=== PATIENT | female | born 1940 | race Caucasian/White ===

== ENCOUNTER 2016-08-03 11:08 | Outpatient (CLI) | payer MEDICARE, OTHER | END 2016-08-03 11:09 | disposition home or self-care (01) | DX: I48.91 Unspecified atrial fibrillation (principal); Z79.01 Long term (current) use of anticoagulants ==

== ENCOUNTER 2016-08-29 13:43 | Outpatient (CLI) | payer MEDICARE, OTHER | END 2016-08-29 13:44 | disposition home or self-care (01) | DX: I42.9 Cardiomyopathy, unspecified (principal); I50.32 Chronic diastolic (congestive) heart failure; I10 Essential (primary) hypertension ==

== ENCOUNTER 2016-08-31 13:42 | Outpatient (CLI) | payer MEDICARE, OTHER | END 2016-08-31 13:43 | disposition home or self-care (01) | DX: I48.91 Unspecified atrial fibrillation (principal); Z79.01 Long term (current) use of anticoagulants ==

== ENCOUNTER 2016-09-14 14:00 | Outpatient (CLI) | payer MEDICARE, OTHER | END 2016-09-14 14:01 | disposition home or self-care (01) | DX: Z79.01 Long term (current) use of anticoagulants (principal); I48.91 Unspecified atrial fibrillation ==

== ENCOUNTER 2016-10-13 10:09 | Outpatient (CLI) | payer MEDICARE, OTHER | END 2016-10-13 10:10 | disposition home or self-care (01) | DX: I48.91 Unspecified atrial fibrillation (principal); Z79.01 Long term (current) use of anticoagulants ==

== ENCOUNTER 2016-11-13 10:10 | Outpatient (CLI) | payer MEDICARE, OTHER | END 2016-11-13 10:11 | disposition home or self-care (01) | DX: I48.91 Unspecified atrial fibrillation (principal); Z79.01 Long term (current) use of anticoagulants ==

== ENCOUNTER 2016-11-27 09:23 | Outpatient (CLI) | payer MEDICARE, OTHER | END 2016-11-27 09:24 | disposition home or self-care (01) | LOC: LAB.F 09:23 | PROVIDERS: ATTEND Internal Medicine | DX: I48.91 Unspecified atrial fibrillation (principal); Z79.01 Long term (current) use of anticoagulants | CPT/HCPCS: 85610 ==

== ENCOUNTER 2016-12-06 09:24 | Outpatient (CLI) | payer MEDICARE, OTHER | END 2016-12-06 09:25 | disposition home or self-care (01) | LOC: LAB.F 09:24 | PROVIDERS: ATTEND Internal Medicine | DX: I48.91 Unspecified atrial fibrillation (principal); Z79.01 Long term (current) use of anticoagulants | CPT/HCPCS: 85610 ==

== ENCOUNTER 2017-01-03 12:48 | Outpatient (CLI) | payer MEDICARE, OTHER | END 2017-01-03 12:49 | disposition home or self-care (01) | LOC: LAB.F 12:48 | PROVIDERS: ATTEND Internal Medicine | DX: I48.91 Unspecified atrial fibrillation (principal); Z79.01 Long term (current) use of anticoagulants | CPT/HCPCS: 85610 ==

== ENCOUNTER 2017-01-31 10:38 | Outpatient (CLI) | payer MEDICARE, OTHER ==
[2017-01-31 18:57] LABS: CALCIUM 9.3 mg/dL (8.5-10.3); POTASSIUM 4.1 mmol/L (3.5-5.0)
== END 2017-01-31 10:39 | disposition home or self-care (01) ==
LOC: LAB.F 10:38
PROVIDERS: ATTEND Internal Medicine
DX: I48.91 Unspecified atrial fibrillation (principal); I34.0 Nonrheumatic mitral (valve) insufficiency; Z79.01 Long term (current) use of anticoagulants; I49.5 Sick sinus syndrome; I47.2 Ventricular tachycardia; I10 Essential (primary) hypertension; I42.9 Cardiomyopathy, unspecified
CPT/HCPCS: 36415; 80048; 83880; 85610

== ENCOUNTER 2017-02-28 09:48 | Outpatient (CLI) | payer MEDICARE, OTHER | END 2017-02-28 09:49 | disposition home or self-care (01) | LOC: LAB.F 09:48 | PROVIDERS: ATTEND Internal Medicine | DX: I48.91 Unspecified atrial fibrillation (principal); Z79.01 Long term (current) use of anticoagulants | CPT/HCPCS: 85610 ==

== ENCOUNTER 2017-03-14 08:43 | Outpatient (CLI) | payer MEDICARE, OTHER | END 2017-03-14 08:44 | disposition home or self-care (01) | LOC: LAB.F 08:43 | PROVIDERS: ATTEND Internal Medicine | DX: I48.91 Unspecified atrial fibrillation (principal); Z79.01 Long term (current) use of anticoagulants | CPT/HCPCS: 85610 ==

== ENCOUNTER 2017-03-28 11:23 | Outpatient (CLI) | payer MEDICARE, OTHER | END 2017-03-28 11:24 | disposition home or self-care (01) | LOC: LAB.F 11:23 | PROVIDERS: ATTEND Internal Medicine | DX: I48.91 Unspecified atrial fibrillation (principal); Z79.01 Long term (current) use of anticoagulants | CPT/HCPCS: 85610 ==

== ENCOUNTER 2017-04-04 09:02 | Outpatient (CLI) | payer MEDICARE, OTHER ==
[2017-04-04 18:41] LABS: CALCIUM 9.1 mg/dL (8.5-10.3); POTASSIUM 4.2 mmol/L (3.5-5.0)
== END 2017-04-04 09:03 | disposition home or self-care (01) ==
LOC: LAB.F 09:02
PROVIDERS: ATTEND Internal Medicine Cardiovascular Disease
DX: I10 Essential (primary) hypertension (principal); I50.32 Chronic diastolic (congestive) heart failure
CPT/HCPCS: 36415; 80048; 83880

== ENCOUNTER 2017-04-11 12:49 | Outpatient (CLI) | payer MEDICARE, OTHER | END 2017-04-11 12:50 | disposition home or self-care (01) | LOC: LAB.F 12:49 | PROVIDERS: ATTEND Internal Medicine | DX: Z79.01 Long term (current) use of anticoagulants (principal); I48.91 Unspecified atrial fibrillation | CPT/HCPCS: 85610 ==

== ENCOUNTER 2017-04-18 13:03 | Outpatient (CLI) | payer MEDICARE, OTHER | END 2017-04-18 13:04 | disposition home or self-care (01) | LOC: LAB.F 13:03 | PROVIDERS: ATTEND Internal Medicine | DX: I48.91 Unspecified atrial fibrillation (principal); Z79.01 Long term (current) use of anticoagulants | CPT/HCPCS: 85610 ==

== ENCOUNTER 2017-06-13 09:35 | Outpatient (CLI) | payer MEDICARE, OTHER | END 2017-06-13 09:36 | disposition home or self-care (01) | LOC: LAB.F 09:35 | PROVIDERS: ATTEND Internal Medicine | DX: I48.91 Unspecified atrial fibrillation (principal); Z79.01 Long term (current) use of anticoagulants | CPT/HCPCS: 85610 ==

== ENCOUNTER 2017-07-11 10:46 | Outpatient (CLI) | payer MEDICARE, OTHER ==
[2017-07-11 17:47] LABS: BASOPHILS % (AUTO) 0.7 %; EOSINOPHILS # (AUTO) 0.2 10^3/uL (0.0-0.7); EOSINOPHILS % (AUTO) 3.2 %; HGB - HEMOGLOBIN 14.8 g/dL (12.0-16.0); LYMPHOCYTES % (AUTO) 19.9 %; MEAN CORPUSCULAR HEMOGLOBIN 31.4 pg (27.0-31.0); MEAN CORPUSCULAR HGB CONC 33.1 g/dL (32.0-36.0); MEAN PLATELET VOLUME 9.2 fL (7.9-10.8); MONOCYTES # (AUTO) 0.4 10^3/uL (0.0-1.0); MONOCYTES % (AUTO) 7.5 %; NEUTROPHILS # (AUTO) 3.4 10^3/uL (1.5-6.6); NEUTROPHILS % (AUTO) 68.7 %; PLT - PLATELET COUNT 170 10^3/uL (130-450); RED BLOOD COUNT 4.71 10^6/uL (4.20-5.40); WHITE BLOOD COUNT 4.9 x10^3/uL (4.8-10.8)
[2017-07-11 18:04] LABS: ALBUMIN 4.2 g/dL (3.2-5.5); ALBUMIN/GLOBULIN RATIO 1.4 (1.0-2.2); ALKALINE PHOSPHATASE 62 IU/L (42-121); ALT ALANINE AMINOTRANSFERASE 14 IU/L (10-60); AST ASPARTATE AMINOTRANSFERASE 26 IU/L (10-42); BILIRUBIN,TOTAL 0.9 mg/dL (0.2-1.0); BUN - BLOOD UREA NITROGEN 25 mg/dL (6-20); CALCIUM 8.9 mg/dL (8.5-10.3); CARBON DIOXIDE - CO2 25 mmol/L (21-32); CHLORIDE 103 mmol/L (101-111); CHOL/HDL RATIO 2.1 (<4.4); CHOLESTEROL 177 mg/dL; CREATININE 0.9 mg/dL (0.4-1.0); GFR - MDRD 61 (>89); GLUCOSE 95 mg/dL (70-100); HDL CHOLESTEROL 83 mg/dL; LDL CHOLESTEROL,CALCULATED 83 mg/dL; SODIUM 136 mmol/L (135-145); TOTAL PROTEIN 7.1 g/dL (6.7-8.2); VLDL CHOLESTEROL 11 mg/dL
[2017-07-11 18:29] LABS: HB2 TOTAL 16.2 g/dL; HEMOGLOBIN A1C 0.62 g/dL; HEMOGLOBIN A1C % 5.7 % (4.6-6.2)
== END 2017-07-11 10:47 | disposition home or self-care (01) ==
LOC: LAB.F 10:46
PROVIDERS: ATTEND Internal Medicine
DX: I48.91 Unspecified atrial fibrillation (principal); R73.9 Hyperglycemia, unspecified; I10 Essential (primary) hypertension; Z79.01 Long term (current) use of anticoagulants; I45.9 Conduction disorder, unspecified; J45.909 Unspecified asthma, uncomplicated
CPT/HCPCS: 36415; 80053; 80061; 83036; 85025; 85610

== ENCOUNTER 2017-07-31 12:01 | Outpatient (CLI) | payer MEDICARE, OTHER ==
--- NOTE | 2017-08-01 16:06 | Mammography Report ---
DATE OF SERVICE: 07/31/2017 DIGITAL SCREENING MAMMOGRAM: 07/31/2017 CLINICAL INDICATION: A 77-year-old, for screening. COMPARISON: 07/2015, 07/2014, 03/2013, 02/2012, 01/2011, 01/2010. TECHNIQUE: Routine CC and MLO projections were obtained of the breasts. FINDINGS: The breasts again demonstrate scattered fibroglandular densities bilaterally. Coarse and punctate, typically benign calcifications are present. No suspicious masses, clustered microcalcifications, or regions of architectural distortion are identified. IMPRESSION: BENIGN FINDINGS. RECOMMENDATION: ROUTINE ANNUAL SCREENING UNLESS OTHERWISE CLINICALLY INDICATED. BIRADS CATEGORY 2-BENIGN FINDINGS. STANDARD QUALIFYING STATEMENTS: 1. This examination was reviewed with the aid of Computer-Aided Detection (CAD). 2. A negative or benign imaging report should not delay biopsy if clinically suspicious findings are present. Consider surgical consultation if warranted. More than 5% of cancers are not identified by imaging. 3. Dense breasts may obscure an underlying neoplasm. TD: 08/01/2017 17:04
== END 2017-07-31 12:02 | disposition home or self-care (01) ==
LOC: DI 12:01
PROVIDERS: ATTEND Internal Medicine
DX: Z12.31 Encounter for screening mammogram for malignant neoplasm of breast (principal)
CPT/HCPCS: 77067

== ENCOUNTER 2017-08-07 10:45 | Outpatient (CLI) | payer MEDICARE, OTHER | END 2017-08-07 10:46 | disposition home or self-care (01) | LOC: LAB.F 10:45 | PROVIDERS: ATTEND Internal Medicine | DX: I48.91 Unspecified atrial fibrillation (principal); Z79.01 Long term (current) use of anticoagulants | CPT/HCPCS: 85610 ==

== ENCOUNTER 2017-08-21 11:01 | Outpatient (CLI) | payer MEDICARE, OTHER | END 2017-08-21 11:02 | disposition home or self-care (01) | LOC: LAB.F 11:01 | PROVIDERS: ATTEND Internal Medicine | DX: I48.91 Unspecified atrial fibrillation (principal); Z79.01 Long term (current) use of anticoagulants | CPT/HCPCS: 85610 ==

== ENCOUNTER 2017-09-05 12:41 | Outpatient (CLI) | payer MEDICARE, OTHER | END 2017-09-05 12:42 | disposition home or self-care (01) | LOC: LAB.F 12:41 | PROVIDERS: ATTEND Internal Medicine | DX: I48.91 Unspecified atrial fibrillation (principal); Z79.01 Long term (current) use of anticoagulants | CPT/HCPCS: 85610 ==

== ENCOUNTER 2017-10-04 12:53 | Outpatient (CLI) | payer MEDICARE, OTHER | END 2017-10-04 12:54 | disposition home or self-care (01) | LOC: LAB.F 12:53 | PROVIDERS: ATTEND Internal Medicine | DX: I48.91 Unspecified atrial fibrillation (principal); Z79.01 Long term (current) use of anticoagulants | CPT/HCPCS: 85610 ==

== ENCOUNTER 2017-11-01 11:16 | Outpatient (CLI) | payer MEDICARE, OTHER | END 2017-11-01 11:17 | disposition home or self-care (01) | LOC: LAB.F 11:16 | PROVIDERS: ATTEND Internal Medicine | DX: I48.91 Unspecified atrial fibrillation (principal); Z79.01 Long term (current) use of anticoagulants | CPT/HCPCS: 85610 ==

== ENCOUNTER 2017-11-20 10:20 | Outpatient (CLI) | payer MEDICARE, OTHER | END 2017-11-20 10:21 | disposition home or self-care (01) | LOC: LAB.F 10:20 | PROVIDERS: ATTEND Internal Medicine | DX: I48.91 Unspecified atrial fibrillation (principal); Z79.01 Long term (current) use of anticoagulants | CPT/HCPCS: 85610 ==

== ENCOUNTER 2017-12-05 09:28 | Outpatient (CLI) | payer MEDICARE, OTHER | END 2017-12-05 09:29 | disposition home or self-care (01) | LOC: LAB.F 09:28 | PROVIDERS: ATTEND Internal Medicine | DX: I48.91 Unspecified atrial fibrillation (principal); Z79.01 Long term (current) use of anticoagulants | CPT/HCPCS: 85610 ==

== ENCOUNTER 2017-12-20 13:06 | Outpatient (CLI) | payer MEDICARE, OTHER ==
[2017-12-20 17:43] LABS: PT - PROTHROMBIN TIME 47.9 secs (9.9-12.6)
[2017-12-20 17:52] LABS: INR 4.5 (0.8-1.2)
== END 2017-12-20 13:07 | disposition home or self-care (01) ==
LOC: LAB.F 13:06
PROVIDERS: ATTEND Internal Medicine
DX: I48.91 Unspecified atrial fibrillation (principal); Z79.01 Long term (current) use of anticoagulants
CPT/HCPCS: 36415; 85610

== ENCOUNTER 2017-12-27 13:04 | Outpatient (CLI) | payer MEDICARE, OTHER | END 2017-12-27 13:05 | disposition home or self-care (01) | LOC: LAB.F 13:04 | PROVIDERS: ATTEND Internal Medicine | DX: I48.91 Unspecified atrial fibrillation (principal); Z79.01 Long term (current) use of anticoagulants | CPT/HCPCS: 85610 ==

== ENCOUNTER 2018-01-10 10:09 | Outpatient (CLI) | payer MEDICARE, OTHER | END 2018-01-10 10:10 | disposition home or self-care (01) | LOC: LAB.F 10:09 | PROVIDERS: ATTEND Internal Medicine | DX: I48.91 Unspecified atrial fibrillation (principal); Z79.01 Long term (current) use of anticoagulants | CPT/HCPCS: 85610 ==

== ENCOUNTER 2018-01-24 13:09 | Outpatient (CLI) | payer MEDICARE, OTHER | END 2018-01-24 13:10 | disposition home or self-care (01) | LOC: LAB.F 13:09 | PROVIDERS: ATTEND Internal Medicine | DX: I48.91 Unspecified atrial fibrillation (principal); Z79.01 Long term (current) use of anticoagulants | CPT/HCPCS: 85610 ==

== ENCOUNTER 2018-01-31 14:19 | Outpatient (CLI) | payer MEDICARE, OTHER | END 2018-01-31 14:20 | disposition home or self-care (01) | LOC: LAB.F 14:19 | PROVIDERS: ATTEND Internal Medicine | DX: I48.91 Unspecified atrial fibrillation (principal); Z79.01 Long term (current) use of anticoagulants | CPT/HCPCS: 85610 ==

== ENCOUNTER 2018-02-14 13:20 | Outpatient (CLI) | payer MEDICARE, OTHER | END 2018-02-14 13:21 | disposition home or self-care (01) | LOC: LAB.F 13:20 | PROVIDERS: ATTEND Internal Medicine | DX: I48.91 Unspecified atrial fibrillation (principal); Z79.01 Long term (current) use of anticoagulants | CPT/HCPCS: 85610 ==

== ENCOUNTER 2018-02-28 11:11 | Outpatient (CLI) | payer MEDICARE, OTHER | END 2018-02-28 11:12 | disposition home or self-care (01) | LOC: LAB.F 11:11 | PROVIDERS: ATTEND Internal Medicine | DX: I48.91 Unspecified atrial fibrillation (principal); Z79.01 Long term (current) use of anticoagulants | CPT/HCPCS: 85610 ==

== ENCOUNTER 2018-03-28 14:43 | Outpatient (CLI) | payer MEDICARE, OTHER | END 2018-03-28 14:44 | disposition home or self-care (01) | LOC: LAB.F 14:43 | PROVIDERS: ATTEND Internal Medicine | DX: I48.91 Unspecified atrial fibrillation (principal); Z79.01 Long term (current) use of anticoagulants | CPT/HCPCS: 85610 ==

== ENCOUNTER 2018-04-25 13:42 | Outpatient (CLI) | payer MEDICARE, OTHER | END 2018-04-25 13:43 | disposition home or self-care (01) | LOC: LAB.F 13:42 | PROVIDERS: ATTEND Internal Medicine | DX: I48.91 Unspecified atrial fibrillation (principal); Z79.01 Long term (current) use of anticoagulants | CPT/HCPCS: 85610 ==

== ENCOUNTER 2018-05-09 10:15 | Outpatient (CLI) | payer MEDICARE, OTHER | END 2018-05-09 10:16 | disposition home or self-care (01) | LOC: LAB.F 10:15 | PROVIDERS: ATTEND Internal Medicine | DX: I48.91 Unspecified atrial fibrillation (principal) | CPT/HCPCS: 85610 ==

== ENCOUNTER 2018-06-06 08:46 | Outpatient (CLI) | payer MEDICARE, OTHER | END 2018-06-06 08:47 | disposition home or self-care (01) | LOC: LAB.F 08:46 | PROVIDERS: ATTEND Internal Medicine | DX: I48.91 Unspecified atrial fibrillation (principal); Z79.01 Long term (current) use of anticoagulants | CPT/HCPCS: 85610 ==

== ENCOUNTER 2018-06-20 10:16 | Outpatient (CLI) | payer MEDICARE, OTHER | END 2018-06-20 10:17 | disposition home or self-care (01) | LOC: LAB.F 10:16 | PROVIDERS: ATTEND Internal Medicine | DX: I48.91 Unspecified atrial fibrillation (principal); Z79.01 Long term (current) use of anticoagulants | CPT/HCPCS: 85610 ==

== ENCOUNTER 2018-07-17 11:07 | Outpatient (CLI) | payer MEDICARE, OTHER ==
[2018-07-17 17:47] LABS: BASOPHILS % (AUTO) 0.6 %; EOSINOPHILS # (AUTO) 0.2 10^3/uL (0.0-0.7); EOSINOPHILS % (AUTO) 2.6 %; HGB - HEMOGLOBIN 15.4 g/dL (12.0-16.0); LYMPHOCYTES # (AUTO) 1.1 10^3/uL (1.5-3.5); LYMPHOCYTES % (AUTO) 17.6 %; MEAN CORPUSCULAR HGB CONC 32.7 g/dL (32.0-36.0); MEAN CORPUSCULAR VOLUME 97.7 fL (81.0-99.0); MEAN PLATELET VOLUME 9.3 fL (7.9-10.8); MONOCYTES # (AUTO) 0.5 10^3/uL (0.0-1.0); MONOCYTES % (AUTO) 8.3 %; NEUTROPHILS # (AUTO) 4.4 10^3/uL (1.5-6.6); NEUTROPHILS % (AUTO) 70.9 %; PLT - PLATELET COUNT 203 10^3/uL (130-450); RED BLOOD COUNT 4.83 10^6/uL (4.20-5.40); RED CELL DISTRIBUTION WIDTH 14.8 % (12.0-15.0); WHITE BLOOD COUNT 6.2 x10^3/uL (4.8-10.8)
[2018-07-17 17:55] LABS: ALBUMIN 4.1 g/dL (3.2-5.5); ALBUMIN/GLOBULIN RATIO 1.3 (1.0-2.2); CALCIUM 9.4 mg/dL (8.5-10.3); TOTAL PROTEIN 7.3 g/dL (6.7-8.2)
[2018-07-17 18:30] LABS: HB2 TOTAL 16.5 g/dL; HEMOGLOBIN A1C 0.62 g/dL; HEMOGLOBIN A1C % 5.6 % (4.6-6.2)
== END 2018-07-17 11:08 | disposition home or self-care (01) ==
LOC: LAB.F 11:07
PROVIDERS: ATTEND Internal Medicine
DX: R73.9 Hyperglycemia, unspecified (principal); N18.9 Chronic kidney disease, unspecified; I48.91 Unspecified atrial fibrillation; I12.9 Hypertensive chronic kidney disease with stage 1 through stage 4 chronic kidney disease, or unspecified chronic kidney disease; Z79.899 Other long term (current) drug therapy
CPT/HCPCS: 36415; 80053; 83036; 84443; 85025

== ENCOUNTER 2018-10-22 10:04 | Outpatient (CLI) | payer MEDICARE, OTHER ==
[2018-10-22 18:25] LABS: CALCIUM 9.6 mg/dL (8.5-10.3); CREATININE 1.1 mg/dL (0.4-1.0)
== END 2018-10-22 10:05 | disposition home or self-care (01) ==
LOC: LAB.F 10:04
PROVIDERS: ATTEND Internal Medicine Cardiovascular Disease
DX: I50.32 Chronic diastolic (congestive) heart failure (principal)
CPT/HCPCS: 36415; 80048; 83880

== ENCOUNTER 2019-02-14 09:09 | Outpatient (CLI) | payer MEDICARE, OTHER ==
[2019-02-14 17:37] LABS: BUN - BLOOD UREA NITROGEN 26 mg/dL (6-20); CALCIUM 9.7 mg/dL (8.5-10.3); CARBON DIOXIDE - CO2 23 mmol/L (21-32); CHLORIDE 104 mmol/L (101-111); CHOL/HDL RATIO 2.7 (<4.4); CHOLESTEROL 167 mg/dL; GFR - MDRD 54 (>89); GLUCOSE 115 mg/dL (70-100); HDL CHOLESTEROL 61 mg/dL; LDL CHOLESTEROL,CALCULATED 87 mg/dL; LDL/HDL RATIO 1.4 (<4.4); SODIUM 140 mmol/L (135-145); VLDL CHOLESTEROL 19 mg/dL
== END 2019-02-14 09:10 | disposition home or self-care (01) ==
LOC: LAB.S 09:09
PROVIDERS: ATTEND Internal Medicine Cardiovascular Disease
DX: I34.0 Nonrheumatic mitral (valve) insufficiency (principal); I42.9 Cardiomyopathy, unspecified; I50.32 Chronic diastolic (congestive) heart failure; I48.2 Chronic atrial fibrillation; I11.0 Hypertensive heart disease with heart failure
CPT/HCPCS: 36415; 80048; 80061; 81599; 82172; 83721; 83880

== ENCOUNTER 2019-03-10 09:02 | Outpatient (CLI) | payer MEDICARE | END 2019-03-10 09:03 | disposition EMS.NT | LOC: EMS 09:02 | PROVIDERS: ATTEND Surgery | DX: R10.30 Lower abdominal pain, unspecified (principal) ==

== ENCOUNTER 2019-03-10 13:22 | Emergency (ER) | payer MEDICARE ==
--- NOTE | 2019-03-10 13:52 | ED Physician Documentation ---
History of Present Illness - Stated complaint Stated Complaint: SOA - Chief complaint Chief Complaint: Abd Pain - History obtained from History obtained from: Patient, Family - History of Present Illness Pain level max: 5 Pain level now: 3 - Additonal information Additional information: 79 year old female with a history of CHF, states shortness of breath increased for the past month. Saw her assembly hand and states that he said everything was "okay". No chest pain. No palpitations. No history of coronary artery disease per the patient. She does have a pacemaker in place. Does not know when her last echocardiogram was. Does not use oxygen at home. She also states that she has had intermittent lower abdominal pain for the past several days. Stools have been normal. No vomiting. Occasional nausea. Nothing makes it better or worse. Review of Systems Ten Systems: 10 systems reviewed and negative Constitutional: denies: Fever, Chills Ears: denies: Ear pain Nose: denies: Rhinorrhea / runny nose, Congestion Respiratory: denies: Dyspnea, Cough GI: denies: Vomiting, Diarrhea Skin: denies: Rash Musculoskeletal: reports: Back pain (chronic and unchanged.). 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: None : Incontinence, Frequency HEENT: None Psych: Depression, Anxiety Musculoskeletal: Osteoarthritis, Chronic back pain Derm: Eczema - Past Surgical History Past Surgical History: Yes Ortho: Knee replacement, Arthroscopic surgery, Spine surgery, Other /ENGINEERING DESIGN SUPERVISOR: Dilation and currettage Cardiovascular: Pacemaker - Present Medications Home Medications: Ambulatory Orders Medication Instructions Recorded Confirmed Acetaminophen [Pain Relief] 2 each PO BID 08/26/13 03/10/19 Carvedilol [Coreg] 25 mg PO BID 08/26/13 03/10/19 Cholecalciferol (Vitamin D3) 1 unit PO DAILY 08/26/13 03/10/19 [Vitamin D] Morphine Sulfate [Morphine Sulfate 30 mg PO BID 08/26/13 03/10/19 ER] Albuterol Sulf [Ventolin Hfa 1 - 2 puffs INH Q4HR PRN #1 inhaler 03/10/19 Inhaler] Celecoxib 200 mg PO DAILY 03/10/19 03/10/19 DULoxetine [Cymbalta] 30 mg PO DAILY 03/10/19 03/10/19 Dabigatran Etexilate Mesylate 150 mg PO 03/10/19 [Pradaxa] Pregabalin [Lyrica] 75 mg PO 03/10/19 Spironolactone 50 mg PO 03/10/19 - Allergies Allergies/Adverse Reactions: Allergies Allergy/AdvReac Type Severity Reaction Status Date / Time ibuprofen [From Advil] Allergy Intermediate Rash Verified 08/26/13 10:17 gabapentin Allergy Hives Verified 03/10/19 13:45 - Social History Does the pt smoke?: No Smoking Status: Never smoker Does the pt drink ETOH?: No Does the pt have substance abuse?: No - Immunizations Immunizations are current?: Yes - POLST Patient has POLST: No PD ED PE NORMAL - Vitals Vital signs reviewed: Yes - General General: Alert and oriented X 3, No acute distress, Well developed/nourished, Other (morbidly obese) - HEENT HEENT: PERRL, Moist mucous membranes - Neck Neck: Supple, no meningeal sign - Cardiac Cardiac: RRR, Strong equal pulses - Respiratory Respiratory: No respiratory distress, Clear bilaterally - Abdomen Abdomen: Soft, Non tender, Non distended, Other (easily reducible umbilical hernia) - Derm Derm: Warm and dry - Extremities Extremities: Other (trace edema B) - Neuro Neuro: Alert and oriented X 3 - Psych Psych: Normal mood, Normal affect Results - Vitals Vitals: Vital Signs - 24 hr 03/10/19 03/10/19 03/10/19 13:28 14:56 15:39 Temperature 36.2 C L 36.6 C Heart Rate 89 62 70 Respiratory 18 15 18 Rate Blood Pressure 133/90 H 150/63 H O2 Saturation 97 96 Oxygen O2 Source Room air - EKG (time done) 1402 Rate: Rate (enter#) (60) Rhythm: Paced - Labs Labs: Laboratory Tests 03/10/19 03/10/19 03/10/19 13:55 13:55 13:55 WBC 7.7 RBC 4.74 Hgb 15.5 Hct 45.3 MCV 95.6 MCH 32.7 H MCHC 34.2 RDW 13.4 Plt Count 207 MPV 10.4 Neut # (Auto) 6.2 Lymph # (Auto) 1.1 L [place] # (Auto) 0.4 Eos # (Auto) 0.0 Baso # (Auto) 0.0 Absolute Nucleated RBC 0.00 Nucleated RBC % 0.0 Sodium 137 Potassium 4.3 Chloride 104 Carbon Dioxide 22 Anion Gap 11.0 BUN 23 H Creatinine 1.1 H Estimated GFR (MDRD) 48 L Glucose 121 H Calcium 9.9 Total Bilirubin 1.3 H AST 27 ALT 19 Alkaline Phosphatase 69 Troponin I High Sens 15.9 H* B-Natriuretic Peptide Total Protein 7.6 Albumin 4.1 Globulin 3.5 Albumin/Globulin Ratio 1.2 Lipase 15 L 03/10/19 13:55 WBC RBC Hgb Hct MCV MCH MCHC RDW Plt Count MPV Neut # (Auto) Lymph # (Auto) [place] # (Auto) Eos # (Auto) Baso # (Auto) Absolute Nucleated RBC Nucleated RBC % Sodium Potassium Chloride Carbon Dioxide Anion Gap BUN Creatinine Estimated GFR (MDRD) Glucose Calcium Total Bilirubin AST ALT Alkaline Phosphatase Troponin I High Sens B-Natriuretic Peptide 75 Total Protein Albumin Globulin Albumin/Globulin Ratio Lipase - Rads (name of study) cxr Radiology: Prelim report reviewed, EMP read contemporaneously, See rad report (No radiographic evidence for acute cardiopulmonary process. ) PD MEDICAL DECISION MAKING - ED course Complexity details: reviewed old records, reviewed results, re-evaluated patient, considered differential, d/w patient, d/w family ED course: 79-year-old female presents to the emergency department with shortness of breath for the past month. Also intermittent abdominal pain for several days. No significant laboratory abnormalities. EKG does not show any acute abnormalities. Chest x-ray does not show any acute abnormalities. She actually feels much better with an albuterol treatment. Abdominal pain resolved as well. Abdomen is soft, nontender nondistended. She is ambulating without difficulty. Will place on an albuterol inhaler and follow-up with her doctor. Patient counseled regarding signs and symptoms for which I believe and urgent re- evaluation would be necessary. Patient with good understanding of and agreement to plan and is comfortable going home at this time This document was made in part using voice recognition software. While efforts are made to proofread this document, sound alike and grammatical errors may occur. Departure - Departure Disposition: 01 Home, Self Care Clinical Impression: Dyspnea Qualifiers: Dyspnea type: unspecified Qualified Code(s): R06.00 - Dyspnea, unspecified Abdominal pain Qualifiers: Abdominal location: generalized Qualified Code(s): R10.84 - Generalized abdominal pain Condition: Good Instructions: ED Abdominal Pain Unkn Cause, ED Dyspnea Shortness of Breath Follow-Up: Ladarius Johns MD [Primary Care Provider] - Within 1 week Prescriptions: Albuterol Sulf [Ventolin Hfa Inhaler] 1 - 2 puffs INH Q4HR PRN #1 inhaler PRN Reason: Shortness Of Air/Wheezing Comments: The cause of your symptoms is unclear today. Follow-up with your doctor for further care. You can use the albuterol as needed as well. The prescription was sent to [facility] in [place]. Discharge Date/Time: 03/10/19 15:40
[2019-03-10 13:59] LABS: BASOPHILS % (AUTO) 0.4 %; EOSINOPHILS % (AUTO) 0.3 %; HGB - HEMOGLOBIN 15.5 g/dL (12.0-16.0); LYMPHOCYTES # (AUTO) 1.1 10^3/uL (1.5-3.5); LYMPHOCYTES % (AUTO) 13.8 %; MEAN CORPUSCULAR HEMOGLOBIN 32.7 pg (27.0-31.0); MEAN CORPUSCULAR HGB CONC 34.2 g/dL (32.0-36.0); MEAN CORPUSCULAR VOLUME 95.6 fL (81.0-99.0); MEAN PLATELET VOLUME 10.4 fL (7.9-10.8); MONOCYTES # (AUTO) 0.4 10^3/uL (0.0-1.0); MONOCYTES % (AUTO) 5.2 %; NEUTROPHILS # (AUTO) 6.2 10^3/uL (1.5-6.6); NEUTROPHILS % (AUTO) 79.8 %; PLT - PLATELET COUNT 207 10^3/uL (130-450); RED BLOOD COUNT 4.74 10^6/uL (4.20-5.40); RED CELL DISTRIBUTION WIDTH 13.4 % (12.0-15.0); WHITE BLOOD COUNT 7.7 x10^3/uL (4.8-10.8)
[2019-03-10 14:13] LABS: ALBUMIN 4.1 g/dL (3.2-5.5); ALBUMIN/GLOBULIN RATIO 1.2 (1.0-2.2); BILIRUBIN,TOTAL 1.3 mg/dL (0.2-1.0); CALCIUM 9.9 mg/dL (8.5-10.3); CREATININE 1.1 mg/dL (0.4-1.0); TOTAL PROTEIN 7.6 g/dL (6.7-8.2)
--- NOTE | 2019-03-10 14:16 | XRAY Report ---
Reason: chest pain Procedure Date: 03/10/2019 Accession Number: [id number] / [id number] Procedure: XR - Chest 1 View X-Ray CPT Code: 82063 FULL RESULT: EXAM: CHEST RADIOGRAPHY EXAM DATE: 03/10/2019 02:01 PM. CLINICAL HISTORY: Chest pain. COMPARISON: 11/28/2013 12:03 PM. TECHNIQUE: 1 view. FINDINGS: Lungs/Pleura: No focal opacities evident. No pleural effusion. No pneumothorax. Mediastinum: Stable heart size and mediastinum. Stable position of lead for cardiac pacemaker. Other: None. IMPRESSION: No radiographic evidence for acute cardiopulmonary process. RADIA
[2019-03-10] MEDS ORDERED: LORazepam 2 MG/ML VIAL IVP STA (14:39)
[2019-03-10] MEDS ORDERED: ALBUTEROL NEB 2.5 MG/3 ML INH STA (14:39)
[2019-03-10 15:40] VITALS: BP 150/63
== END 2019-03-10 15:40 | disposition home or self-care (01) ==
LOC: ED 13:22
DX: R06.00 Dyspnea, unspecified (principal); R10.84 Generalized abdominal pain; I10 Essential (primary) hypertension
CPT/HCPCS: 36415; 71045; 80053; 83690; 83880; 84484; 85025; 93005; 94640; 99284

== ENCOUNTER 2019-07-28 10:40 | Outpatient (CLI) | payer MEDICARE ==
[2019-07-28] MEDS ORDERED: IOVERSOL 320 100 ML VIAL IVP ONE ×2 (10:48→14:11)
[2019-07-28] MEDS ORDERED: IOVERSOL 320 50 ML VIAL ONE (10:48)
[2019-07-28 11:24] LABS: CREATININE 1.2 mg/dL (0.4-1.0)
[2019-07-28] MEDS ORDERED: IOVERSOL 320 50 ML VIAL PO ONE (14:11)
--- NOTE | 2019-07-29 03:09 | CT Report ---
Reason: STOMACH ULCER Procedure Date: 07/28/2019 Accession Number: [id number] / [id number] Procedure: CT - Abdomen/Pelvis W CPT Code: Final Report FULL RESULT: EXAM: CT ABDOMEN AND PELVIS EXAM DATE: 07/28/2019 12:12 PM. CLINICAL HISTORY: STOMACH ULCER. COMPARISONS: None. TECHNIQUE: Routine helical CT imaging was performed through the abdomen and pelvis. IV contrast: OPTI 320 90ML. Enteric contrast: Yes. Reconstructions: Coronal and sagittal. In accordance with CT protocol optimization, one or more of the following dose reduction techniques were utilized for this exam: automated exposure control, adjustment of mA and/or KV based on patient size, or use of iterative reconstructive technique. FINDINGS: Lung Bases: Bibasilar interstitial opacities are seen, which may reflect scarring versus atelectasis. Cardiomegaly. No pericardial effusion. Cardiac device leads are partially imaged extending into the right ventricle. Liver: 6 mm hypoattenuating lesion in the hepatic dome, which is too small to characterize but may represent a small cyst. No intrahepatic mass. Gallbladder/Bile Ducts: Distended gallbladder without gallbladder wall thickening or pericholecystic fluid. The common bile duct measures 6 mm near the ampulla. No intrahepatic or extrahepatic biliary dilatation. Spleen: Normal. Pancreas: Knee replacement. Adrenal Glands: Normal. Kidneys: Small focal areas of parenchymal scarring are seen in both kidneys. There is no renal mass or hydronephrosis. Peritoneal Cavity/Bowel: The stomach is distended and filled with contrast. No focal areas of gastric wall thickening are seen. The bowel gas pattern is nonobstructive. Diverticulosis is seen throughout the colon without evidence of diverticulitis. The appendix is normal. No free intraperitoneal air or pneumatosis is seen. There is no lymphadenopathy. No ascites is present. Pelvic Organs: The bladder is empty. The pelvic viscera are within normal limits. There is no free pelvic fluid. Vasculature: No aortic aneurysm. Mild atherosclerotic plaque calcifications are seen in the aorta and iliac arteries. Bones: Posterior spinal fusion instrumentation is seen at L2 L4 with a disk spacer at L3-L4. Grade 1 anterolisthesis is present at L3-L4. Degenerative disk disease is greatest at L2-L3. Other: None. IMPRESSION: 1. No gastric wall thickening to suggest gastritis. 2. Diverticulosis without evidence of diverticulitis. 3. Small right hepatic dome hypoattenuating lesion, may represent a small cyst. 4. Minimal parenchymal scarring in both kidneys. RADIA
== END 2019-07-28 10:41 | disposition home or self-care (01) ==
LOC: DI 10:40
PROVIDERS: ATTEND Internal Medicine Gastroenterology
DX: K57.30 Diverticulosis of large intestine without perforation or abscess without bleeding (principal); K76.9 Liver disease, unspecified
CPT/HCPCS: 36415; 74177; 82565; Q9967

== ENCOUNTER 2020-09-03 10:27 | Outpatient (CLI) | payer MEDICARE ==
[2020-09-03 15:35] LABS: CALCIUM 9.5 mg/dL (8.5-10.3); CREATININE 1.2 mg/dL (0.4-1.0); POTASSIUM 4.3 mmol/L (3.5-5.0)
== END 2020-09-03 10:28 | disposition home or self-care (01) ==
LOC: LAB.S 10:27
PROVIDERS: ATTEND Internal Medicine Cardiovascular Disease
DX: I50.32 Chronic diastolic (congestive) heart failure (principal)
CPT/HCPCS: 36415; 80048; 83880

== ENCOUNTER 2020-10-23 21:40 | Outpatient (CLI) | payer MEDICARE | END 2020-10-23 21:41 | disposition short-term general hospital (02) | LOC: EMS 21:40 | DX: R53.1 Weakness (principal); R41.0 Disorientation, unspecified; R47.81 Slurred speech; R60.0 Localized edema; L53.9 Erythematous condition, unspecified | CPT/HCPCS: A0425; A0429 ==

== ENCOUNTER 2021-02-19 17:58 | Outpatient (CLI) | payer MEDICARE | END 2021-02-19 17:59 | disposition EMS.NT | LOC: EMS 17:58 | DX: L53.9 Erythematous condition, unspecified (principal); R60.0 Localized edema ==

== ENCOUNTER 2021-02-19 19:12 | Inpatient (IN) | payer MEDICARE ==
[2021-02-19] MEDS ORDERED: AMPICILLIN/SULBACTAM 3 GM in SODIUM CHLORIDE 0.9% MINIBAG 100 ML IV STA (19:36)
[2021-02-19] MEDS ORDERED: MORPHINE 10 MG/ML VIAL IVP STA (19:36)
--- NOTE | 2021-02-19 19:37 | ED Physician Documentation ---
PD HPI LOWER EXT INJURY - Stated complaint Stated Complaint: RT LEG SCRATCH - Chief complaint Chief Complaint: Ext Problem - History obtained from History obtained from: Patient, Family - History of Present Illness Where injury occurred: Home Timing - details: Gradual onset Worsened by: Moving Associated symptoms: Swelling Contributing factors: No: Anticoagulated - Additional information Additional information: She is scratched by her dog 3 days ago, today it became red and swollen. No fevers. The thing that bothers her most actually is her chronic back pain. She generally does not feel well. Review of Systems Ten Systems: 10 systems reviewed and negative Constitutional: reports: Reviewed and negative Eyes: reports: Reviewed and negative Ears: reports: Reviewed and negative Nose: reports: Reviewed and negative Throat: reports: Reviewed and negative Cardiac: reports: Reviewed and negative PD PAST MEDICAL HISTORY - Past Medical History Cardiovascular: Congestive heart failure, Hypertension, Atrial fibrillation, Other Respiratory: Asthma Neuro: None Endocrine/Autoimmune: None GI: Other ELECTION SUPERVISOR: None : Incontinence, Frequency HEENT: None Psych: Depression, Anxiety Musculoskeletal: Osteoarthritis, Chronic back pain Derm: Eczema - Past Surgical History Past Surgical History: Yes Ortho: Knee replacement, Arthroscopic surgery, Spine surgery, Other /ELECTION SUPERVISOR: Dilation and currettage Cardiovascular: Pacemaker - Present Medications Home Medications: Ambulatory Orders Medication Instructions Recorded Confirmed Acetaminophen [Pain Relief] 2 each PO BID 08/26/13 02/19/21 Cholecalciferol (Vitamin D3) 1 unit PO DAILY 08/26/13 02/19/21 [Vitamin D] Morphine Sulfate [Morphine Sulfate 30 mg PO BID 08/26/13 02/19/21 ER] carvediloL [Coreg] 6.25 mg PO BID 08/26/13 02/19/21 DULoxetine [Cymbalta] 30 mg PO DAILY 03/10/19 02/19/21 Pregabalin [Lyrica] 75 mg PO BID 03/10/19 02/19/21 Spironolactone 50 mg PO QDBREAKFAST 03/10/19 02/19/21 Apixaban [Eliquis] 5 mg BID 02/19/21 02/19/21 Chlorthalidone 1 tab DAILY 02/19/21 02/19/21 Omeprazole [PriLOSEC] 1 cap DAILY 02/19/21 02/19/21 - Allergies Allergies/Adverse Reactions: Allergies Allergy/AdvReac Type Severity Reaction Status Date / Time ibuprofen [From Advil] Allergy Intermediate Rash Verified 02/19/21 19:15 gabapentin Allergy Hives Verified 02/19/21 19:15 - Social History Does the pt smoke?: No Smoking Status: Never smoker Does the pt drink ETOH?: No Does the pt have substance abuse?: No - Immunizations Immunizations are current?: Yes - POLST Patient has POLST: No PD ED PE NORMAL - Vitals Vital signs reviewed: Yes - General General: Alert and oriented X 3, No acute distress - HEENT HEENT: PERRL, EOMI - Neck Neck: Supple, no meningeal sign, No bony TTP - Cardiac Cardiac: RRR, No murmur - Respiratory Respiratory: No respiratory distress - Abdomen Abdomen: Normal bowel sounds, Non tender - Back Back: No CVA TTP, No spinal TTP - Derm Derm: Normal color, Warm and dry - Extremities Extremities: Other (There is a small jagged wound on the lateral right calf with just a touch of purulent drainage that was cultured during examination. There is beet red cellulitis up to the knee and down to the ankle.) - Neuro Neuro: Alert and oriented X 3, Normal speech - Psych Psych: Normal mood, Normal affect Results - Vitals Vitals: Vital Signs - 24 hr 02/19/21 02/19/21 02/19/21 19:15 19:20 20:14 Temperature 36.8 C Heart Rate 60 60 60 Respiratory 16 14 16 Rate Blood Pressure 118/55 L 125/70 125/70 O2 Saturation 98 95 93 Oxygen O2 Source Room air - Labs Labs: Microbiology 02/19/21 19:40 Wound Culture - Preliminary Leg - Right Laboratory Tests 02/19/21 02/19/21 02/19/21 19:46 19:46 19:46 WBC 17.7 H RBC 4.73 Hgb 15.4 Hct 47.1 H MCV 99.6 H MCH 32.6 H MCHC 32.7 RDW 14.3 Plt Count 195 MPV 10.3 Neut # (Auto) 16.6 H Lymph # (Auto) 0.3 L [place] # (Auto) 0.5 Eos # (Auto) 0.1 Baso # (Auto) 0.1 Absolute Nucleated RBC 0.00 Nucleated RBC % 0.0 Sodium 135 Potassium 4.2 Chloride 96 L Carbon Dioxide 28 Anion Gap 11.0 BUN 28 H Creatinine 1.4 H Estimated GFR (MDRD) 36 L Glucose 144 H Lactic Acid 2.5 H Calcium 9.3 Nasal Adenovirus (PCR) Nasal B. parapertussis DNA (PCR) Nasal Coronavir 229E PCR Nasal Coronavir HKU1 PCR Nasal Coronavir NL63 PCR Nasal Coronavir OC43 PCR Nasal Enterovir/Rhinovir PCR Nasal Influenza B PCR Nasal Influenza A PCR Nasal Parainfluen 1 PCR Nasal Parainfluen 2 PCR Nasal Parainfluen 3 PCR Nasal Parainfluen 4 PCR Nasal RSV (PCR) Nasal B.pertussis DNA PCR Nasal C.pneumoniae (PCR) Gurwinder Human Metapneumo PCR Nasal M.pneumoniae (PCR) Nasal SARS-CoV-2 (PCR) 02/19/21 20:21 WBC RBC Hgb Hct MCV MCH MCHC RDW Plt Count MPV Neut # (Auto) Lymph # (Auto) [place] # (Auto) Eos # (Auto) Baso # (Auto) Absolute Nucleated RBC Nucleated RBC % Sodium Potassium Chloride Carbon Dioxide Anion Gap BUN Creatinine Estimated GFR (MDRD) Glucose Lactic Acid Calcium Nasal Adenovirus (PCR) NOT DETECTED Nasal B. parapertussis DNA (PCR) NOT DETECTED Nasal Coronavir 229E PCR NOT DETECTED Nasal Coronavir HKU1 PCR NOT DETECTED Nasal Coronavir NL63 PCR NOT DETECTED Nasal Coronavir OC43 PCR NOT DETECTED Nasal Enterovir/Rhinovir PCR NOT DETECTED Nasal Influenza B PCR NOT DETECTED Nasal Influenza A PCR NOT DETECTED Nasal Parainfluen 1 PCR NOT DETECTED Nasal Parainfluen 2 PCR NOT DETECTED Nasal Parainfluen 3 PCR NOT DETECTED Nasal Parainfluen 4 PCR NOT DETECTED Nasal RSV (PCR) NOT DETECTED Nasal B.pertussis DNA PCR NOT DETECTED Nasal C.pneumoniae (PCR) NOT DETECTED Gurwinder Human Metapneumo PCR NOT DETECTED Nasal M.pneumoniae (PCR) NOT DETECTED Nasal SARS-CoV-2 (PCR) NOT DETECTED PD MEDICAL DECISION MAKING - ED course ED course: This is an 81-year-old with pretty significant right lower extremity cellulitis from a dog scratch. Could be staphylococcal versus Pasteurella. She was administered Unasyn IV and labs were checked. Labs are notable for a white count of 17,000 and mild acute kidney injury with her creatinine being 1.4, her usual is closer to 1.1-1.2. Lactate is elevated although not alarmingly at 2.5. Given the above findings will add vancomycin and admit for further evaluation and treatment. Departure - Departure Disposition: 66 [facility] DC/Xfer Clinical Impression: Cellulitis of right lower extremity, Lactic acidosis, Acute kidney injury Condition: Serious Discharge Date/Time: 02/19/21 21:49
[2021-02-19 19:56] LABS: BASOPHILS # (AUTO) 0.1 10^3/uL (0.0-0.1); BASOPHILS % (AUTO) 0.5 %; EOSINOPHILS # (AUTO) 0.1 10^3/uL (0.0-0.7); EOSINOPHILS % (AUTO) 0.5 %; HCT - HEMATOCRIT 47.1 % (37.0-47.0); HGB - HEMOGLOBIN 15.4 g/dL (12.0-16.0); LYMPHOCYTES # (AUTO) 0.3 10^3/uL (1.5-3.5); LYMPHOCYTES % (AUTO) 1.9 %; MEAN CORPUSCULAR HEMOGLOBIN 32.6 pg (27.0-31.0); MEAN CORPUSCULAR HGB CONC 32.7 g/dL (32.0-36.0); MEAN CORPUSCULAR VOLUME 99.6 fL (81.0-99.0); MEAN PLATELET VOLUME 10.3 fL (7.9-10.8); MONOCYTES # (AUTO) 0.5 10^3/uL (0.0-1.0); NEUTROPHILS # (AUTO) 16.6 10^3/uL (1.5-6.6); NEUTROPHILS % (AUTO) 93.6 %; PLT - PLATELET COUNT 195 10^3/uL (130-450); RED BLOOD COUNT 4.73 10^6/uL (4.20-5.40); RED CELL DISTRIBUTION WIDTH 14.3 % (12.0-15.0); WHITE BLOOD COUNT 17.7 x10^3/uL (4.8-10.8)
[2021-02-19 20:03] LABS: CALCIUM 9.3 mg/dL (8.5-10.3); CREATININE 1.4 mg/dL (0.4-1.0); POTASSIUM 4.2 mmol/L (3.5-5.0)
[2021-02-19] MEDS ORDERED: MORPHINE 2 MG/ML CARPUJECT IVP STA (20:14)
[2021-02-19] MEDS ORDERED: SODIUM CHLORIDE 0.9% 1,000 ML IV STA (20:14)
[2021-02-19] MEDS ORDERED: VANCOMYCIN INJ 2 GM in SODIUM CHLORIDE 0.9% 500 ML IV STA (20:14)
[2021-02-19] MEDS ORDERED: VANCOMYCIN 1 GM VIAL ONE (20:22)
[2021-02-19] MEDS ORDERED: ONDANSETRON 4 MG/2 ML VIAL IVP PRN (20:25)
--- NOTE | 2021-02-19 20:36 | HISTORY & PHYSICAL EXAMINATION ---
Chief Complaint - Chief Complaint Chief Complaint: right lower extremity redness and pain History of Present Illness - Admitted From Admitted From:: [facility] ED - History Obtained From Records Reviewed: yes History obtained from: patient - History of Present Illness HPI Comment/Other: Patient is an 81-year-old female who presented to the ED with right lower extremity redness. She was scratched by her dog 2 days ago. She reports a similar incident in the same limb in October 2020 as a result she was concerned about it and decided to be evaluated the ED. Her right lower extremity is erythematous from the knee down to the ankle. There is a scratch which was draining purulent material. This was cultured in the ED. She is afebrile. wever work-up included a CBC which showed a white count of 17. She also had a lactic acid of 2.5. As a result of her presentation she was presented for admission. At bedside she is very somnolent because of 9 mg of morphine she was given in the ED. As a result the history taking is limited. However she denied chest pain, abdominal pain, nausea, vomiting, fever or chills. History - Past Medical History Cardiovascular: reports: Congestive heart failure, Hypertension, Atrial fibrillation, Other Respiratory: reports: Asthma Neuro: reports: None Endocrine/Autoimmune: reports: None GI: reports: Other LINING STRAP CLOSER: reports: None : reports: Incontinence, Frequency HEENT: reports: None Psych: reports: Depression, Anxiety Musculoskeletal: reports: Osteoarthritis, Chronic back pain Derm: reports: Eczema MRSA Hx?: No - Past Surgical History Ortho: reports: Knee replacement, Arthroscopic surgery, Spine surgery, Other /LINING STRAP CLOSER: reports: Dilation and currettage Cardiovascular: reports: Pacemaker - Family & Social History Family History Comment/Other: Cannot obtain Family history because the patient is currently very somnolent after receiving pain med Social History Notes: Cannot obtain Social history because the patient is currently very somnolent after receiving pain med - POLST Patient has POLST: No POLST Status: Full Code Meds/Allgy - Home Medications Home Medications: Ambulatory Orders Medication Instructions Recorded Confirmed Acetaminophen [Pain Relief] 1,000 mg PO BID 08/26/13 02/20/21 Cholecalciferol (Vitamin D3) 2,000 unit PO DAILY 08/26/13 02/20/21 [Vitamin D] Morphine Sulfate [Morphine Sulfate 30 mg PO BID 08/26/13 02/19/21 ER] carvediloL [Coreg] 6.25 mg PO BID 08/26/13 02/19/21 DULoxetine [Cymbalta] 30 mg PO DAILY 03/10/19 02/19/21 Pregabalin [Lyrica] 75 mg PO BID 03/10/19 02/19/21 Spironolactone 50 mg PO QDBREAKFAST 03/10/19 02/19/21 Apixaban [Eliquis] 5 mg BID 02/19/21 02/19/21 Chlorthalidone 25 mg PO DAILY 02/19/21 02/20/21 Omeprazole [PriLOSEC] 20 mg PO DAILY 02/19/21 02/20/21 - Allergies Allergies/Adverse Reactions: Allergies Allergy/AdvReac Type Severity Reaction Status Date / Time metolazone Allergy Severe Unknown Verified 02/20/21 14:14 ibuprofen [From Advil] Allergy Intermediate Rash Verified 02/19/21 19:15 gabapentin Allergy Hives Verified 02/19/21 19:15 Review of Systems - Constitutional Constitutional: denies: Fatigue, Fever, Chills - Eyes Eyes: denies: Pain - Ears, Nose & Throat Ears, Nose & Throat: denies: Ear pain - Cardiovascular Cariovascular: reports: Irregular heart rate. denies: Chest pain, Edema, Lightheadedness, Syncope - Respiratory Respiratory: denies: Cough, Sputum production, Wheezing, SOB at rest, SOB with exertion - Gastrointestinal Gastrointestinal: denies: Abdominal pain, Abdominal distention, Constipation, Nausea, Vomiting, Coffee grounds emesis, Reflux/heartburn - Musculoskeletal Musculoskeletal: reports: Back pain. denies: Muscle pain - Integumentary Integumentary: reports: Other (Erythematous right lower extremity from knee to ankle) - Neurological Neurological: denies: General weakness, Focal weakness, Headache, Dizziness - Psychiatric Psychiatric: denies: Depression, Anxiety - Endocrine Endocrine: denies: Polyuria, Polydypsia - Hematologic/Lymphatic Hematologic/Lymphatic: denies: Anemia, Bruising Prior Level of Functionality: Patient is independent of activities of daily living. Exam - Vital Signs Vital Signs: Vital Signs x48h Temp Pulse Resp BP Pulse Ox 02/19/21 20:14 60 16 125/70 93 02/19/21 19:20 60 14 125/70 95 02/19/21 19:15 36.8 C 60 16 118/55 L 98 - Physical Exam General Appearance: positive: Moderate distress, Severe distress, Other (Somnolent) Eyes Bilateral: positive: PERRL, EOMI ENT: positive: No signs of dehydration Neck: positive: No JVD, Trachea midline Respiratory: positive: Chest non-tender, No respiratory distress, Breath sounds nml. negative: Wheezes, Rales, Rhonchi Cardiovascular: positive: No murmur, No gallop, Irregularly irregular Abdomen: positive: Non-tender, No organomegaly, Nml bowel sounds Back: positive: Nml inspection Skin: positive: Warm, Other (right lower extremity erythema) Extremities: positive: Non-tender Neurologic/Psychiatric: positive: Mood/affect nml Sepsis Event Note (H) - Evaluation Current Stage of Sepsis: Sepsis Possible source of Sepsis: positive: Skin/soft tissue - Sepsis Criteria Sepsis Criteria: WBC count greater than 12,000 or less than 4000, Metabolic: lac thompson > 2 mmol/L Conclusion/Plan - Problem List (1) Sepsis Conclusion/Plan: 2/2 Right lower extremity cellulitis from a dog scratch On vancomycin and Unasyn Blood and wound cultures pending Lactic acid 2.5 Will trend lactic acid X2 more Patient was given 2L of fluids in the ED Could not administer fluids at 30ml/kg due to CHF (2) Cellulitis of right lower extremity Conclusion/Plan: 2/2 a dog scratch On vancomycin and Unasyn Blood and wound cultures pending Lactic acid 2.5 Will trend lactic acid X2 more Patient was given 2L of fluids in the ED Could not administer fluids at 30ml/kg due to CHF (3) Atrial fibrillation Conclusion/Plan: On carvedilol 6.25mg po bid On Eliquis 5mg po bid (4) CHF (congestive heart failure) Conclusion/Plan: On carvedilol and spironolactone. Will resume when appropriate. For now they were held while patient was hydrated per sepsis protocol (5) GERD (gastroesophageal reflux disease) Conclusion/Plan: On omeprazole 20mg po daily (6) Chronic back pain Conclusion/Plan: Morphine and oxycodone ordered prn On pregabalin 75mg po bid (7) Depression Conclusion/Plan: On duloxetine 30mg po daily (8) Hypertension Conclusion/Plan: Will resume spironolactone, carvedilol and chlorthalidone when appropriate to do so - Lab Results Fish Bones: 02/21/21 05:20 02/21/21 05:20 Core Measures - Anticipated LOS I expect patient to be DC'd or transferred within 96 hours.: Yes - DVT/VTE - Prophylaxis VTE/DVT Device ordered at admit?: Yes VTE/DVT Prophylaxis med ordered at admit?: Yes
[2021-02-19 21:25] LABS: B. PARAPERTUSSIS- RESP PCR PAN NOT DETECTED; B. PERTUSSIS- RESP PCR PANEL NOT DETECTED; C. PNEUMONIAE- RESP PCR PANEL NOT DETECTED; CORONAVIRUS 229E-RESP PCR NOT DETECTED; CORONAVIRUS HKU1-RESP PCR NOT DETECTED; CORONAVIRUS NL63-RESP PCR NOT DETECTED; CORONAVIRUS OC43-RESP PCR NOT DETECTED; HUMAN METAPNEUMOVIRUS NOT DETECTED; INFLUENZA A- RESP PCR PANEL NOT DETECTED; INFLUENZA B - RESP PCR PANEL NOT DETECTED; M. PNEUMONIAE- RESP PCR PANEL NOT DETECTED; PARAINFLUENZA VIRUS 1 NOT DETECTED; PARAINFLUENZA VIRUS 2 NOT DETECTED; PARAINFLUENZA VIRUS 3 NOT DETECTED; PARAINFLUENZA VIRUS 4 NOT DETECTED; RHINOVIRUS/ENTEROVIRUS NOT DETECTED; RSV- RESP PCR PANEL NOT DETECTED; SARS-CoV-2 -RESP PCR PANEL NOT DETECTED
[2021-02-20] MEDS: MORPHINE 2 MG/ML CARPUJECT IVP PRN ×3 (01:11→17:54)
[2021-02-20] MEDS: AMPICILLIN/SULBACTAM 3 GM in SODIUM CHLORIDE 0.9% MINIBAG 100 ML IV SCH ×4 (01:11→20:32)
[2021-02-20] MEDS: SODIUM CHLORIDE FLUSH 0.9% 10 ML SYRINGE IVP SCH ×3 (01:12→16:45)
[2021-02-20] MEDS: NYSTATIN POWDER 15 GM TOP SCH ×3 (02:08→21:49)
--- NOTE | 2021-02-20 07:33 | PHARMACY PROGRESS NOTE ---
- Best Possible Medication History Admit Date and Time: 02/19/212024 Processed by: Nursing Medication History completed: Yes As the person ultimately responsible for medication therapy, providers are able to order a medication from an existing home medication list in [facility] via the "Reconcile Routine" prior to Confirmation of that medication by practice support specialist. Such practice is discouraged except when the physician, in their clinical judgment, deems that a medical need exists for a medication without regard to previous use.
[2021-02-20 07:35] LABS: BASOPHILS # (AUTO) 0.1 10^3/uL (0.0-0.1); BASOPHILS % (AUTO) 0.5 %; EOSINOPHILS # (AUTO) 0.1 10^3/uL (0.0-0.7); EOSINOPHILS % (AUTO) 0.4 %; HGB - HEMOGLOBIN 14.8 g/dL (12.0-16.0); LYMPHOCYTES # (AUTO) 0.6 10^3/uL (1.5-3.5); LYMPHOCYTES % (AUTO) 4.1 %; MEAN CORPUSCULAR HEMOGLOBIN 32.9 pg (27.0-31.0); MEAN CORPUSCULAR HGB CONC 32.9 g/dL (32.0-36.0); MEAN PLATELET VOLUME 10.7 fL (7.9-10.8); MONOCYTES # (AUTO) 0.9 10^3/uL (0.0-1.0); MONOCYTES % (AUTO) 6.8 %; NEUTROPHILS # (AUTO) 11.8 10^3/uL (1.5-6.6); NEUTROPHILS % (AUTO) 87.6 %; PLT - PLATELET COUNT 144 10^3/uL (130-450); RED CELL DISTRIBUTION WIDTH 14.5 % (12.0-15.0); WHITE BLOOD COUNT 13.5 x10^3/uL (4.8-10.8)
[2021-02-20 07:48] LABS: CALCIUM 8.9 mg/dL (8.5-10.3); CREATININE 1.1 mg/dL (0.4-1.0); POTASSIUM 4.1 mmol/L (3.5-5.0)
[2021-02-20] MEDS: oxyCODONE 5 MG TABLET PO PRN ×2 (08:11→14:14)
[2021-02-20] MEDS: SODIUM CHLORIDE 0.9% 1,000 ML IV SCH ×3 (08:15→12:19)
[2021-02-20] MEDS: MORPHINE SULFATE ER 30 MG TABLET PO SCH ×2 (12:19→21:48)
[2021-02-20] MEDS: CYCLOBENZAPRINE 10 MG TABLET PO PRN ×2 (14:14→21:47)
[2021-02-20] MEDS ORDERED: VANCOMYCIN INJ 1 GM, VANCOMYCIN INJ 500 MG in SODIUM CHLORIDE 0.9% 500 ML IV SCH (18:00)
--- NOTE | 2021-02-20 19:29 | PROVIDER PROGRESS NOTE ---
Assessment/Plan - Problem List (1) Sepsis Assessment/Plan: Wound culture grew beta-hemolytic strep group G. Blood culture also grew Streptococcus species Vancomycin was discontinued. Patient was continued on Unasyn. There is significant improvement in the patient's lower extremity erythema White blood cell count improved from 17 down to 13. The patient remains afebrile. (2) Cellulitis of right lower extremity Assessment/Plan: Wound culture grew beta-hemolytic strep group G. Blood culture also grew Streptococcus species Vancomycin was discontinued. Patient was continued on Unasyn. There is significant improvement in the patient's lower extremity erythema White blood cell count improved from 17 down to 13. The patient remains afebrile. (3) Atrial fibrillation Assessment/Plan: On carvedilol 6.25mg po bid On Eliquis 5mg po bid (4) CHF (congestive heart failure) Assessment/Plan: On carvedilol and spironolactone. (5) GERD (gastroesophageal reflux disease) Assessment/Plan: Protonix 40 mg p.o. QDAC ordered (7) Depression Assessment/Plan: On duloxetine 30mg po daily (8) Hypertension Assessment/Plan: On spironolactone, carvedilol and chlorthalidone. - Current Meds Current Meds: Current Medications Generic Name Dose Route Start Last Admin Trade Name Freq PRN Reason Stop Dose Admin Cyclobenzaprine HCl 10 mg 02/20/21 14:11 02/20/21 14:14 Cyclobenzaprine 10 Mg Tablet PO 10 mg TID PRN Administration Spasms Ampicillin Sodium/Sulbactam 100 mls @ 200 mls/hr 02/20/21 02:00 02/20/21 14:21 Sodium 3 gm/ Sodium Chloride IV Infused Q6H VINOD Infusion Sodium Chloride 1,000 mls @ 60 mls/hr 02/20/21 11:53 02/20/21 12:19 Normal Saline 0.9% IV 60 mls/hr .[id number] VINOD Administration Morphine Sulfate 2 mg 02/19/21 20:25 02/20/21 17:54 Morphine 2 Mg/Ml Carpuject IVP 2 mg Q2HR PRN Administration Pain 8 to 10 Morphine Sulfate 30 mg 02/20/21 12:30 02/20/21 12:19 Morphine Sulfate Er 30 Mg Tablet PO 30 mg BID VINOD Administration Nystatin 1 applic 02/20/21 02:00 02/20/21 08:17 Nystatin Powder 15 Gm TOP Not Given BID [facility] Oxycodone HCl 5 mg 02/19/21 20:25 02/20/21 14:14 Oxycodone 5 Mg Tablet PO 5 mg Q4HR PRN Administration Pain 5 to 7 Sodium Chloride 10 ml 02/20/21 01:00 02/20/21 16:45 Sodium Chloride Flush 0.9% 10 Ml Syringe IVP Not Given 0100,0900,1700 [facility] - Lab Result Fish Bone Diagrams: 02/20/21 07:05 02/20/21 07:05 - Additional Planning My Orders: My Active Orders 02/19/21 20:25 Activity Orders [RC] Q2HR IO [RC] IOSHIFT Initiate Bowel Care Protocol [RC] .protocol Initiate Line Care Protocol [RC] QSHIFT Initiate Personal Care Protoco [RC] .protocol Telemetry- [RC] Q4HR Vital Signs [RC] Q4H Acetaminophen [Tylenol] 650 mg PO Q6HR PRN Morphine Inj (Carpuject) [Morphine (Carpuject)] 2 mg IVP Q2HR PRN Ondansetron Inj [Zofran Inj] 4 mg IVP Q6HR PRN Sodium Chloride Flush 0.9% [Normal Saline Flush 0.9%] 10 ml IVP PRN PRN oxyCODONE [Roxicodone] 5 mg PO Q4HR PRN Code Status [OTHERS] Routine Condition of Patient [OTHERS] Routine DVT Prophylaxis [OTHERS] Routine 02/20/21 01:00 Sodium Chloride Flush 0.9% [Normal Saline Flush 0.9%] 10 ml IVP 0100,0900,1700 02/20/21 02:00 Ampicillin/Sulbactam [Unasyn] 3 gm Sodium Chloride 0.9% Minibag [Normal Saline 0.9% Minibag] 100 ml IV Q6H Nystatin [Nystop] 1 applic TOP BID 02/21/21 05:00 BMP - BASIC METABOLIC PANEL [CHEM] DAILYLAB CBC - COMP BLD CT W/AUTO DIFF [HEME] DAILYLAB 02/22/21 05:00 BMP - BASIC METABOLIC PANEL [CHEM] DAILYLAB CBC - COMP BLD CT W/AUTO DIFF [HEME] DAILYLAB 02/23/21 05:00 BMP - BASIC METABOLIC PANEL [CHEM] DAILYLAB CBC - COMP BLD CT W/AUTO DIFF [HEME] DAILYLAB 02/24/21 05:00 BMP - BASIC METABOLIC PANEL [CHEM] DAILYLAB CBC - COMP BLD CT W/AUTO DIFF [HEME] DAILYLAB Subjective - Subjective Patient Reports: Other (Patient complains of back pain. She is drowsy but readily arouses to verbal stimuli. The redness in her right lower extremity appears significantly improved.) Objective Vital Signs: Vital Signs - 24 hr 02/19/21 02/19/21 02/20/21 20:14 21:47 01:00 Temperature 37.6 C 36.8 C Heart Rate 60 Heart Rate [ 60 60 Monitoring electrodes] Respiratory 16 18 20 Rate Blood Pressure 125/70 Blood Pressure 148/59 H 119/61 [Right Brachial artery] O2 Saturation 93 94 95 02/20/21 02/20/21 02/20/21 05:53 07:51 11:32 Temperature 36.5 C 37.4 C 37.2 C Heart Rate Heart Rate [ 60 60 60 Monitoring electrodes] Respiratory 21 18 18 Rate Blood Pressure Blood Pressure 118/54 L 113/54 L 129/62 [Right Brachial artery] O2 Saturation 93 95 96 02/20/21 15:56 Temperature 37.5 C Heart Rate Heart Rate [ 65 Monitoring electrodes] Respiratory 18 Rate Blood Pressure Blood Pressure 125/59 L [Right Brachial artery] O2 Saturation 95 Oxygen O2 Source Room air I&O (Last 24 Hrs): Intake and Output Totals x24h 02/18/21 02/19/21 02/20/21 23:59 23:59 23:59 Intake Total 1600 1698 Output Total 0 650 Balance 1600 1048 General: Alert, Moderate distress HEENT: PERRLA, EOMI Neck: Supple, No JVD Neuro: Non Focal Cardiovascular: Other (paced rhythm) Respiratory: Chest non-tender, No respiratory distress, Breath sounds nml Abdomen: Normal bowel sounds, Soft, Other Extremities: No clubbing, No cyanosis Comments/Notes: redness in the right lower extremity (improved). - Results Results: Laboratory Results WBC 13.5 x10^3/uL (4.8-10.8) H 02/20/21 07:05 RBC 4.50 10^6/uL (4.20-5.40) 02/20/21 07:05 Hgb 14.8 g/dL (12.0-16.0) 02/20/21 07:05 Hct 45.0 % (37.0-47.0) 02/20/21 07:05 MCV 100.0 fL (81.0-99.0) H 02/20/21 07:05 MCH 32.9 pg (27.0-31.0) H 02/20/21 07:05 MCHC 32.9 g/dL (32.0-36.0) 02/20/21 07:05 RDW 14.5 % (12.0-15.0) 02/20/21 07:05 Plt Count 144 10^3/uL (130-450) 02/20/21 07:05 MPV 10.7 fL (7.9-10.8) 02/20/21 07:05 Neut # (Auto) 11.8 10^3/uL (1.5-6.6) H 02/20/21 07:05 Lymph # (Auto) 0.6 10^3/uL (1.5-3.5) L 02/20/21 07:05 [place] # (Auto) 0.9 10^3/uL (0.0-1.0) 02/20/21 07:05 Eos # (Auto) 0.1 10^3/uL (0.0-0.7) 02/20/21 07:05 Baso # (Auto) 0.1 10^3/uL (0.0-0.1) 02/20/21 07:05 Absolute Nucleated RBC 0.00 x10^3/uL 02/20/21 07:05 Nucleated RBC % 0.0 /100WBC 02/20/21 07:05 Sodium 138 mmol/L (135-145) 02/20/21 07:05 Potassium 4.1 mmol/L (3.5-5.0) 02/20/21 07:05 Chloride 102 mmol/L (101-111) 02/20/21 07:05 Carbon Dioxide 24 mmol/L (21-32) 02/20/21 07:05 Anion Gap 12.0 (6-13) 02/20/21 07:05 BUN 24 mg/dL (6-20) H 02/20/21 07:05 Creatinine 1.1 mg/dL (0.4-1.0) H 02/20/21 07:05 Estimated GFR (MDRD) 48 (>89) L 02/20/21 07:05 Glucose 133 mg/dL (70-100) H 02/20/21 07:05 Lactic Acid 1.4 mmol/L (0.5-2.2) 02/20/21 04:03 Calcium 8.9 mg/dL (8.5-10.3) 02/20/21 07:05 Nasal Adenovirus (PCR) NOT DETECTED 02/19/21 20:21 Nasal B. parapertussis DNA (PCR) NOT DETECTED 02/19/21 20:21 Nasal Coronavir 229E PCR NOT DETECTED 02/19/21 20:21 Nasal Coronavir HKU1 PCR NOT DETECTED 02/19/21 20:21 Nasal Coronavir NL63 PCR NOT DETECTED 02/19/21 20:21 Nasal Coronavir OC43 PCR NOT DETECTED 02/19/21 20:21 Nasal Enterovir/Rhinovir PCR NOT DETECTED 02/19/21 20:21 Nasal Influenza B PCR NOT DETECTED 02/19/21 20:21 Nasal Influenza A PCR NOT DETECTED 02/19/21 20:21 Nasal Parainfluen 1 PCR NOT DETECTED 02/19/21 20:21 Nasal Parainfluen 2 PCR NOT DETECTED 02/19/21 20:21 Nasal Parainfluen 3 PCR NOT DETECTED 02/19/21 20:21 Nasal Parainfluen 4 PCR NOT DETECTED 02/19/21 20:21 Nasal RSV (PCR) NOT DETECTED 02/19/21 20:21 Nasal B.pertussis DNA PCR NOT DETECTED 02/19/21 20:21 Nasal C.pneumoniae (PCR) NOT DETECTED 02/19/21 20:21 Gurwinder Human Metapneumo PCR NOT DETECTED 02/19/21 20:21 Nasal M.pneumoniae (PCR) NOT DETECTED 02/19/21 20:21 Nasal SARS-CoV-2 (PCR) NOT DETECTED 02/19/21 20:21 Sepsis Event Note (H) - Evaluation Current Stage of Sepsis: Sepsis Possible source of Sepsis: positive: Skin/soft tissue - Sepsis Criteria Sepsis Criteria: WBC count greater than 12,000 or less than 4000, Metabolic: lactate > 2 mmol/L ABX Reporting Has patient been on IV antibiotics over the past 48 hours?: Yes
[2021-02-20] MEDS ORDERED: VANCOMYCIN INJ 1.25 GM in SODIUM CHLORIDE 0.9% 250 ML IV SCH (21:00)
[2021-02-20] MEDS: APIXABAN 5 MG TABLET PO SCH (21:48)
[2021-02-20] MEDS: carvediloL 3.125 MG TABLET PO SCH (21:48)
[2021-02-20] MEDS: PREGABALIN 25 MG CAPSULE PO SCH (21:48)
[2021-02-21] MEDS: SODIUM CHLORIDE FLUSH 0.9% 10 ML SYRINGE IVP SCH ×3 (01:02→16:44)
[2021-02-21] MEDS: AMPICILLIN/SULBACTAM 3 GM in SODIUM CHLORIDE 0.9% MINIBAG 100 ML IV SCH ×4 (02:15→20:06)
[2021-02-21] MEDS: SODIUM CHLORIDE 0.9% 1,000 ML IV SCH (05:05)
[2021-02-21 05:45] LABS: BASOPHILS % (AUTO) 0.3 %; EOSINOPHILS # (AUTO) 0.2 10^3/uL (0.0-0.7); EOSINOPHILS % (AUTO) 1.8 %; HCT - HEMATOCRIT 43.3 % (37.0-47.0); HGB - HEMOGLOBIN 13.7 g/dL (12.0-16.0); LYMPHOCYTES # (AUTO) 0.8 10^3/uL (1.5-3.5); LYMPHOCYTES % (AUTO) 6.1 %; MEAN CORPUSCULAR HEMOGLOBIN 32.2 pg (27.0-31.0); MEAN CORPUSCULAR HGB CONC 31.6 g/dL (32.0-36.0); MEAN CORPUSCULAR VOLUME 101.9 fL (81.0-99.0); MEAN PLATELET VOLUME 11.1 fL (7.9-10.8); MONOCYTES # (AUTO) 0.9 10^3/uL (0.0-1.0); MONOCYTES % (AUTO) 7.5 %; NEUTROPHILS # (AUTO) 10.3 10^3/uL (1.5-6.6); NEUTROPHILS % (AUTO) 83.6 %; PLT - PLATELET COUNT 147 10^3/uL (130-450); RED BLOOD COUNT 4.25 10^6/uL (4.20-5.40); RED CELL DISTRIBUTION WIDTH 14.8 % (12.0-15.0); WHITE BLOOD COUNT 12.3 x10^3/uL (4.8-10.8)
[2021-02-21 05:47] LABS: SLIDE REVIEW? Indicated
[2021-02-21 05:50] LABS: CALCIUM 8.3 mg/dL (8.5-10.3); POTASSIUM 4.4 mmol/L (3.5-5.0)
[2021-02-21] MEDS: PANTOPRAZOLE 40 MG TABLET PO SCH (06:14)
[2021-02-21] MEDS: SPIRONOLACTONE 25 MG TABLET PO SCH (07:51)
[2021-02-21] MEDS: carvediloL 3.125 MG TABLET PO SCH ×2 (07:52→20:16)
[2021-02-21] MEDS: PREGABALIN 25 MG CAPSULE PO SCH ×2 (07:52→20:17)
[2021-02-21] MEDS: APIXABAN 5 MG TABLET PO SCH ×2 (07:52→20:17)
[2021-02-21] MEDS: MORPHINE SULFATE ER 30 MG TABLET PO SCH ×2 (07:52→20:16)
[2021-02-21] MEDS: polyethylene glycoL 3350 17 GM PACKET PO SCH (09:26)
[2021-02-21] MEDS: CHOLECALCIFEROL 25 MCG TABLET PO SCH (09:26)
[2021-02-21] MEDS: NYSTATIN POWDER 15 GM TOP SCH ×2 (09:27→20:17)
[2021-02-21] MEDS: DULoxetine 30 MG CAPSULE PO SCH (09:27)
[2021-02-21] MEDS: CYCLOBENZAPRINE 10 MG TABLET PO PRN ×2 (09:27→17:34)
[2021-02-21 10:22] LABS: WBC MORPHOLOGY (MULTIPLE) 3+AGRANULAR/HYPOGRAN (NORMAL)
[2021-02-21 10:24] LABS: DIFFERENTIAL COMMENT MANUAL=AUTO DIFF
[2021-02-21] MEDS: ACETAMINOPHEN 325 MG TABLET PO PRN (17:34)
[2021-02-21] MEDS: oxyCODONE 5 MG TABLET PO PRN (17:56)
--- NOTE | 2021-02-21 19:39 | PROVIDER PROGRESS NOTE ---
Assessment/Plan - Problem List (1) Sepsis Assessment/Plan: Wound culture grew beta-hemolytic strep group G. Blood culture also grew Streptococcus species Vancomycin was discontinued. Patient was continued on Unasyn. There is significant improvement in the patient's lower extremity erythema White blood cell count improved from 13 down to 12. The patient remains afebrile. (2) Cellulitis of right lower extremity Assessment/Plan: Wound culture grew beta-hemolytic strep group G. Blood culture also grew Streptococcus species Vancomycin was discontinued. Patient was continued on Unasyn. There is significant improvement in the patient's lower extremity erythema White blood cell count improved from 13 down to 12. The patient remains afebrile. (3) Atrial fibrillation Assessment/Plan: On carvedilol 6.25mg po bid On Eliquis 5mg po bid (4) CHF (congestive heart failure) Assessment/Plan: On carvedilol and spironolactone. (5) GERD (gastroesophageal reflux disease) Assessment/Plan: Protonix 40 mg p.o. QDAC ordered (6) Chronic back pain Assessment/Plan: Pain management with morphine and oxycodone as needed. However patient's pain persist to the point of limiting her ability to eat CT of the lumbar spine to assess for possible fracture in the morning. (7) Depression Assessment/Plan: On duloxetine 30mg po daily (8) Hypertension Assessment/Plan: On spironolactone, carvedilol and chlorthalidone. - Current Meds Current Meds: Current Medications Generic Name Dose Route Start Last Admin Trade Name Freq PRN Reason Stop Dose Admin Acetaminophen 650 mg 02/19/21 20:25 02/21/21 17:34 Acetaminophen 325 Mg Tablet PO 650 mg Q6HR PRN Administration Pain 1 to 4 Apixaban 5 mg 02/20/21 21:00 02/21/21 07:52 Apixaban 5 Mg Tablet PO 5 mg BID VINOD Administration Carvedilol 6.25 mg 02/20/21 21:00 02/21/21 07:52 Carvedilol 3.125 Mg Tablet PO 6.25 mg BID VINOD Administration Cholecalciferol 50 mcg 02/21/21 09:00 02/21/21 09:26 Cholecalciferol 25 Mcg Tablet PO 50 mcg DAILY VINOD Administration Cyclobenzaprine HCl 10 mg 02/20/21 14:11 02/21/21 17:34 Cyclobenzaprine 10 Mg Tablet PO 10 mg TID PRN Administration Spasms Duloxetine HCl 30 mg 02/21/21 09:00 02/21/21 09:27 Duloxetine 30 Mg Capsule PO 30 mg DAILY VINOD Administration Ampicillin Sodium/Sulbactam 100 mls @ 200 mls/hr 02/20/21 02:00 02/21/21 14:25 Sodium 3 gm/ Sodium Chloride IV Infused Q6H VINOD Infusion Sodium Chloride 1,000 mls @ 60 mls/hr 02/20/21 11:53 02/21/21 05:05 Normal Saline 0.9% IV 60 mls/hr .[id number] VINOD Administration Morphine Sulfate 2 mg 02/19/21 20:25 02/20/21 17:54 Morphine 2 Mg/Ml Carpuject IVP 2 mg Q2HR PRN Administration Pain 8 to 10 Morphine Sulfate 30 mg 02/20/21 12:30 02/21/21 07:52 Morphine Sulfate Er 30 Mg Tablet PO 30 mg BID VINOD Administration Nystatin 1 applic 02/20/21 02:00 02/21/21 09:27 Nystatin Powder 15 Gm TOP 1 applic BID VINOD Administration Oxycodone HCl 5 mg 02/19/21 20:25 02/21/21 17:56 Oxycodone 5 Mg Tablet PO 5 mg Q4HR PRN Administration Pain 5 to 7 Pantoprazole Sodium 40 mg 02/21/21 07:00 02/21/21 06:14 Pantoprazole 40 Mg Tablet PO 40 mg QDAC VINOD Administration Polyethylene Glycol 17 gm 02/21/21 09:00 02/21/21 09:26 Polyethylene Glycol 3350 17 Gm Packet PO 17 gm DAILY VINOD Administration Pregabalin 75 mg 02/20/21 21:00 02/21/21 07:52 Pregabalin 25 Mg Capsule PO 75 mg BID VINOD Administration Sodium Chloride 10 ml 02/20/21 01:00 02/21/21 16:44 Sodium Chloride Flush 0.9% 10 Ml Syringe IVP Not Given 0100,0900,1700 VINOD Spironolactone 50 mg 02/21/21 08:00 02/21/21 07:51 Spironolactone 25 Mg Tablet PO 50 mg QDBREAKFAST VINOD Administration - Lab Result Fish Bone Diagrams: 02/21/21 05:20 02/21/21 05:20 - Additional Planning My Orders: My Active Orders 02/21/21 09:00 polyethylene glycoL 3350 [Miralax] 17 gm PO DAILY 02/22/21 05:00 BMP - BASIC METABOLIC PANEL [CHEM] DAILYLAB CBC - COMP BLD CT W/AUTO DIFF [HEME] DAILYLAB 02/23/21 05:00 BMP - BASIC METABOLIC PANEL [CHEM] DAILYLAB CBC - COMP BLD CT W/AUTO DIFF [HEME] DAILYLAB 02/24/21 05:00 BMP - BASIC METABOLIC PANEL [CHEM] DAILYLAB CBC - COMP BLD CT W/AUTO DIFF [HEME] DAILYLAB Subjective - Subjective Patient Reports: Other (Patient was sleeping soundly at the time of exam but readily arousable to tactile and verbal stimuli. She complains of back pain which she rates 4 out of 10. The redness in her right lower extremity still appreciable but appears improved.) Objective Vital Signs: Vital Signs - 24 hr 02/20/21 02/21/21 02/21/21 20:00 00:00 05:25 Temperature 36.9 C 36.3 C L 36.5 C Heart Rate [ 60 60 61 Monitoring electrodes] Respiratory 18 18 20 Rate Blood Pressure 149/75 H 114/53 L 130/60 [Right Brachial artery] O2 Saturation 95 93 95 02/21/21 02/21/21 02/21/21 06:50 13:00 15:46 Temperature 36.6 C 371 C H 36.8 C Heart Rate [ 64 60 60 Monitoring electrodes] Respiratory 16 16 20 Rate Blood Pressure 145/78 H 134/74 H 130/63 [Right Brachial artery] O2 Saturation 96 94 94 Oxygen O2 Source Room air I&O (Last 24 Hrs): Intake and Output Totals x24h 02/19/21 02/20/21 02/21/21 23:59 23:59 23:59 Intake Total 1600 2298 2080 Output Total 0 850 100 Balance 1600 1448 1980 General: Alert, Oriented x3, Mild distress, Moderate distress HEENT: PERRLA, EOMI Neuro: Non Focal Cardiovascular: Other (paced) Respiratory: Chest non-tender, No respiratory distress, Breath sounds nml Abdomen: Normal bowel sounds, Soft Extremities: No clubbing, No cyanosis Comments/Notes: redness in the right lower extremity (improved). - Results Results: Laboratory Results WBC 12.3 x10^3/uL (4.8-10.8) H 02/21/21 05:20 RBC 4.25 10^6/uL (4.20-5.40) 02/21/21 05:20 Hgb 13.7 g/dL (12.0-16.0) 02/21/21 05:20 Hct 43.3 % (37.0-47.0) 02/21/21 05:20 MCV 101.9 fL (81.0-99.0) H 02/21/21 05:20 MCH 32.2 pg (27.0-31.0) H 02/21/21 05:20 MCHC 31.6 g/dL (32.0-36.0) L 02/21/21 05:20 RDW 14.8 % (12.0-15.0) 02/21/21 05:20 Plt Count 147 10^3/uL (130-450) 02/21/21 05:20 MPV 11.1 fL (7.9-10.8) H 02/21/21 05:20 Neut # (Auto) 10.3 10^3/uL (1.5-6.6) H 02/21/21 05:20 Lymph # (Auto) 0.8 10^3/uL (1.5-3.5) L 02/21/21 05:20 [place] # (Auto) 0.9 10^3/uL (0.0-1.0) 02/21/21 05:20 Eos # (Auto) 0.2 10^3/uL (0.0-0.7) 02/21/21 05:20 Baso # (Auto) 0.0 10^3/uL (0.0-0.1) 02/21/21 05:20 Absolute Nucleated RBC 0.00 x10^3/uL 02/21/21 05:20 Band Neuts % (Manual) Not Reportable 02/21/21 05:20 Abnorm Lymph % (Manual) Not Reportable 02/21/21 05:20 Nucleated RBC % 0.0 /100WBC 02/21/21 05:20 Neutrophils # (Manual) Not Reportable 02/21/21 05:20 Lymphocytes # (Manual) Not Reportable 02/21/21 05:20 Monocytes # (Manual) Not Reportable 02/21/21 05:20 Eosinophils # (Manual) Not Reportable 02/21/21 05:20 Basophils # (Manual) Not Reportable 02/21/21 05:20 Differential Comment MANUAL=AUTO DIFF 02/21/21 05:20 Manual Slide Review Indicated 02/21/21 05:20 WBC Morphology 3+AGRANULAR/HYPOGRAN (NORMAL) 02/21/21 05:20 Sodium 136 mmol/L (135-145) 02/21/21 05:20 Potassium 4.4 mmol/L (3.5-5.0) 02/21/21 05:20 Chloride 99 mmol/L (101-111) L 02/21/21 05:20 Carbon Dioxide 28 mmol/L (21-32) 02/21/21 05:20 Anion Gap 9.0 (6-13) 02/21/21 05:20 BUN 20 mg/dL (6-20) 02/21/21 05:20 Creatinine 1.0 mg/dL (0.4-1.0) 02/21/21 05:20 Estimated GFR (MDRD) 53 (>89) L 02/21/21 05:20 Glucose 114 mg/dL (70-100) H 02/21/21 05:20 Lactic Acid 1.4 mmol/L (0.5-2.2) 02/20/21 04:03 Calcium 8.3 mg/dL (8.5-10.3) L 02/21/21 05:20 Magnesium 1.7 mg/dL (1.7-2.8) 02/21/21 05:20 Nasal Adenovirus (PCR) NOT DETECTED 02/19/21 20:21 Nasal B. parapertussis DNA (PCR) NOT DETECTED 02/19/21 20:21 Nasal Coronavir 229E PCR NOT DETECTED 02/19/21 20:21 Nasal Coronavir HKU1 PCR NOT DETECTED 02/19/21 20:21 Nasal Coronavir NL63 PCR NOT DETECTED 02/19/21 20:21 Nasal Coronavir OC43 PCR NOT DETECTED 02/19/21 20:21 Nasal Enterovir/Rhinovir PCR NOT DETECTED 02/19/21 20:21 Nasal Influenza B PCR NOT DETECTED 02/19/21 20:21 Nasal Influenza A PCR NOT DETECTED 02/19/21 20:21 Nasal Parainfluen 1 PCR NOT DETECTED 02/19/21 20:21 Nasal Parainfluen 2 PCR NOT DETECTED 02/19/21 20:21 Nasal Parainfluen 3 PCR NOT DETECTED 02/19/21 20:21 Nasal Parainfluen 4 PCR NOT DETECTED 02/19/21 20:21 Nasal RSV (PCR) NOT DETECTED 02/19/21 20:21 Nasal B.pertussis DNA PCR NOT DETECTED 02/19/21 20:21 Nasal C.pneumoniae (PCR) NOT DETECTED 02/19/21 20:21 Gurwinder Human Metapneumo PCR NOT DETECTED 02/19/21 20:21 Nasal M.pneumoniae (PCR) NOT DETECTED 02/19/21 20:21 Nasal SARS-CoV-2 (PCR) NOT DETECTED 02/19/21 20:21 Sepsis Event Note (H) - Evaluation Current Stage of Sepsis: Sepsis Possible source of Sepsis: positive: Skin/soft tissue - Sepsis Criteria Sepsis Criteria: WBC count greater than 12,000 or less than 4000, Metabolic: lactate > 2 mmol/L ABX Reporting Has patient been on IV antibiotics over the past 48 hours?: Yes
[2021-02-22] MEDS: oxyCODONE 5 MG TABLET PO PRN ×2 (01:44→06:34)
[2021-02-22] MEDS: SODIUM CHLORIDE FLUSH 0.9% 10 ML SYRINGE IVP SCH ×3 (01:44→16:59)
[2021-02-22] MEDS: AMPICILLIN/SULBACTAM 3 GM in SODIUM CHLORIDE 0.9% MINIBAG 100 ML IV SCH ×4 (01:52→20:17)
[2021-02-22 05:10] LABS: BASOPHILS % (AUTO) 0.3 %; EOSINOPHILS # (AUTO) 0.1 10^3/uL (0.0-0.7); EOSINOPHILS % (AUTO) 0.6 %; HCT - HEMATOCRIT 43.6 % (37.0-47.0); HGB - HEMOGLOBIN 13.9 g/dL (12.0-16.0); LYMPHOCYTES # (AUTO) 0.5 10^3/uL (1.5-3.5); LYMPHOCYTES % (AUTO) 4.3 %; MEAN CORPUSCULAR HEMOGLOBIN 32.3 pg (27.0-31.0); MEAN CORPUSCULAR HGB CONC 31.9 g/dL (32.0-36.0); MEAN CORPUSCULAR VOLUME 101.2 fL (81.0-99.0); MEAN PLATELET VOLUME 10.6 fL (7.9-10.8); MONOCYTES # (AUTO) 0.9 10^3/uL (0.0-1.0); MONOCYTES % (AUTO) 7.8 %; NEUTROPHILS # (AUTO) 10.1 10^3/uL (1.5-6.6); NEUTROPHILS % (AUTO) 86.4 %; PLT - PLATELET COUNT 144 10^3/uL (130-450); RED BLOOD COUNT 4.31 10^6/uL (4.20-5.40); RED CELL DISTRIBUTION WIDTH 14.5 % (12.0-15.0); WHITE BLOOD COUNT 11.7 x10^3/uL (4.8-10.8)
[2021-02-22 05:20] LABS: CALCIUM 8.5 mg/dL (8.5-10.3); CREATININE 0.9 mg/dL (0.4-1.0); POTASSIUM 4.1 mmol/L (3.5-5.0)
[2021-02-22] MEDS: PANTOPRAZOLE 40 MG TABLET PO SCH (06:35)
[2021-02-22] MEDS: PREGABALIN 25 MG CAPSULE PO SCH ×2 (09:43→20:17)
[2021-02-22] MEDS: CHOLECALCIFEROL 25 MCG TABLET PO SCH (09:43)
[2021-02-22] MEDS: DOCUSATE SODIUM 250 MG CAPSULE PO SCH ×2 (09:43→09:51)
[2021-02-22] MEDS: ACETAMINOPHEN 325 MG TABLET PO PRN (09:44)
[2021-02-22] MEDS: MORPHINE SULFATE ER 30 MG TABLET PO SCH ×2 (09:44→20:17)
[2021-02-22] MEDS: APIXABAN 5 MG TABLET PO SCH ×2 (09:44→20:17)
[2021-02-22] MEDS: SPIRONOLACTONE 25 MG TABLET PO SCH (09:44)
[2021-02-22] MEDS: DULoxetine 30 MG CAPSULE PO SCH (09:45)
[2021-02-22] MEDS: polyethylene glycoL 3350 17 GM PACKET PO SCH (09:45)
[2021-02-22] MEDS: NYSTATIN POWDER 15 GM TOP SCH ×2 (09:46→20:17)
[2021-02-22] MEDS: carvediloL 3.125 MG TABLET PO SCH ×2 (09:46→20:17)
--- NOTE | 2021-02-22 10:35 | CT Report ---
PROCEDURE: LUMBAR SPINE WO INDICATIONS: Low back pain TECHNIQUE: Noncontrast 3 mm thick sections acquired from the T12 level to the sacrum. Sagittal and coronal refo rmats were constructed. For radiation dose reduction, the following was used: automated exposure co ntrol, adjustment of mA and/or kV according to patient size. COMPARISON: 07/28/2019 CT abdomen and pelvis. FINDINGS: There are postsurgical changes of L2-L4 posterior fixation by means of bilateral rods and screws with interbody device at L3-L4. The hardware is intact with no abnormal lucency surrounding the hardware to indicate loosening. Vertebral body heights maintained. There is no fracture identified. Retrolisth esis of L5 on S1 measuring approximately 2 mm. Anterolisthesis of L3 on L4 measuring approximately 5 mm. Otherwise normal alignment. Disc height loss from L1-L2 through L5-S1 to varying degrees with ass ociated degenerative endplate change. Sclerotic endplate change with endplate irregularity and dispute specialist ior osteophytic ridging of the endplates at L1-L2 is similar to 07/28/2019 exam. There is mild foramin al narrowing at every level in the lumbar spine with without CT evidence of focal nerve root impingem ent. There are varying degrees of spinal canal stenosis due to diffuse disc bulges and posterior oste ophytic ridging of the endplates, which would be better evaluated with MRI. Prevertebral and paraspin ous soft tissues are within normal limits. IMPRESSION: No acute fracture. Postsurgical changes of L2-L4 posterior fixation without acute complicating hardware feature. Varying degrees of spinal canal stenosis and neural foraminal stenosis throughout the lumbar spine. N o gross CT evidence of focal nerve root impingement, although MRI could be considered for more sensit nannette assessment. Reviewed by: Vicente Grover MD on 02/22/2021 10:34 AM PDT Approved by: Vicente Grover MD on 02/22/2021 10:34 AM PDT Station ID: [id number]
[2021-02-22] MEDS: SODIUM CHLORIDE FLUSH 0.9% 10 ML SYRINGE IVP PRN ×2 (12:01→13:46)
[2021-02-22] MEDS: CYCLOBENZAPRINE 10 MG TABLET PO PRN (16:58)
--- NOTE | 2021-02-22 19:19 | PROVIDER PROGRESS NOTE ---
Subjective - Prog Note Date Prog Note Date: 02/22/21 - Subjective Subjective: She feels like her right lower extremity is improving. She still complains of lower back pain. She believes it is a little worse than usual as she has been getting out of bed and walking. She denies any deficits. Current Medications - Current Medications Current Medications: Active Medications Acetaminophen (Acetaminophen 325 Mg Tablet) 650 mg PO Q6HR PRN PRN Reason: Pain 1 to 4 Last Admin: 02/22/21 09:44 Dose: 650 mg Documented by: Apixaban (Apixaban 5 Mg Tablet) 5 mg PO BID [facility] Last Admin: 02/22/21 09:44 Dose: 5 mg Documented by: Carvedilol (Carvedilol 3.125 Mg Tablet) 6.25 mg PO BID [facility] Last Admin: 02/22/21 09:46 Dose: 6.25 mg Documented by: Cholecalciferol (Cholecalciferol 25 Mcg Tablet) 50 mcg PO DAILY [facility] Last Admin: 02/22/21 09:43 Dose: 50 mcg Documented by: Cyclobenzaprine HCl (Cyclobenzaprine 10 Mg Tablet) 10 mg PO TID PRN PRN Reason: Spasms Last Admin: 02/22/21 16:58 Dose: 10 mg Documented by: Docusate Sodium (Docusate Sodium 250 Mg Capsule) 250 - 500 mg PO DAILY [facility] Last Admin: 02/22/21 09:51 Dose: Not Given Documented by: Duloxetine HCl (Duloxetine 30 Mg Capsule) 30 mg PO DAILY [facility] Last Admin: 02/22/21 09:45 Dose: 30 mg Documented by: Ampicillin Sodium/Sulbactam (Sodium 3 gm/ Sodium Chloride) 100 mls @ 200 mls/hr IV Q6H [facility] Last Infusion: 02/22/21 14:14 Dose: Infused Documented by: Morphine Sulfate (Morphine 2 Mg/Ml Carpuject) 2 mg IVP Q2HR PRN PRN Reason: Pain 8 to 10 Last Admin: 02/20/21 17:54 Dose: 2 mg Documented by: Morphine Sulfate (Morphine Sulfate Er 30 Mg Tablet) 30 mg PO BID [facility] Last Admin: 02/22/21 09:44 Dose: 30 mg Documented by: Nystatin (Nystatin Powder 15 Gm) 1 applic TOP BID [facility] Last Admin: 02/22/21 09:46 Dose: 1 applic Documented by: Ondansetron HCl (Ondansetron 4 Mg/2 Ml Vial) 4 mg IVP Q6HR PRN PRN Reason: Nausea / Vomiting Last Admin: 02/22/21 12:01 Dose: 4 mg Documented by: Oxycodone HCl (Oxycodone 5 Mg Tablet) 5 mg PO Q4HR PRN PRN Reason: Pain 5 to 7 Last Admin: 02/22/21 06:34 Dose: 5 mg Documented by: Pantoprazole Sodium (Pantoprazole 40 Mg Tablet) 40 mg PO QDAC [facility] Last Admin: 02/22/21 06:35 Dose: 40 mg Documented by: Polyethylene Glycol (Polyethylene Glycol 3350 17 Gm Packet) 17 gm PO DAILY [facility] Last Admin: 02/22/21 09:45 Dose: 17 gm Documented by: Pregabalin (Pregabalin 25 Mg Capsule) 75 mg PO BID [facility] Last Admin: 02/22/21 09:43 Dose: 75 mg Documented by: Sodium Chloride (Sodium Chloride Flush 0.9% 10 Ml Syringe) 10 ml IVP PRN PRN PRN Reason: NEEDED PER PROVIDER ORDERS Last Admin: 02/22/21 13:46 Dose: 10 ml Documented by: Sodium Chloride (Sodium Chloride Flush 0.9% 10 Ml Syringe) 10 ml IVP 0100,0900,1700 [facility] Last Admin: 02/22/21 16:59 Dose: 10 ml Documented by: Spironolactone (Spironolactone 25 Mg Tablet) 50 mg PO QDBREAKFAST [facility] Last Admin: 02/22/21 09:44 Dose: 50 mg Documented by: Acetaminophen [Pain Relief] 1,000 mg PO BID 08/26/13 Cholecalciferol (Vitamin D3) [Vitamin D] 2,000 unit PO DAILY 08/26/13 Morphine Sulfate [Morphine Sulfate ER] 30 mg PO BID 08/26/13 carvediloL [Coreg] 6.25 mg PO BID 08/26/13 DULoxetine [Cymbalta] 30 mg PO DAILY 03/10/19 Pregabalin [Lyrica] 75 mg PO BID 03/10/19 Spironolactone 50 mg PO QDBREAKFAST 03/10/19 Apixaban [Eliquis] 5 mg BID 02/19/21 Chlorthalidone 25 mg PO DAILY 02/19/21 Omeprazole [PriLOSEC] 20 mg PO DAILY 02/19/21 Objective - Vital Signs/Intake & Output Reviewed Vital Signs: Yes Vital Signs: Vital Signs x48h Temp Pulse Resp BP BP Pulse Ox 02/22/21 16:21 36.7 C 63 18 121/58 L 92 02/22/21 13:00 36.4 C L 60 18 115/58 L 93 Intake & Output: Intake & Output 02/19/21 02/20/21 02/21/21 02/22/21 23:59 23:59 23:59 23:59 Intake Total 1600 2298 3086 1240 Output Total 0 850 100 800 Balance 1600 1448 2986 440 - Objective General Appearance: positive: No acute distress, Alert Eyes Bilateral: positive: Normal inspection, Conjunctivae nml ENT: positive: ENT inspection nml Neck: positive: Nml inspection Respiratory: positive: No respiratory distress. negative: Wheezes, Rales Cardiovascular: positive: Regular rate & rhythm. negative: Systolic murmur Abdomen: positive: Non-tender, No distention. negative: Tenderness Extremities: positive: Pedal edema (+1 edema in right lower extremity.), Other (There is erythema in the right lower extremity inferior to the knee to the ankle. It is most prominent from the ankle to mid elias. There is a 1 cm laceration over the lateral aspect of the mid elias with serosanguineous drainage.) Neurologic/Psychiatric: positive: Motor nml, Sensation nml. negative: Disoriented to person, Disoriented to place - Lab Results Fish Bones: 02/22/21 05:05 02/22/21 05:05 Other Labs: Lab Results x24hrs 02/22/21 02/22/21 Range/Units 05:05 05:05 WBC 11.7 H (4.8-10.8) x10^3/uL RBC 4.31 (4.20-5.40) 10^6/uL Hgb 13.9 (12.0-16.0) g/dL Hct 43.6 (37.0-47.0) % MCV 101.2 H (81.0-99.0) fL MCH 32.3 H (27.0-31.0) pg MCHC 31.9 L (32.0-36.0) g/dL RDW 14.5 (12.0-15.0) % Plt Count 144 (130-450) 10^3/uL MPV 10.6 (7.9-10.8) fL Neut # (Auto) 10.1 H (1.5-6.6) 10^3/uL Lymph # (Auto) 0.5 L (1.5-3.5) 10^3/uL [place] # (Auto) 0.9 (0.0-1.0) 10^3/uL Eos # (Auto) 0.1 (0.0-0.7) 10^3/uL Baso # (Auto) 0.0 (0.0-0.1) 10^3/uL Absolute Nucleated RBC 0.00 x10^3/uL Nucleated RBC % 0.0 /100WBC Sodium 137 (135-145) mmol/L Potassium 4.1 (3.5-5.0) mmol/L Chloride 99 L (101-111) mmol/L Carbon Dioxide 27 (21-32) mmol/L Anion Gap 11.0 (6-13) BUN 23 H (6-20) mg/dL Creatinine 0.9 (0.4-1.0) mg/dL Estimated GFR (MDRD) 60 L (>89) Glucose 108 H (70-100) mg/dL Calcium 8.5 (8.5-10.3) mg/dL ABX Reporting Has patient been on IV antibiotics over the past 48 hours?: Yes Sepsis Event Note (H) - Evaluation Current Stage of Sepsis: Sepsis Possible source of Sepsis: positive: Skin/soft tissue - Sepsis Criteria Sepsis Criteria: WBC count greater than 12,000 or less than 4000, Metabolic: lactate > 2 mmol/L Assessment/Plan - Problem List (1) Sepsis Impression: This is secondary to the right lower extremity cellulitis and the Streptococcus bacteremia. She has been afebrile with an improving white count on a daily basis. Her lactic acid is also within normal limits and her renal function is back to baseline. Clinically she is no longer septic. She remains on Unasyn IV for the right lower extremity cellulitis. (2) Cellulitis of right lower extremity Impression: This was the cause of her sepsis. Her blood cultures have grown Streptococcus group C which is likely secondary to cellulitis. Vancomycin has been discontinued and she remains on Unasyn IV alone. Clinically she is improving given her decreasing white count and erythema. She remains on Unasyn IV for the time being and repeat blood cultures have been ordered. (3) Streptococcal bacteremia Impression: Her blood cultures from admission grew strep equism which is likely secondary to the right lower extremity cellulitis. She remains on Unasyn IV. Repeat cultures have been ordered today to ensure clearance. An echocardiogram has been also ordered to evaluate for potential vegetation. If repeat cultures are negative we can likely transition her to ceftriaxone 2 g IV daily to complete 14 weeks of treatment. (4) Chronic back pain Impression: Given her complaints of lower back pain, we did obtain a CT without contrast today of the lumbar spine which showed no acute fracture. Showed postsurgical changes of L2-L4. There were also varying degrees of spinal canal stenosis. We have recommended outpatient follow-up with a primary care physician for consideration of physical therapy and referral to neurosurgery/orthopedic surgery. We will continue her pain regimen with morphine 30 mg twice daily as well as Lyrica and Cymbalta. (5) Atrial fibrillation Impression: She is rate controlled on carvedilol. Continue carvedilol and Eliquis for anticoagulation. (6) GERD (gastroesophageal reflux disease) Impression: Stable. Continue Protonix. (7) Hypertension Impression: Her blood pressure is well controlled on carvedilol alone which wee will cont inue. Continue to hold chlorthalidone. (8) Depression Impression: Stable. Continue Cymbalta. (9) Acute kidney injury Impression: This was likely prerenal injury. Her creatinine has now returned within normal limits. We will look to resume her spironolactone tomorrow.
[2021-02-23] MEDS: SODIUM CHLORIDE FLUSH 0.9% 10 ML SYRINGE IVP SCH ×3 (02:02→17:36)
[2021-02-23] MEDS: AMPICILLIN/SULBACTAM 3 GM in SODIUM CHLORIDE 0.9% MINIBAG 100 ML IV SCH ×3 (02:02→13:34)
[2021-02-23] MEDS: oxyCODONE 5 MG TABLET PO PRN ×2 (02:15→14:33)
[2021-02-23 04:32] LABS: BASOPHILS # (AUTO) 0.1 10^3/uL (0.0-0.1); BASOPHILS % (AUTO) 0.8 %; EOSINOPHILS # (AUTO) 0.2 10^3/uL (0.0-0.7); EOSINOPHILS % (AUTO) 2.3 %; HCT - HEMATOCRIT 44.4 % (37.0-47.0); HGB - HEMOGLOBIN 13.4 g/dL (12.0-16.0); LYMPHOCYTES # (AUTO) 0.7 10^3/uL (1.5-3.5); LYMPHOCYTES % (AUTO) 9.8 %; MEAN CORPUSCULAR HGB CONC 30.2 g/dL (32.0-36.0); MEAN PLATELET VOLUME 10.9 fL (7.9-10.8); MONOCYTES % (AUTO) 13.7 %; NEUTROPHILS # (AUTO) 5.3 10^3/uL (1.5-6.6); NEUTROPHILS % (AUTO) 72.4 %; PLT - PLATELET COUNT 147 10^3/uL (130-450); RED BLOOD COUNT 4.19 10^6/uL (4.20-5.40); RED CELL DISTRIBUTION WIDTH 14.5 % (12.0-15.0); WHITE BLOOD COUNT 7.3 x10^3/uL (4.8-10.8)
[2021-02-23 04:51] LABS: CALCIUM 8.4 mg/dL (8.5-10.3); CREATININE 0.9 mg/dL (0.4-1.0); POTASSIUM 3.8 mmol/L (3.5-5.0)
[2021-02-23] MEDS: PANTOPRAZOLE 40 MG TABLET PO SCH (06:21)
[2021-02-23] MEDS: SODIUM CHLORIDE FLUSH 0.9% 10 ML SYRINGE IVP PRN (08:37)
[2021-02-23] MEDS: DULoxetine 30 MG CAPSULE PO SCH (08:38)
[2021-02-23] MEDS: SPIRONOLACTONE 25 MG TABLET PO SCH (08:38)
[2021-02-23] MEDS: PREGABALIN 25 MG CAPSULE PO SCH ×2 (08:38→21:23)
[2021-02-23] MEDS: CHOLECALCIFEROL 25 MCG TABLET PO SCH (08:38)
[2021-02-23] MEDS: MORPHINE SULFATE ER 30 MG TABLET PO SCH ×2 (08:39→21:23)
[2021-02-23] MEDS: APIXABAN 5 MG TABLET PO SCH ×2 (08:39→21:23)
[2021-02-23] MEDS: polyethylene glycoL 3350 17 GM PACKET PO SCH (08:40)
[2021-02-23] MEDS: ACETAMINOPHEN 325 MG TABLET PO PRN (08:40)
[2021-02-23] MEDS: carvediloL 3.125 MG TABLET PO SCH ×2 (08:40→21:23)
[2021-02-23] MEDS: DOCUSATE SODIUM 250 MG CAPSULE PO SCH (08:42)
[2021-02-23] MEDS: NYSTATIN POWDER 15 GM TOP SCH ×2 (11:17→21:26)
--- NOTE | 2021-02-23 15:26 | PROVIDER PROGRESS NOTE ---
Subjective - Prog Note Date Prog Note Date: 02/23/21 Prog Note Time: 15:30 - Subjective Subjective: Her main complaint is back pain. She is not very concerned about her right leg anymore. The pain and swelling that has improved between yesterday to today. She cannot believe how much this is "laid me down". She is tearful and stunned at the idea that mobility just to get up out of bed is severely limited because of pain. Pain is located to the back. It is nonradiating. There is no bowel incontinence with it. She always has intermittent urinary incontinence with or without back pain and that is not new. She otherwise denies fever, rigors, cough, chest pain, abdominal pain. Current Medications - Current Medications Current Medications: Active Medications Acetaminophen (Acetaminophen 325 Mg Tablet) 650 mg PO Q6HR PRN PRN Reason: Pain 1 to 4 Last Admin: 02/23/21 08:40 Dose: 650 mg Documented by: Apixaban (Apixaban 5 Mg Tablet) 5 mg PO BID [facility] Last Admin: 02/23/21 08:39 Dose: 5 mg Documented by: Carvedilol (Carvedilol 3.125 Mg Tablet) 6.25 mg PO BID [facility] Last Admin: 02/23/21 08:40 Dose: 6.25 mg Documented by: Cholecalciferol (Cholecalciferol 25 Mcg Tablet) 50 mcg PO DAILY [facility] Last Admin: 02/23/21 08:38 Dose: 50 mcg Documented by: Cyclobenzaprine HCl (Cyclobenzaprine 10 Mg Tablet) 10 mg PO TID PRN PRN Reason: Spasms Last Admin: 02/22/21 16:58 Dose: 10 mg Documented by: Docusate Sodium (Docusate Sodium 250 Mg Capsule) 250 - 500 mg PO DAILY [facility] Last Admin: 02/23/21 08:42 Dose: Not Given Documented by: Duloxetine HCl (Duloxetine 30 Mg Capsule) 30 mg PO DAILY [facility] Last Admin: 02/23/21 08:38 Dose: 30 mg Documented by: Ceftriaxone Sodium 2 gm/ (Sodium Chloride) 100 mls @ 200 mls/hr IV DAILY [facility] Morphine Sulfate (Morphine 2 Mg/Ml Carpuject) 2 mg IVP Q2HR PRN PRN Reason: Pain 8 to 10 Last Admin: 02/20/21 17:54 Dose: 2 mg Documented by: Morphine Sulfate (Morphine Sulfate Er 30 Mg Tablet) 30 mg PO BID [facility] Last Admin: 02/23/21 08:39 Dose: 30 mg Documented by: Nystatin (Nystatin Powder 15 Gm) 1 applic TOP BID [facility] Last Admin: 02/23/21 11:17 Dose: 1 applic Documented by: Ondansetron HCl (Ondansetron 4 Mg/2 Ml Vial) 4 mg IVP Q6HR PRN PRN Reason: Nausea / Vomiting Last Admin: 02/22/21 12:01 Dose: 4 mg Documented by: Oxycodone HCl (Oxycodone 5 Mg Tablet) 5 mg PO Q4HR PRN PRN Reason: Pain 5 to 7 Last Admin: 02/23/21 14:33 Dose: 5 mg Documented by: Pantoprazole Sodium (Pantoprazole 40 Mg Tablet) 40 mg PO QDAC [facility] Last Admin: 02/23/21 06:21 Dose: 40 mg Documented by: Polyethylene Glycol (Polyethylene Glycol 3350 17 Gm Packet) 17 gm PO DAILY [facility] Last Admin: 02/23/21 08:40 Dose: 17 gm Documented by: Pregabalin (Pregabalin 25 Mg Capsule) 75 mg PO BID [facility] Last Admin: 02/23/21 08:38 Dose: 75 mg Documented by: Sodium Chloride (Sodium Chloride Flush 0.9% 10 Ml Syringe) 10 ml IVP PRN PRN PRN Reason: NEEDED PER PROVIDER ORDERS Last Admin: 02/23/21 08:37 Dose: 10 ml Documented by: Sodium Chloride (Sodium Chloride Flush 0.9% 10 Ml Syringe) 10 ml IVP 0100,0900,1700 [facility] Last Admin: 02/23/21 08:25 Dose: 10 ml Documented by: Spironolactone (Spironolactone 25 Mg Tablet) 50 mg PO QDBREAKFAST [facility] Last Admin: 02/23/21 08:38 Dose: 50 mg Documented by: Acetaminophen [Pain Relief] 1,000 mg PO BID 08/26/13 Cholecalciferol (Vitamin D3) [Vitamin D] 2,000 unit PO DAILY 08/26/13 Morphine Sulfate [Morphine Sulfate ER] 30 mg PO BID 08/26/13 carvediloL [Coreg] 6.25 mg PO BID 08/26/13 DULoxetine [Cymbalta] 30 mg PO DAILY 03/10/19 Pregabalin [Lyrica] 75 mg PO BID 03/10/19 Spironolactone 50 mg PO QDBREAKFAST 03/10/19 Apixaban [Eliquis] 5 mg BID 02/19/21 Chlorthalidone 25 mg PO DAILY 02/19/21 Omeprazole [PriLOSEC] 20 mg PO DAILY 02/19/21 Objective - Vital Signs/Intake & Output Reviewed Vital Signs: Yes Vital Signs: Vital Signs x48h Temp Pulse Resp BP Pulse Ox 02/23/21 07:50 36.5 C 60 18 119/68 93 Intake & Output: Intake & Output 02/20/21 02/21/21 02/22/21 02/23/21 23:59 23:59 23:59 23:59 Intake Total 2298 3086 2240 1590 Output Total 263 138 7782 700 Balance 1448 2986 990 890 - Objective General Appearance: positive: Alert (Lying flat on the bed, still. She says that every time she tries to turn she has such wrenching back pain it takes away her breath. is at the bedside. He is sitting in his 4 wheeled walker that has a seat.), Moderate distress Eyes Bilateral: positive: PERRL, EOMI ENT: positive: No signs of dehydration Neck: positive: No JVD. negative: Stiff neck Respiratory: positive: No respiratory distress. negative: Wheezes, Rales, Rhonchi Cardiovascular: positive: Regular rate & rhythm. negative: Gallop/S4, Friction rub Abdomen: positive: Non-tender, No organomegaly, Nml bowel sounds, No distention Skin: positive: Warm, Dry, Other (The redness, edema of the skin on the right leg has improved tremendously. It is now only a faint redness starting in the mid elias down. Trace edema. Trace heat. Marked improvement from yesterday where the redness was thick, hot, and extend all the way to just below the knee.) Extremities: positive: Non-tender, Pedal edema (1+ of the right foot going about midway on the right elias. The left leg is only trace edema.) Neurologic/Psychiatric: positive: Oriented x3, CN's nml (2-12), Motor nml (Linited By back pain) - Lab Results Fish Bones: 02/23/21 04:22 02/23/21 04:22 Other Labs: Lab Results x24hrs 02/23/21 02/23/21 Range/Units 04:22 04:22 WBC 7.3 (4.8-10.8) x10^3/uL RBC 4.19 L (4.20-5.40) 10^6/uL Hgb 13.4 (12.0-16.0) g/dL Hct 44.4 (37.0-47.0) % MCV 106.0 H (81.0-99.0) fL MCH 32.0 H (27.0-31.0) pg MCHC 30.2 L (32.0-36.0) g/dL RDW 14.5 (12.0-15.0) % Plt Count 147 (130-450) 10^3/uL MPV 10.9 H (7.9-10.8) fL Neut # (Auto) 5.3 (1.5-6.6) 10^3/uL Lymph # (Auto) 0.7 L (1.5-3.5) 10^3/uL [place] # (Auto) 1.0 (0.0-1.0) 10^3/uL Eos # (Auto) 0.2 (0.0-0.7) 10^3/uL Baso # (Auto) 0.1 (0.0-0.1) 10^3/uL Absolute Nucleated RBC 0.00 x10^3/uL Nucleated RBC % 0.0 /100WBC Sodium 135 (135-145) mmol/L Potassium 3.8 (3.5-5.0) mmol/L Chloride 97 L (101-111) mmol/L Carbon Dioxide 27 (21-32) mmol/L Anion Gap 11.0 (6-13) BUN 23 H (6-20) mg/dL Creatinine 0.9 (0.4-1.0) mg/dL Estimated GFR (MDRD) 60 L (>89) Glucose 102 H (70-100) mg/dL Calcium 8.4 L (8.5-10.3) mg/dL ABX Reporting Has patient been on IV antibiotics over the past 48 hours?: Yes Sepsis Event Note (H) - Evaluation Current Stage of Sepsis: Sepsis Possible source of Sepsis: positive: Skin/soft tissue - Sepsis Criteria Sepsis Criteria: WBC count greater than 12,000 or less than 4000, Metabolic: lactate > 2 mmol/L Assessment/Plan - Problem List (1) Cellulitis of right lower extremity Impression: Impression: This was the cause of her sepsis. Her blood cultures have grown Streptococcus group C which is likely secondary to cellulitis. Vancomycin has been discontinued and she remains on Unasyn IV alone. the sepsis is now resolved. Today's examination shows the cellulitis to receded at least 50% from the markings that were drawn at around the level. The redness, heat, and edema of the skin is now at mid elias down. She is on IV Unasyn. Blood cultures were positive for strep February 19, and repeat blood cultures from yesterday are negative after 1 day. (3) Streptococcal bacteremia Impression: Her blood cultures from admission grew strep equism which is likely secondary to the right lower extremity cellulitis. She remains on Unasyn IV. Repeat cultures from 02/22 have no growth. Preliminary echocardiogram report has a left ventricular systolic function is normal with an ejection fraction of 55 to 60%. She has an underlying rhythm of A. fib. Right ventricle normal. Severe increase in left atrial volume index. Severe right atrial enlargement. No aortic stenosis. Mild to moderately abnormal right heart pressures with an RVSP at 50 mmHg. No valvular heart disease seen. Since repeat cultures are negative we can likely transition her to ceftriaxone 2 g IV daily to complete 14 weeks of treatment. (4) Chronic back pain, severe. Impression: Given her complaints of lower back pain, we did obtain a CT without contrast today of the lumbar spine which showed no acute fracture. Showed postsurgical changes of L2-L4. There were also varying degrees of spinal canal stenosis. As far as she is concerned, this is the thing that is giving her the most problems of anything. It is severely limited her mobility, ability from supine to sitting and sitting to standing positions. We have recommended outpatient follow-up with a primary care physician for consideration of physical therapy and referral to neurosurgery/orthopedic surgery. We will continue her pain regimen with morphine 30 mg twice daily as well as Lyrica and Cymbalta. Today I will have physical therapy evaluate her. She is not able to return to home to her baseline status. (5) Atrial fibrillation Impression: She is rate controlled on carvedilol. Continue carvedilol and Eliquis for anticoagulation. (6) GERD (gastroesophageal reflux disease) Impression: Stable. Continue Protonix. (7) Hypertension Impression: Her blood pressure is well controlled on carvedilol alone which wee will continue. Continue to hold chlorthalidone. (8) Depression Impression: Stable. Continue Cymbalta. (9) Acute kidney injury Impression: This was likely prerenal injury. Her creatinine has now returned within normal limits. We will look to resume her spironolactone today.
[2021-02-23] MEDS: cefTRIAXone 2 GM in SODIUM CHLORIDE 0.9% MINIBAG 100 ML IV SCH (21:26)
[2021-02-24] MEDS: SODIUM CHLORIDE FLUSH 0.9% 10 ML SYRINGE IVP SCH ×3 (00:10→17:15)
[2021-02-24] MEDS: oxyCODONE 5 MG TABLET PO PRN ×3 (00:10→11:39)
[2021-02-24] MEDS: CYCLOBENZAPRINE 10 MG TABLET PO PRN (00:10)
[2021-02-24 04:47] LABS: BASOPHILS % (AUTO) 0.6 %; EOSINOPHILS # (AUTO) 0.2 10^3/uL (0.0-0.7); EOSINOPHILS % (AUTO) 2.7 %; HCT - HEMATOCRIT 41.6 % (37.0-47.0); HGB - HEMOGLOBIN 13.5 g/dL (12.0-16.0); LYMPHOCYTES # (AUTO) 0.7 10^3/uL (1.5-3.5); LYMPHOCYTES % (AUTO) 9.9 %; MEAN CORPUSCULAR HEMOGLOBIN 32.3 pg (27.0-31.0); MEAN CORPUSCULAR HGB CONC 32.5 g/dL (32.0-36.0); MEAN CORPUSCULAR VOLUME 99.5 fL (81.0-99.0); MEAN PLATELET VOLUME 11.2 fL (7.9-10.8); MONOCYTES # (AUTO) 0.8 10^3/uL (0.0-1.0); MONOCYTES % (AUTO) 11.7 %; NEUTROPHILS % (AUTO) 73.3 %; PLT - PLATELET COUNT 176 10^3/uL (130-450); RED BLOOD COUNT 4.18 10^6/uL (4.20-5.40); RED CELL DISTRIBUTION WIDTH 14.2 % (12.0-15.0); WHITE BLOOD COUNT 6.8 x10^3/uL (4.8-10.8)
[2021-02-24 04:52] LABS: CALCIUM 8.6 mg/dL (8.5-10.3); CREATININE 0.9 mg/dL (0.4-1.0)
[2021-02-24] MEDS: PANTOPRAZOLE 40 MG TABLET PO SCH (06:26)
[2021-02-24] MEDS: ACETAMINOPHEN 325 MG TABLET PO PRN (09:33)
[2021-02-24] MEDS: MORPHINE SULFATE ER 30 MG TABLET PO SCH ×2 (09:34→20:34)
[2021-02-24] MEDS: CHOLECALCIFEROL 25 MCG TABLET PO SCH (09:35)
[2021-02-24] MEDS: PREGABALIN 25 MG CAPSULE PO SCH ×2 (09:36→20:34)
[2021-02-24] MEDS: DULoxetine 30 MG CAPSULE PO SCH (09:36)
[2021-02-24] MEDS: APIXABAN 5 MG TABLET PO SCH ×2 (09:36→20:34)
[2021-02-24] MEDS: SPIRONOLACTONE 25 MG TABLET PO SCH (09:36)
[2021-02-24] MEDS: DOCUSATE SODIUM 250 MG CAPSULE PO SCH (09:37)
[2021-02-24] MEDS: carvediloL 3.125 MG TABLET PO SCH ×2 (09:37→20:34)
[2021-02-24] MEDS: polyethylene glycoL 3350 17 GM PACKET PO SCH (09:37)
[2021-02-24] MEDS: cefTRIAXone 2 GM in SODIUM CHLORIDE 0.9% MINIBAG 100 ML IV SCH (09:38)
--- NOTE | 2021-02-24 11:10 | XRAY Report ---
PROCEDURE: Chest for Line Placement INDICATIONS: check for line placement TECHNIQUE: One view of the chest was acquired. COMPARISON: 03/10/2019 FINDINGS: Surgical changes and devices: Left chest wall pacemaker lead is in the region of right ventricle. Rig ht-sided PICC line tip is in the region of SVC.. Lungs and pleura: No pleural effusions or pneumothorax. Lungs are clear. Mediastinum: Mediastinal contours appear normal. Heart size is enlarged Bones and chest wall: No suspicious bony lesions. Overlying soft tissues appear unremarkable. IMPRESSION: 1. Right-sided PICC line tip is in the region of SVC. 2. Cardiomegaly. No focal infiltrate or pneumothorax. Reviewed by: Neto Deutsch MD on 02/24/2021 11:08 AM PDT Approved by: Neto Deutsch MD on 02/24/2021 11:08 AM PDT Station ID: [id number]
[2021-02-24] MEDS: NYSTATIN POWDER 15 GM TOP SCH ×2 (11:39→20:34)
--- NOTE | 2021-02-24 11:51 | ANESTHESIA PROCEDURE NOTE ---
Anesth Central Line Template - Central Line Central Line Preparation: Consent Obtained, Time out completed, Ultrasound used, Sterile prep and drape Central line location: Right Basilic Central line type: PICC Double Lumen Central line catheter tip site resides: Superior vena cava (SVC) Central line aftercare: Placement confirmed, No complications, Bundle checklist complete, Pt tolerated well
--- NOTE | 2021-02-24 15:07 | PROVIDER PROGRESS NOTE ---
Subjective - Prog Note Date Prog Note Date: 02/24/21 Prog Note Time: 15:06 - Subjective Pt reports feeling: No change Subjective: She is consistent in her history that her leg is much improved but her back continues to be very problematic. It just locks up on her and she cannot move. She is working with physical therapy and it is very hard going. Pain continues to be staying in her back, nonradiating down her legs. No bowel or bladder incontinence with this. Objective - Vital Signs/Intake & Output Reviewed Vital Signs: Yes Vital Signs: Vital Signs x48h Temp Pulse Resp BP Pulse Ox 02/24/21 07:56 36.2 C L 59 L 20 115/92 H 92 Intake & Output: Intake & Output 02/21/21 02/22/21 02/23/21 02/24/21 23:59 23:59 23:59 23:59 Intake Total 3086 2240 2540 1170 Output Total 100 1250 1150 850 Balance 2986 990 1390 320 - Objective General Appearance: positive: Alert, Mild distress, Other (5 feet 4 inches female who weighs 115.5 kg. She prefers to lay perfectly still because if she moves in the wrong direction the back spasm is so fears it brings tears to her eyes.) Eyes Bilateral: positive: PERRL, EOMI ENT: positive: No signs of dehydration Neck: positive: No JVD Respiratory: positive: No respiratory distress. negative: Wheezes, Rales, Rhonchi Cardiovascular: positive: Irregularly irregular. negative: Gallop/S4, Friction rub Abdomen: positive: Non-tender, No organomegaly, Nml bowel sounds, No distention, Other (Eating 75 to 100% of her meals) Skin: positive: Warm, Dry. negative: Pallor Extremities: positive: Full ROM, Pedal edema (Trace around the left ankle. Around the right ankle the 1+ to 2+ edema is gradually resolving as the cellulitis improves. She continues to have the divot of a vertical scar in her mid elias from where her dog scratch was. A tiny triangular skin tear on the lateral aspect of the calf. The density) Neurologic/Psychiatric: positive: Oriented x3, CN's nml (2-12). negative: Motor nml (She is able to move her arms and legs, but causes significant pain in her back. No focal deficit.Even bending her knees and then flexing her hips causes tremendous back spasm.) - Lab Results Fish Bones: 02/24/21 04:19 02/24/21 04:19 Other Labs: Lab Results x24hrs 02/24/21 02/24/21 Range/Units 04:19 04:19 WBC 6.8 (4.8-10.8) x10^3/uL RBC 4.18 L (4.20-5.40) 10^6/uL Hgb 13.5 (12.0-16.0) g/dL Hct 41.6 (37.0-47.0) % MCV 99.5 H (81.0-99.0) fL MCH 32.3 H (27.0-31.0) pg MCHC 32.5 (32.0-36.0) g/dL RDW 14.2 (12.0-15.0) % Plt Count 176 (130-450) 10^3/uL MPV 11.2 H (7.9-10.8) fL Neut # (Auto) 5.0 (1.5-6.6) 10^3/uL Lymph # (Auto) 0.7 L (1.5-3.5) 10^3/uL Foard # (Auto) 0.8 (0.0-1.0) 10^3/uL Eos # (Auto) 0.2 (0.0-0.7) 10^3/uL Baso # (Auto) 0.0 (0.0-0.1) 10^3/uL Absolute Nucleated RBC 0.00 x10^3/uL Nucleated RBC % 0.0 /100WBC Sodium 138 (135-145) mmol/L Potassium 4.0 (3.5-5.0) mmol/L Chloride 96 L (101-111) mmol/L Carbon Dioxide 30 (21-32) mmol/L Anion Gap 12.0 (6-13) BUN 24 H (6-20) mg/dL Creatinine 0.9 (0.4-1.0) mg/dL Estimated GFR (MDRD) 60 L (>89) Glucose 115 H (70-100) mg/dL Calcium 8.6 (8.5-10.3) mg/dL ABX Reporting Has patient been on IV antibiotics over the past 48 hours?: Yes Sepsis Event Note (H) - Evaluation Current Stage of Sepsis: Sepsis Possible source of Sepsis: positive: Skin/soft tissue - Sepsis Criteria Sepsis Criteria: WBC count greater than 12,000 or less than 4000, Metabolic: lactate > 2 mmol/L Assessment/Plan - Problem List (1) Cellulitis of right lower extremity Impression: On admission she presented with sepsis because of this infection. Her blood cul tures have grown Streptococcus group C which is likely secondary to cellulitis. Vancomycin has been discontinued and she remains on Unasyn IV alone. the sepsis is now resolved. Redness and heat has steadily receded over the last 48 hours. The redness, heat, and edema of the skin is now Below mid elias.She was on Unasyn and has been changed to ceftriaxone. Blood cultures were positive for strep February 19, and repeat blood cultures from 02/22 are negative after 2 days. (2) Streptococcal bacteremia Impression: Her blood cultures from admission grew strep equism which is likely secondary to the right lower extremity cellulitis. She was initially on IV Unasyn. Repeat cultures from 02/22 have no growth. Preliminary echocardiogram report has a left ventricular systolic function is normal with an ejection fraction of 55 to 60%. She has an underlying rhythm of A. fib. Right ventricle normal. Severe increase in left atrial volume index. Severe right atrial enlargement. No aortic stenosis. Mild to moderately abnormal right heart pressures with an RVSP at 50 mmHg. No valvular heart disease seen. Routine susceptibility testing is usually not done on the strep since its predictability with regards to responding to ampicillin, penicillin, cepha losporins, Levaquin and vancomycin are present. As such she was changed to Rocephin today. Plan on 14 days total of IV antibiotic therapy. Plan: In addition to the antibiotic therapy, I have asked anesthesia to place a PICC line today. Since she is physically immobile from back pain, IV antibiotic therapy can can be continued at a [facility] facility as well. (3) Chronic back pain, severe. Impression: Given her complaints of lower back pain, we did obtain a CT without contrast today of the lumbar spine which showed no acute fracture. Showed postsurgical changes of L2-L4. There were also varying degrees of spinal canal stenosis. As far as she is concerned, this is the thing that is giving her the most problems of anything. It is severely limited her mobility, ability from supine to sitting and sitting to standing positions. We thought at first that this would be managed in the outpatient setting and she could follow-up with outpatient PT. But has been so severely limiting that we asked physical therapy to see her yesterday. Physical therapy feels that she is not going to be able to go home safely and will need [facility] facility rehab therapy. (4) Atrial fibrillation Impression: She is rate controlled on carvedilol. Continue carvedilol and Eliquis for anticoagulation. (5) GERD (gastroesophageal reflux disease) Impression: Stable. Continue Protonix. (6) Hypertension Impression: Her blood pressure is well controlled on carvedilol alone which wee will continue. Continue to hold chlorthalidone. (7) Depression Impression: Stable. Continue Cymbalta. (8) Acute kidney injury Impression: This was likely prerenal injury. Her creatinine has now returned within normal limits.
[2021-02-24 18:40] LABS: B. PARAPERTUSSIS- RESP PCR PAN NOT DETECTED; B. PERTUSSIS- RESP PCR PANEL NOT DETECTED; C. PNEUMONIAE- RESP PCR PANEL NOT DETECTED; CORONAVIRUS 229E-RESP PCR NOT DETECTED; CORONAVIRUS HKU1-RESP PCR NOT DETECTED; CORONAVIRUS NL63-RESP PCR NOT DETECTED; CORONAVIRUS OC43-RESP PCR NOT DETECTED; HUMAN METAPNEUMOVIRUS NOT DETECTED; INFLUENZA A- RESP PCR PANEL NOT DETECTED; INFLUENZA B - RESP PCR PANEL NOT DETECTED; M. PNEUMONIAE- RESP PCR PANEL NOT DETECTED; PARAINFLUENZA VIRUS 1 NOT DETECTED; PARAINFLUENZA VIRUS 2 NOT DETECTED; PARAINFLUENZA VIRUS 3 NOT DETECTED; PARAINFLUENZA VIRUS 4 NOT DETECTED; RHINOVIRUS/ENTEROVIRUS NOT DETECTED; RSV- RESP PCR PANEL NOT DETECTED; SARS-CoV-2 -RESP PCR PANEL NOT DETECTED
[2021-02-24] MEDS: MORPHINE 2 MG/ML CARPUJECT IVP PRN (19:59)
[2021-02-25] MEDS: ACETAMINOPHEN 325 MG TABLET PO PRN (00:42)
[2021-02-25] MEDS: SODIUM CHLORIDE FLUSH 0.9% 10 ML SYRINGE IVP SCH ×2 (00:42→08:55)
[2021-02-25] MEDS: PANTOPRAZOLE 40 MG TABLET PO SCH (06:08)
[2021-02-25] MEDS: oxyCODONE 5 MG TABLET PO PRN (06:08)
[2021-02-25] MEDS: CYCLOBENZAPRINE 10 MG TABLET PO PRN (06:08)
--- NOTE | 2021-02-25 07:26 | Discharge Plan ---
"Discharge Plan for SNF / [facility] - Discharge Plan And Transition Orders Problem Reviewed?: Yes Disposition: 03 SNF DC/Xfer Condition: Serious Allergies and Adverse Reactions: Allergies Allergy/AdvReac Type Severity Reaction Status Date / Time metolazone Allergy Severe Unknown Verified 02/20/21 14:14 ibuprofen [From Advil] Allergy Intermediate Rash Verified 02/19/21 19:15 gabapentin Allergy Hives Verified 02/19/21 19:15 Health Concerns: This is a den lady who is already been slowing down at home due to chronic back pain. She uses a walker and is on chronic stable maintained opioid use. She presents to the emergency room because of right leg pain and edema. Her dog had scratched her. We found her to have fairly severe cellulitis of the leg. She presented as sepsis as a result of the cellulitis. Blood cultures ended up growing Streptococcus dysgalac. It is sensitive to penicillins, cephalosporins. Although she improved from her cellulitis, her back pain is so severe she cannot even logroll to the side to get up. She has been working with physical therapy who feels she cannot return to home until some of her back spasm improves. She is being transferred to [facility] facility for physical and occupational therapy with regards to her back pain. She also needs to complete 7 days of IV antibiotic therapy for the bacteremia. Plan of Treatment: Physical therapy and Occupational Therapy IV antibiotics Care Goals: To return to home for independent living. To start planning for the future if her back still bothers her and her cannot take care of her Assessment: Patient and are aware of care plan, are making plans for the future and will follow through to complete current episode treatment plan - SNF / [facility] Transition Orders Admit to (Facility): [facility] Discharge Diagnosis: 1. Sepsis 2. Cellulitis of right lower extremity 3. Streptococcal equis bacteremia 4. Chronic atrial fibrillation 5. Chronic systolic congestive heart failure 6. GERD 7. Acute on chronic back pain 8. Depressive disorder 9. Hypertension 10. Spinal stenosis Medicare Certification Statement: I certify that [facility] care is medically necessary on a continuing basis for any of the conditions for which she/he is receiving care during hospitalization. Notify PCP of admission and forward orders to primary provider for signature. Weight on admission and: Weekly Other Notification Orders: Call PCP immediately if patient develops dyspnea, chest pain/tightness or edema. House Bowel Program: Yes Additional Bowel Program Orders: If no BM after 2 days, nurse may give M.O.M. 30ml PO PRN and/or ducolax Supp 1 [place] and/or TUYET 250mg P.O., and/or senna 1-2 tabs PO. On day 3 nurse may give repeat above order until residents constipation is resolved. Annual Influenza Vaccine (between Mar 09 and October 06): Yes Two-step PPD per [facility] [phone] or approved exception documents: Yes Medication Orders: PLEASE REFER TO THE DISCHARGE MEDICATION LIST. - Medications New Prescriptions: oxyCODONE [Roxicodone] 5 mg PO Q4HR PRN #30 tablet PRN Reason: Pain 5 to 7 Cyclobenzaprine [Flexeril] 10 mg PO TID PRN #30 tablet PRN Reason: Spasms Morphine Sulfate ER [Ms Contin] 30 mg PO BID #30 tab - Diet Type: Geriatric Texture: Regular Liquids: Thin May have monthly special meal: Yes - Therapies | Activity Therapy: Evaluation | Treat if indicated: PT, OT Rehabilitation Potential: Maximize functional status, Return to independent living Activity: Activity as Tolerated Weight Bearing: Full Weight Assistance Devices: Walker Additional Instructions: When she leaves the [facility] facility she will need to follow-up with her primary care provider, Ladarius Johns MD."
[2021-02-25] MEDS: DULoxetine 30 MG CAPSULE PO SCH (08:49)
[2021-02-25] MEDS: APIXABAN 5 MG TABLET PO SCH (08:49)
[2021-02-25] MEDS: PREGABALIN 25 MG CAPSULE PO SCH (08:50)
[2021-02-25] MEDS: polyethylene glycoL 3350 17 GM PACKET PO SCH (08:50)
[2021-02-25] MEDS: carvediloL 3.125 MG TABLET PO SCH (08:51)
[2021-02-25] MEDS: DOCUSATE SODIUM 250 MG CAPSULE PO SCH (08:51)
[2021-02-25] MEDS: SPIRONOLACTONE 25 MG TABLET PO SCH (08:51)
[2021-02-25] MEDS: cefTRIAXone 2 GM in SODIUM CHLORIDE 0.9% MINIBAG 100 ML IV SCH ×2 (08:52→09:42)
[2021-02-25] MEDS: CHOLECALCIFEROL 25 MCG TABLET PO SCH (08:52)
[2021-02-25] MEDS: MORPHINE SULFATE ER 30 MG TABLET PO SCH (08:52)
[2021-02-25] MEDS: NYSTATIN POWDER 15 GM TOP SCH (09:38)
[2021-02-25 11:13] VITALS: BP 129/69
--- NOTE | 2021-02-25 17:03 | DISCHARGE SUMMARY ---
"Discharge Summary Admit Date: 02/19/21 Discharge Date: 02/25/21 Discharging Provider: Latasha Turcios MD Primary Care Provider: Ladarius Johns MD Code Status: Do Not Attempt Resuscitation Condition at Discharge: Fair Discharge Disposition: 03 SNF DC/Xfer - DIAGNOSES Discharge Diagnoses with Status of Each Condition: 1. Sepsis 2. Cellulitis of right lower extremity 3. Streptococcal equis bacteremia 4. Chronic atrial fibrillation 5. Chronic systolic congestive heart failure 6. GERD 7. Acute on chronic back pain 8. Depressive disorder 9. Hypertension 10. Spinal stenosis - HPI History of Present Illness: Patient is an 81-year-old female who presented to the ED with right lower extremity redness. She was scratched by her dog 2 days ago. She reports a similar incident in the same limb in October 2020 as a result she was concerned about it and decided to be evaluated the ED. Her right lower extremity is erythematous from the knee down to the ankle. There is a scratch which was draining purulent material. This was cultured in the ED. She is afebrile. However work-up included a CBC which showed a white count of 17. She also had a lactic acid of 2.5. As a result of her presentation she was presented for admission. At bedside she is very somnolent because of 9 mg of morphine she was given in th e ED. As a result the history taking is limited. However she denied chest pain, abdominal pain, nausea, vomiting, fever or chills. - Past Medical History Cardiovascular: reports: Congestive heart failure, Hypertension, Atrial fibril lation, Other Respiratory: reports: Asthma Neuro: reports: None Endocrine/Autoimmune: reports: None GI: reports: Other [employer] CONSULTANT: reports: None : reports: Incontinence, Frequency HEENT: reports: None Psych: reports: Depression, Anxiety Musculoskeletal: reports: Osteoarthritis, Chronic back pain Derm: reports: Eczema MRSA Hx?: No - Past Surgical History Ortho: reports: Knee replacement, Arthroscopic surgery, Spine surgery, Other /[employer] CONSULTANT: reports: Dilation and currettage Cardiovascular: reports: Pacemaker - CONSULTS | PROCEDURES Procedures: 1. Preliminary echo report that needs to be reviewed for final report. Underlying rhythm A. fib. Ejection fraction 55 to 60%. Right ventricle normal. Severe increase in left atrial volume index. Severe right atrial enlargement. Moderate tricuspid regurgitation was mild to moderately abnormal right heart pressures. No other significant valvular heart disease. 2. Lumbar spine CT without acute fracture. Postsurgical changes of L2-L4 with posterior fixation. Varying degrees of spinal stenosis and neural foraminal stenosis throughout the lumbar spine. 3. Right-sided PICC line in place. Cardiomegaly. No infiltrate or pneumothorax. 4. Blood cultures February 19 in right and left arms shows strep Dysgalac 5. Right leg culture with beta-hemolytic strep February 19. 6. Blood cultures February 22 without growth after 2 days - HOSPITAL COURSE Hospital Course: Her sepsis criteria gradually resolved as the treatment of her cellulitis on her right leg improved. By the time of discharge the density and redness and heat had abated considerably by about 75%. The redness and heat it extended to the knee and by the time of discharge was the distal one third of the leg. Empiric antibiotic therapy for her leg consisted of Zosyn and vancomycin. Once blood cultures came back in the strep was universally sensitive to cephalosporins he was switched to Rocephin. Because of the bacteremia she will need up to 2 weeks of therapy. PICC line was placed for 7 more days of antibiotic therapy. The patient is significantly impaired by low back pain at this time. She has chronic opioid use that was not increased during her hospitalization. Pain increased and flared and she was not able to get out of bed very easily. Physical therapy was consulted and they feel this patient would benefit from [facility]. As such she was choice to a residential facility for IV antibiotic therapy and residential facility for physical therapy. Admission creatinine of 1.1 normalized to 0.9 by discharge. Glucose was noted to be mildly elevated. Highest glucose, fasting, was 133. The rest of the time she was below 115. White cell count on admission was 17.7 and was 6.8 by the time of discharge. At discharge she was slightly depressed, dispirited. She is starting to realize that her immobility may be something that she has to seriously think about for the future. At this time she plans to return to home. But she and her are now seriously considering what the future would look like and are considering whether they need to move in your relatives, moved to an assisted living facility, etc. Temperature is 36.5. Pulse 65. Blood pressure 129/69. Respirations 16 and 95% on room air. She is a 5 foot 4 inch female who weighs 115 kg. Looks stated age. Neck is supple without goiter or JVD Good airway sounds. No crackles rhonchi wheezing or increased respiratory effort Irregular rate and rhythm with a soft systolic ejection murmur. Abdomen is obese, soft, and there is resolving Destiny intertrigo in the pannus. And intertriginous folds Extremities show trace edema around the left ankle and superficial venous perforators of the calf and elias. On the right, she is a still present red density of skin discoloration from resolving cellulitis the distal one third of her elias. There is a healed closed vertical incision from where her dog scratched her. There is no skin breakdown. No bullous changes. This leg has close to 1+ edema in comparison to the left leg. Neurologically she is alert and oriented. Elusive historian. Lucid speech. Can follow two-step commands. Needs 2 person assist to be able to sit up and to stand. This is not because of lower extremity weakness but more because of lower back spasm and pain. Greater than 30 minutes were spent coordinating discharge. - ALLERGIES Allergies/Adverse Reactions: Allergies Allergy/AdvReac Type Severity Reaction Status Date / Time metolazone Allergy Severe Unknown Verified 02/20/21 14:14 ibuprofen [From Advil] Allergy Intermediate Rash Verified 02/19/21 19:15 gabapentin Allergy Hives Verified 02/19/21 19:15 - MEDICATIONS Home Medications: Ambulatory Orders Medication Instructions Recorded Confirmed Acetaminophen [Pain Relief] 1,000 mg PO BID 08/26/13 02/20/21 Cholecalciferol (Vitamin D3) 2,000 unit PO DAILY 08/26/13 02/20/21 [Vitamin D3] Morphine Sulfate [Morphine Sulfate 30 mg PO BID 08/26/13 02/19/21 ER] carvediloL [Coreg] 6.25 mg PO BID 08/26/13 02/19/21 DULoxetine [Cymbalta] 30 mg PO DAILY 03/10/19 02/19/21 Spironolactone 50 mg PO QDBREAKFAST 03/10/19 02/19/21 Apixaban [Eliquis] 5 mg BID 02/19/21 02/19/21 Chlorthalidone 25 mg PO DAILY 02/19/21 02/20/21 Omeprazole [PriLOSEC] 20 mg PO DAILY 02/19/21 02/20/21 Acetaminophen [Tylenol] 650 mg PO Q6HR PRN tablet 02/25/21 Cyclobenzaprine [Flexeril] 10 mg PO TID PRN #30 tablet 02/25/21 Morphine Sulfate ER [Ms Contin] 30 mg PO BID #30 tab 02/25/21 Nystatin [Nystop] 1 applic TOP BID bottle 02/25/21 Pregabalin [Lyrica] 75 mg PO BID #30 cap 02/25/21 Pregabalin [Lyrica] 75 mg PO BID #84 cap 02/25/21 cefTRIAXone [Rocephin 2 gram] 2 gm IV DAILY #7 vial 02/25/21 oxyCODONE [Roxicodone] 5 mg PO Q4HR PRN #30 tablet 02/25/21 - LABS Result Diagrams: 02/24/21 04:19 02/24/21 04:19 - SEPSIS Current Stage of Sepsis: Sepsis Possible source of Sepsis: Skin/soft tissue Sepsis Criteria: WBC count greater than 12,000 or less than 4000, Metabolic: lactate > 2 mmol/L"
== END 2021-02-25 12:15 | DRG 872 ==
LOC: ED 19:12 → MS3 20:25 → MS2 02-23 20:04
PROVIDERS: ADMIT Internal Medicine; ATTEND Specialist
PROC: 02HV33Z Insertion of Infusion Device into Superior Vena Cava, Percutaneous Approach (ICD-10-PCS; principal; 2021-02-24)
DX: A40.8 Other streptococcal sepsis (principal); L03.115 Cellulitis of right lower limb; E87.2 Acidosis; I48.20 Chronic atrial fibrillation, unspecified; I50.22 Chronic systolic (congestive) heart failure; I50.9 Heart failure, unspecified; I48.91 Unspecified atrial fibrillation; N17.9 Acute kidney failure, unspecified; I11.0 Hypertensive heart disease with heart failure; K21.9 Gastro-esophageal reflux disease without esophagitis; M54.9 Dorsalgia, unspecified; G89.29 Other chronic pain; F32.9 Major depressive disorder, single episode, unspecified; M48.061 Spinal stenosis, lumbar region without neurogenic claudication; S80.811A Abrasion, right lower leg, initial encounter; W54.8XXA Other contact with dog, initial encounter; Y92.9 Unspecified place or not applicable; Z20.822 Contact with and (suspected) exposure to COVID-19; Z66 Do not resuscitate; Z79.891 Long term (current) use of opiate analgesic; Z95.0 Presence of cardiac pacemaker; F41.9 Anxiety disorder, unspecified; N39.498 Other specified urinary incontinence
CPT/HCPCS: 36415; 71045; 72131; 80048; 83605; 83735; 85025; 87040; 87070; 87150; 87181; 87205; 87631; 93306; 96365; 96375; 97116; 97161; 97530; 99285; A9270; C1751; J3370; 0202U

== ENCOUNTER 2021-02-25 12:37 | Outpatient (CLI) | payer MEDICARE | END 2021-02-25 12:38 | LOC: EMS 12:37 | PROVIDERS: ATTEND Specialist | DX: L03.116 Cellulitis of left lower limb (principal); Z74.01 Bed confinement status | CPT/HCPCS: A0425; A0428 ==

== ENCOUNTER 2021-06-30 11:40 | Outpatient (CLI) | payer MEDICARE ==
[2021-06-30 15:36] LABS: CALCIUM 9.2 mg/dL (8.5-10.3); CREATININE 1.2 mg/dL (0.4-1.0)
== END 2021-06-30 11:41 | disposition home or self-care (01) ==
LOC: LAB.S 11:40
PROVIDERS: ATTEND Internal Medicine Cardiovascular Disease
DX: I47.2 Ventricular tachycardia (principal); I50.32 Chronic diastolic (congestive) heart failure
CPT/HCPCS: 36415; 80048

== ENCOUNTER 2021-11-08 14:45 | Outpatient (CLI) | payer MEDICARE ==
[2021-11-08 20:13] LABS: CALCIUM 9.3 mg/dL (8.5-10.3); CREATININE 1.2 mg/dL (0.4-1.0); POTASSIUM 4.7 mmol/L (3.5-5.0)
== END 2021-11-08 14:46 | disposition home or self-care (01) ==
LOC: LAB.S 14:45
PROVIDERS: ATTEND Internal Medicine Cardiovascular Disease
DX: I11.0 Hypertensive heart disease with heart failure (principal); I50.22 Chronic systolic (congestive) heart failure
CPT/HCPCS: 36415; 80048; 83880

== ENCOUNTER 2022-01-27 10:52 | Outpatient (CLI) | payer MEDICARE ==
[2022-01-27 14:47] LABS: CALCIUM 9.8 mg/dL (8.5-10.3); CREATININE 1.5 mg/dL (0.4-1.0); POTASSIUM 5.4 mmol/L (3.5-5.0)
== END 2022-01-27 10:53 | disposition home or self-care (01) ==
LOC: LAB.S 10:52
PROVIDERS: ATTEND Internal Medicine Cardiovascular Disease
DX: I11.0 Hypertensive heart disease with heart failure (principal); I50.22 Chronic systolic (congestive) heart failure
CPT/HCPCS: 36415; 80048; 83880

== ENCOUNTER 2022-01-31 11:24 | Outpatient (CLI) | payer MEDICARE ==
[2022-01-31 15:07] LABS: CALCIUM 9.7 mg/dL (8.5-10.3); CREATININE 1.3 mg/dL (0.4-1.0); POTASSIUM 5.2 mmol/L (3.5-5.0)
== END 2022-01-31 11:25 | disposition home or self-care (01) ==
LOC: LAB.S 11:24
PROVIDERS: ATTEND Internal Medicine Cardiovascular Disease
DX: I50.22 Chronic systolic (congestive) heart failure (principal)
CPT/HCPCS: 36415; 80048

== ENCOUNTER 2022-03-14 09:32 | Outpatient (CLI) | payer MEDICARE ==
[2022-03-14 16:45] LABS: CALCIUM 9.4 mg/dL (8.5-10.3); CREATININE 1.2 mg/dL (0.4-1.0); POTASSIUM 4.8 mmol/L (3.5-5.0)
== END 2022-03-14 09:33 | disposition home or self-care (01) ==
LOC: LAB.S 09:32
PROVIDERS: ATTEND Internal Medicine Cardiovascular Disease
DX: I11.0 Hypertensive heart disease with heart failure (principal); I50.22 Chronic systolic (congestive) heart failure
CPT/HCPCS: 36415; 80048; 83880

== ENCOUNTER 2022-05-10 12:51 | Outpatient (CLI) | payer MEDICARE ==
[2022-05-10 19:53] LABS: CALCIUM 9.3 mg/dL (8.5-10.3); CREATININE 1.3 mg/dL (0.4-1.0); POTASSIUM 5.1 mmol/L (3.5-5.0)
== END 2022-05-10 12:52 | disposition home or self-care (01) ==
LOC: LAB.S 12:51
PROVIDERS: ATTEND Internal Medicine Cardiovascular Disease
DX: I11.0 Hypertensive heart disease with heart failure (principal); I50.22 Chronic systolic (congestive) heart failure
CPT/HCPCS: 36415; 80048; 83880

== ENCOUNTER 2022-09-27 10:49 | Outpatient (CLI) | payer MEDICARE ==
--- NOTE | 2022-09-27 11:51 | XRAY Report ---
PROCEDURE: Knee 3 View LT INDICATIONS: LEFT KNEE PAIN TECHNIQUE: 3 views of the left knee(s) were acquired. COMPARISON: None. FINDINGS: Bones: No fractures or dislocations. No suspicious bony lesions. There is severe medial and moder ate lateral patellofemoral compartment narrowing. Prominent paratracheal or osteophytes are present. Medial compartment subchondral sclerosis is present. No erosions. Soft tissues: Minimal joint effusion. No suspicious soft tissue calcifications. IMPRESSION: Tricompartmental arthritic change most severe medially. Reviewed by: Tanna Mock MD on 09/27/2022 11:50 AM PDT Approved by: Tanna Mock MD on 09/27/2022 11:50 AM PDT Station ID: [id number]
== END 2022-09-27 10:50 | disposition home or self-care (01) ==
LOC: DI.S 10:49
PROVIDERS: ATTEND Physician Assistant
DX: M17.12 Unilateral primary osteoarthritis, left knee (principal)

== ENCOUNTER 2022-12-08 10:49 | Outpatient (CLI) | payer MEDICARE | END 2022-12-08 23:59 | disposition critical access hospital (66) | LOC: EMS 10:49 | DX: R11.0 Nausea (principal); K59.00 Constipation, unspecified | CPT/HCPCS: A0425; A0427 ==

== ENCOUNTER 2022-12-08 11:19 | Emergency (ER) | payer MEDICARE ==
[2022-12-08] MEDS ORDERED: ONDANSETRON 4 MG/2 ML VIAL IVP STA (11:31)
[2022-12-08 11:48] LABS: BASOPHILS % (AUTO) 0.4 %; EOSINOPHILS % (AUTO) 0.6 %; HGB - HEMOGLOBIN 14.8 g/dL (12.0-16.0); LYMPHOCYTES # (AUTO) 0.9 10^3/uL (1.5-3.5); LYMPHOCYTES % (AUTO) 12.2 %; MEAN CORPUSCULAR HEMOGLOBIN 31.9 pg (27.0-31.0); MEAN CORPUSCULAR HGB CONC 32.9 g/dL (32.0-36.0); MEAN PLATELET VOLUME 10.7 fL (7.9-10.8); MONOCYTES # (AUTO) 0.6 10^3/uL (0.0-1.0); MONOCYTES % (AUTO) 7.9 %; NEUTROPHILS # (AUTO) 5.5 10^3/uL (1.5-6.6); NEUTROPHILS % (AUTO) 78.6 %; PLT - PLATELET COUNT 202 10^3/uL (130-450); RED BLOOD COUNT 4.64 10^6/uL (4.20-5.40); RED CELL DISTRIBUTION WIDTH 14.9 % (12.0-15.0)
--- NOTE | 2022-12-08 11:48 | ED Physician Documentation ---
History of Present Illness - Stated complaint Stated Complaint: NAUSEA - Chief complaint Chief Complaint: Abd Pain - Additonal information Additional information: 82-year-old female is brought into the emergency department via EMS for evalua tion of persistent nausea and some vomiting that began 48 hours ago. She states that on Sunday she vomited but was able to keep simple liquids and water down yesterday but this morning she began having dry heaves again. She does endorse being more short of breath than usual. She denies chest pain. She is not having any particular abdominal pain but thought that she may be constipated because she does take morphine regularly. She did drink some MiraLAX and had a small bowel movement this morning but still feels like she has more to empty. No fevers. No dysuria. No increase in lower extremity swelling. No coughs. Patient does have a history of A-fib as well as a pacer in place. She is on Eliquis. She also takes a host of medications which include morphine, carvedilol, Aldactone, Lyrica, Plaquenil and torsemide. She is unable to tell me why she is taking Plaquenil. She feels generally unwell and is at this time a poor historian Review of Systems Constitutional: denies: Fever Cardiac: denies: Chest pain / pressure, Palpitations, Pedal edema, Calf pain Respiratory: reports: Dyspnea. denies: Cough, Hemoptysis, Wheezing GI: reports: Nausea, Vomiting, Constipation. 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 : Incontinence, Frequency HEENT: None Psych: Depression, Anxiety Musculoskeletal: Osteoarthritis, Chronic back pain Derm: Eczema - Past Surgical History Past Surgical History: Yes Ortho: Knee replacement, Arthroscopic surgery, Spine surgery, Other /BUILDING ARCHITECTURAL DESIGNER: Dilation and currettage Cardiovascular: Pacemaker - Present Medications Home Medications: Ambulatory Orders Medication Instructions Recorded Confirmed Acetaminophen [Pain Relief] 1,000 mg PO BID 08/26/13 12/08/22 Morphine Sulfate [Morphine Sulfate 30 mg PO BID 08/26/13 12/08/22 ER] carvediloL [Coreg] 6.25 mg PO BID 08/26/13 12/08/22 DULoxetine [Cymbalta] 30 mg PO DAILY 03/10/19 12/08/22 Spironolactone 50 mg PO QDBREAKFAST 03/10/19 12/08/22 Apixaban [Eliquis] 5 mg BID 02/19/21 12/08/22 Omeprazole [PriLOSEC] 20 mg PO DAILY 02/19/21 12/08/22 Acetaminophen [Tylenol] 650 mg PO Q6HR PRN tablet 02/25/21 12/08/22 Pregabalin [Lyrica] 75 mg PO BID #30 cap 02/25/21 12/08/22 Hydroxychloroquine [Plaquenil] 200 mg PO DAILY 12/08/22 12/08/22 Ondansetron Odt [Zofran] 4 mg TL Q6H PRN #10 tablet 12/08/22 Torsemide 5 mg PO DAILY 12/08/22 12/08/22 - Allergies Allergies/Adverse Reactions: Allergies Allergy/AdvReac Type Severity Reaction Status Date / Time metolazone Allergy Severe Unknown Verified 12/08/22 11:27 ibuprofen [From Advil] Allergy Intermediate Rash Verified 12/08/22 11:27 gabapentin Allergy Hives Verified 12/08/22 11:27 - Social History Does the pt smoke?: No Smoking Status: Never smoker Does the pt drink ETOH?: No Does the pt have substance abuse?: No - Immunizations Immunizations are current?: Yes - POLST Patient has POLST: No POLST Status: Full Code PD ED PE NORMAL - General General: Alert and oriented X 3. No: No acute distress (Prefers to keep her eyes well. Appears nauseated.), Well developed/nourished (Obese) - HEENT HEENT: PERRL - Cardiac Cardiac: RRR (Paced ECG on monitor), Strong equal pulses - Respiratory Respiratory: No respiratory distress, Clear bilaterally - Abdomen Abdomen: Normal bowel sounds, Soft, Non tender (No significant abdominal tenderness elicited. Negative Galo's. No guarding or rebound) - Extremities Extremities: No deformity - Neuro Neuro: Alert and oriented X 3, propagation manager 2-12 intact Eye Opening: Spontaneous Motor: Obeys Commands Verbal: Oriented GCS Score: 15 Results - Vitals Vitals: Vital Signs - 24 hr 12/08/22 12/08/22 11:24 14:22 Temperature 98 C H Heart Rate 60 68 Respiratory 18 18 Rate Blood Pressure 124/77 131/59 H O2 Saturation 100 93 Oxygen O2 Source Room air - EKG (time done) 1127 EKG releavant findings:: EKG personally interpreted by author of this note. Relevant findings are: Rate: Rate (enter#) (65) Rhythm: Paced Computer interpretation: Agree with computer (paced rythm; no further analysis attempted) - Labs Labs: Laboratory Tests 12/08/22 12/08/22 12/08/22 11:40 11:40 11:40 WBC 7.0 RBC 4.64 Hgb 14.8 Hct 45.0 MCV 97.0 MCH 31.9 H MCHC 32.9 RDW 14.9 Plt Count 202 MPV 10.7 Neut # (Auto) 5.5 Lymph # (Auto) 0.9 L [place] # (Auto) 0.6 Eos # (Auto) 0.0 Baso # (Auto) 0.0 Absolute Nucleated RBC 0.00 Nucleated RBC % 0.0 Sodium 138 Potassium 4.0 Chloride 96 L Carbon Dioxide 27 Anion Gap 15.0 H BUN 27 H Creatinine 1.3 H Estimated GFR (MDRD) 39 L Glucose 118 H Calcium 9.2 Total Bilirubin 1.6 H AST 37 ALT 26 Alkaline Phosphatase 80 Troponin I High Sens 22.7 H* B-Natriuretic Peptide Total Protein 7.4 Albumin 3.9 Globulin 3.5 Albumin/Globulin Ratio 1.1 Lipase 23 12/08/22 12/08/22 11:40 13:17 WBC RBC Hgb Hct MCV MCH MCHC RDW Plt Count MPV Neut # (Auto) Lymph # (Auto) [place] # (Auto) Eos # (Auto) Baso # (Auto) Absolute Nucleated RBC Nucleated RBC % Sodium Potassium Chloride Carbon Dioxide Anion Gap BUN Creatinine Estimated GFR (MDRD) Glucose Calcium Total Bilirubin AST ALT Alkaline Phosphatase Troponin I High Sens 23.4 H* B-Natriuretic Peptide 54 Total Protein Albumin Globulin Albumin/Globulin Ratio Lipase - Rads (name of study) cxr Relevant Findings:: Final report received (No acute cardiopulmonary process) CT abd Relevant Findings:: Final report received (No evidence of acute abdominal process. Cardiomegaly. Diffuse hepatic steatosis. Distended gallbladder without calcified stones gallbladder wall thickening or findings of acute cholecystitis) PD Medical Decision Making - ED course Complexity details: reviewed results, re-evaluated patient, considered differential, d/w patient ED course: 82-year-old female presents emergency department for evaluation of 2 days persistent nausea with some vomiting. She denies chest pain or abdominal pain. She does have a history of A-fib as well as being paced. She is on Eliquis. On presentation to the emergency department she appeared very nauseated. Initially she was administered a liter of IV fluid as well as Zofran. She reported the nausea improved only minimally thus she was then administered 5 mg of Compazine IV. On reevaluation the nausea had markedly improved and she was tolerating sips of clear liquids. Her abdominal exam had no abdominal tenderness elicited. I did obtain CBC, electrolytes which per my interpretation showed a chronic kidney disease. She did have a bilirubin that was mildly elevated at 1.6 but most recently had been 1.3. No other worrisome LFT abnormalities. High-sensitivity troponin was initially 22 and on recheck was 23 essentially static. Her EKG was paced rhythm but patient denied any chest pain. Given her history of atrial fibs I suspect the troponin to be a leak and not indicative of any acute coronary syndrome as a cause for her persistent nausea. Subsequently a CT of the abdomen was completed that showed no acute abdominal process. Cardiomegaly was noted as well as diffuse hepatic steatosis. She did have a distended gallbladder without any calcified stones being noted. No secondary findings such as gallbladder wall thickening to suggest acute cholecystitis. Given her very benign abdominal exam without tenderness, leukocytosis or fever I deferred other imaging. I discussed the CT imaging as well as laboratory findings with the patient and her and daughter at the bedside. Given improvement she will be discharged with prescription of Zofran as well as clear liquids for the next 24 hours. Will return to the ER if not markedly improved Departure - Departure Disposition: 01 Home, Self Care Clinical Impression: Nausea, History of atrial fibrillation, Hepatic steatosis Condition: Stable Record reviewed to determine appropriate education?: Yes Prescriptions: Ondansetron Odt [Zofran] 4 mg TL Q6H PRN #10 tablet PRN Reason: Nausea / Vomiting Comments: Leana sung came to the emergency department because you have been nauseated for the last several days. Your labs today showed some chronic kidney disease which is essentially unchanged. Your bilirubin was mildly elevated at 1.6 but your most recent labs show a bilirubin of 1.3. This is not likely clinically significant. We did do a CT of your abdomen that shows an enlarged gallbladder but nothing to suggest stones within the gallbladder or gallbladder wall thickening. Given your improvement in symptoms with some IV fluids and nausea medicine I feel that we can safely discharge you with a prescription of Zofran being sent to the [facility] [place]. Over the next 24 hours I encourage you to have frequent sips of clear liquids such as water, broth, apple juice or Pedialyte. If your nausea is improving then you can start to simple foods such as bananas, rice, applesauce and toast. If over the next several days you find that your symptoms are not improving, you have sudden severe abdominal pain, uncontrolled vomiting or develop any fevers then please return immediately to the ER. There were some incidental findings on your CT scan that show an enlarged heart. This is not uncommon in people that have a history of heart failure as well as atrial fibrillation. You also have findings of fatty liver on The CT scan. This is something to discuss with your primary doctor in the long-term as sometimes referral to gastroenterology can be helpful.
--- NOTE | 2022-12-08 11:55 | XRAY Report ---
PROCEDURE: Chest 1 View X-Ray INDICATIONS: chest pain TECHNIQUE: One view of the chest was acquired. COMPARISON: 02/24/2021. FINDINGS: Surgical changes and devices: Pacemaker Lungs and pleura: No pleural effusions or pneumothorax. Lungs are clear. Mediastinum: Mediastinal contours appear normal. Heart size is normal. Bones and chest wall: No suspicious bony lesions. Overlying soft tissues appear unremarkable. IMPRESSION: No acute cardiopulmonary process. Reviewed by: Sanjeev Cabezas MD on 12/08/2022 11:54 AM PDT Approved by: Sanjeev Cabezas MD on 12/08/2022 11:54 AM PDT Station ID: [id number]
[2022-12-08 12:02] LABS: ALBUMIN 3.9 g/dL (3.2-5.5); ALBUMIN/GLOBULIN RATIO 1.1 (1.0-2.2); BILIRUBIN,TOTAL 1.6 mg/dL (0.2-1.0); CALCIUM 9.2 mg/dL (8.5-10.3); CREATININE 1.3 mg/dL (0.4-1.0); TOTAL PROTEIN 7.4 g/dL (6.7-8.2)
[2022-12-08] MEDS ORDERED: SODIUM CHLORIDE 0.9% 1,000 ML IV STA (13:16)
[2022-12-08] MEDS ORDERED: PROCHLORPERAZINE 10 MG/2 ML VIAL IVP STA (13:17)
--- NOTE | 2022-12-08 13:51 | CT Report ---
PROCEDURE: ABDOMEN/PELVIS W INDICATIONS: persistent nausea CONTRAST: 100ml omni 350 TECHNIQUE: After the administration of intravenous contrast, 5 mm thick sections acquired from the diaphragms to the symphysis. 5 mm thick coronal and sagittal reformats were acquired. For radiation dose reducti on, the following was used: automated exposure control, adjustment of mA and/or kV according to ninfa ent size. COMPARISON: 07/28/2019 FINDINGS: Image quality: Excellent. Lung bases and heart: Cardiomegaly with enlargement of the left atrium, right ventricle, and right at rium. Pacemaker. Liver: No solid mass. Mild diffuse hepatic steatosis. Gallbladder and biliary tree: Gallbladder is distended without gallbladder wall thickening. No calcif ied gallstones. No dilated ducts. Spleen: No splenomegaly. Pancreas: No pancreatic ductal dilation. Adrenals: No adrenal nodule. Kidneys and ureters: No hydronephrosis. No renal cystic lesion which requires follow up. No solid mas s. Bowel and peritoneum: No bowel distension. No pathologic free fluid. Mild diverticulosis. Lymph nodes: No central or retroperitoneal adenopathy. Vessels: No infrarenal aortic aneurysm. PELVIS Reproductive organs: Unremarkable. Bladder: No abnormal wall thickening, accounting for underdistension. Pelvic lymph nodes: No pelvic adenopathy by size criteria. Bones: No aggressive osseous abnormality. L2-L4 posterior lateral chasity and pedicle screw fixation and posterior decompression. No compression fracture. Other: Fat-containing ventral abdominal wall hernia. No inguinal hernia. No inguinal adenopathy. IMPRESSION: 1. No evidence acute abdominal process. 2. Cardiomegaly. 3. While diffuse hepatic steatosis. 4. Distended gallbladder without calcified gallstones. Reviewed by: Sanjeev Cabezas MD on 12/08/2022 1:49 PM PDT Approved by: Sanjeev Cabezas MD on 12/08/2022 1:49 PM PDT Station ID: [id number]
[2022-12-08 15:48] VITALS: BP 112/78
== END 2022-12-08 15:45 | disposition home or self-care (01) ==
LOC: EDUNIT# → ED 11:19
DX: K76.0 Fatty (change of) liver, not elsewhere classified (principal); R11.0 Nausea; I48.91 Unspecified atrial fibrillation; E66.9 Obesity, unspecified; Z79.899 Other long term (current) drug therapy; Z79.01 Long term (current) use of anticoagulants
CPT/HCPCS: 36415; 71045; 74177; 80053; 83690; 83880; 84484; 85025; 93005; 96374; 96375; 99284; Q9967

== ENCOUNTER 2023-01-27 02:26 | Outpatient (CLI) | payer MEDICARE | END 2023-01-27 23:59 | disposition critical access hospital (66) | LOC: EMS 02:26 | DX: R53.81 Other malaise (principal); R11.0 Nausea; W18.30XA Fall on same level, unspecified, initial encounter; Y92.002 Bathroom of unspecified non-institutional (private) residence as the place of occurrence of the external cause | CPT/HCPCS: A0425; A0429 ==

== ENCOUNTER 2023-01-29 08:53 | Emergency (ER) | payer MEDICARE ==
--- OUTSIDE RECORDS SUMMARY | 2023-01-29 09:34 | EXTERNAL MEDICAL SUMMARY RPT | Continuity of Care Document ---
Author Name Unknown Address [address] [place] [address] Phone Organization [facility] Address [address] [place] [address] Phone Care Team Providers Care Sewer Pipe Offbearer Name Role Phone Unavailable Unavailable Unavailable Anthony Francis, Blaine Unavailable Unavailable Bill Patient Registrar, Adriel Unavailable U navailable Medications date description facility 2022-12-21 00:00 [facility]ixaban [facility] 2022-12-21 00:00 apixaban [facility] 2022-12-22 00:00 apixaban [facility] 2022-12-21 00:00 sacubitril-valsartan [facility] 2022-12-21 00:00 sacubitril-valsartan [facility] 2022-12-22 00:00 sacubitril-valsartan [facility] 2022-12-21 00:00 metoprolol succinate [facility] 2022-12-21 00:00 metoprolol succinate [facility] 2022-12-22 00:00 metoprolol succinate [facility] 2022-12-21 00:00 apixaban [facility] 2022-12-21 00:00 apixaban [facility] 2022-12-22 00:00 apixaban [facility] 2022-12-21 00:00 sacubitril-valsartan [facility] 2022-12-21 00:00 sacubitril-valsartan [facility] [place] 2022-12-22 00:00 sacubitril-valsartan [facility] [place] 2022-12-21 00:00 apixaban [facility] [place] 2022-12-21 00:00 apixaban [facility] [place] 2022-12-22 00:00 apixaban [facility] [place] 2022-12-21 00:00 sacubitril-valsartan [facility] [place] 2022-12-21 00:00 sacubitril-valsartan [facility] [place] 2022-12-22 00:00 sacubitril-valsartan [facility] [place] 2022-12-21 00:00 torsemide [facility] [place] 2022-12-21 00:00 torsemide [facility] [place] 2022-12-22 00:00 torsemide [facility] [place] 2022-12-21 00:00 metoprolol succinate [facility] [place] 2022-12-21 00:00 metoprolol succinate [facility] [place] 2022-12-22 00:00 metoprolol succinate [facility] [place] 2022-12-21 00:00 torsemide [facility] [place] 2022-12-21 00:00 torsemide [facility] [place] 2022-12-22 00:00 torsemide [facility] [place] 2022-12-21 00:00 sacubitril-valsartan [facility] [place] 2022-12-21 00:00 sacubitril-valsartan [facility] [place] 2022-12-22 00:00 sacubitril-valsartan [facility] 2022-12-21 00:00 torsemide [facility] 2022-12-21 00:00 torsemide [facility] 2022-12-22 00:00 torsemide [facility] 2022-12-21 00:00 torsemide [facility] 2022-12-21 00:00 torsemide [facility] 2022-12-22 00:00 torsemide [facility] 2022-12-21 00:00 metoprolol succinate [facility] 2022-12-21 00:00 metoprolol succinate [facility] 2022-12-22 00:00 metoprolol succinate [facility] 2022-12-21 00:00 apixaban [facility] 2022-12-21 00:00 apixaban [facility] 2022-12-22 00:00 apixaban [facility] 2022-12-21 00:00 metoprolol succinate [facility] 2022-12-21 00:00 metoprolol succinate [facility] 2022-12-22 00:00 metoprolol succinate [facility] Problems date description facility 2022-12-21 00:00 Constipation [facility] 2022-12-21 00:00 Acute urinary tract infection [facility] 2022-12-21 00:00 Constipation, unspecified [facility] 2022-12-21 00:00 Urinary tract infect ion, site not specified [facility] Procedures date description facility 2022-12-21 00:00 Visit Code Hold [facility] [place] Social History date description facility 2022-12-21 00:00 Former smoker [facility] [place] Vital Signs date measurement value units 2022-12-21 00:00 BMI 43.16 kg/m2 2022-12-21 00:00 BP_diastolic 53 mmHg 2022-12-21 00:00 BP_systolic 115 mmHg 2022-12-21 00:00 heart_rate 78 /min 2022-12-21 00:00 height_metric 164.01 cm 2022-12-21 00:00 height_standard 64.57 in 2022-12-21 00:00 respiration_rate 18 /min 2022-12-21 00:00 temperature_metric 36.11 C 2022-12-21 00:00 temperature_standard 97 F 2022-12-21 00:00 weight_metric 115.67 kg 2022-12-21 00:00 weight_standard 255 lb
[2023-01-29 09:50] LABS: BASOPHILS % (AUTO) 0.3 %; EOSINOPHILS # (AUTO) 0.1 10^3/uL (0.0-0.7); EOSINOPHILS % (AUTO) 1.6 %; HCT - HEMATOCRIT 41.9 % (37.0-47.0); HGB - HEMOGLOBIN 13.5 g/dL (12.0-16.0); LYMPHOCYTES # (AUTO) 0.6 10^3/uL (1.5-3.5); LYMPHOCYTES % (AUTO) 8.3 %; MEAN CORPUSCULAR HEMOGLOBIN 31.9 pg (27.0-31.0); MEAN CORPUSCULAR HGB CONC 32.2 g/dL (32.0-36.0); MEAN CORPUSCULAR VOLUME 99.1 fL (81.0-99.0); MEAN PLATELET VOLUME 11.1 fL (7.9-10.8); MONOCYTES # (AUTO) 0.7 10^3/uL (0.0-1.0); MONOCYTES % (AUTO) 8.8 %; NEUTROPHILS % (AUTO) 80.6 %; PLT - PLATELET COUNT 197 10^3/uL (130-450); RED BLOOD COUNT 4.23 10^6/uL (4.20-5.40); RED CELL DISTRIBUTION WIDTH 16.1 % (12.0-15.0); WHITE BLOOD COUNT 7.4 x10^3/uL (4.8-10.8)
--- NOTE | 2023-01-29 09:50 | ED Physician Documentation ---
PD HPI LOWER EXT INJURY - Stated complaint Stated Complaint: RT LEG WOUND - Chief complaint Chief Complaint: Ext Problem - History obtained from History obtained from: Patient - Additional information Additional information: About a week and a half ago her dog accidentally scratched her to the right leg. Starting yesterday she has a pinching pain there with increasing redness. No fevers. Couple of years ago had a similar issue and ended up bacteremic and was on IV antibiotics for 2 weeks. 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 and currettage Cardiovascular: Pacemaker - Present Medications Home Medications: Ambulatory Orders Medication Instructions Recorded Confirmed Acetaminophen [Pain Relief] 1,000 mg PO BID 08/26/13 12/08/22 Morphine Sulfate [Morphine Sulfate 30 mg PO BID 08/26/13 12/08/22 ER] carvediloL [Coreg] 6.25 mg PO BID 08/26/13 12/08/22 DULoxetine [Cymbalta] 30 mg PO DAILY 03/10/19 12/08/22 Spironolactone 50 mg PO QDBREAKFAST 03/10/19 12/08/22 Apixaban [Eliquis] 5 mg BID 02/19/21 12/08/22 Omeprazole [PriLOSEC] 20 mg PO DAILY 02/19/21 12/08/22 Acetaminophen [Tylenol] 650 mg PO Q6HR PRN tablet 02/25/21 12/08/22 Pregabalin [Lyrica] 75 mg PO BID #30 cap 02/25/21 12/08/22 Hydroxychloroquine [Plaquenil] 200 mg PO DAILY 12/08/22 12/08/22 Ondansetron Odt [Zofran] 4 mg TL Q6H PRN #10 tablet 12/08/22 Torsemide 5 mg PO DAILY 12/08/22 12/08/22 Amox/Clav 875/125 [Augmentin] 1 each PO Q12H #20 tablet 01/29/23 - Allergies Allergies/Adverse Reactions: Allergies Allergy/AdvReac Type Severity Reaction Status Date / Time metolazone Allergy Severe Unknown Verified 01/27/23 03:02 ibuprofen [From Advil] Allergy Intermediate Rash Verified 01/27/23 03:02 gabapentin Allergy Hives Verified 01/27/23 03:02 - Social History Does the pt smoke?: No Smoking Status: Never smoker Does the pt drink ETOH?: No Does the pt have substance abuse?: No - Immunizations Immunizations are current?: Yes - POLST Patient has POLST: No POLST Status: Full Code PD ED PE NORMAL - Vitals Vital signs reviewed: Yes - General General: Alert and oriented X 3, No acute distress - Neck Neck: Supple, no meningeal sign, No bony TTP - Cardiac Cardiac: RRR, No murmur - Respiratory Respiratory: Clear bilaterally - Abdomen Abdomen: Non tender - Derm Derm: Normal color, Warm and dry - Extremities Extremities: Other (Triangular-shaped mildly infected wound on the right lower extremity anteriorly with cellulitis up to mid/upper elias.) - Neuro Neuro: Alert and oriented X 3, Normal speech Results - Vitals Vitals: Vital Signs - 24 hr 01/29/23 09:07 Temperature 36.2 C L Heart Rate 62 Respiratory 18 Rate Blood Pressure 112/64 O2 Saturation 95 Oxygen O2 Source Room air - Labs Labs: Microbiology 01/29/23 09:50 Wound Culture - Preliminary Leg - Right Laboratory Tests 01/29/23 01/29/23 01/29/23 09:36 09:36 09:45 WBC 7.4 RBC 4.23 Hgb 13.5 Hct 41.9 MCV 99.1 H MCH 31.9 H MCHC 32.2 RDW 16.1 H Plt Count 197 MPV 11.1 H Neut # (Auto) 6.0 Lymph # (Auto) 0.6 L [place] # (Auto) 0.7 Eos # (Auto) 0.1 Baso # (Auto) 0.0 Absolute Nucleated RBC 0.00 Nucleated RBC % 0.0 Sodium 136 Potassium 4.9 H Chloride 102 Carbon Dioxide 26 Anion Gap 8.0 BUN 43 H Creatinine 1.6 H Estimated GFR (MDRD) 31 L Glucose 106 H Lactic Acid 1.3 Calcium 9.2 Total Bilirubin 0.7 AST 35 ALT 25 Alkaline Phosphatase 80 Total Protein 6.8 Albumin 3.6 Globulin 3.2 Albumin/Globulin Ratio 1.1 PD Medical Decision Making - ED course ED course: 83-year-old woman presents with a cellulitis of a dog scratch wound on the right leg. Previously has been bacteremic with this in the past but at this point the initial labs including CBC without leukocytosis and lactate are unremarkable. She was administered Augmentin here. Departure - Departure Disposition: 01 Home, Self Care Clinical Impression: Cellulitis of right lower extremity Condition: Good Record reviewed to determine appropriate education?: Yes Instructions: ED Infec Skin Cellulitis Follow-Up: DYLAN CERVANTES ARNP [Physician No Access] - Prescriptions: Amox/Clav 875/125 [Augmentin] 1 each PO Q12H #20 tablet Comments: We are performing a wound culture, the results should be done in 48-72 hours. If antibiotic change is necessary we will call you. Return if worse in the meantime, especially if you develop increased pain, fevers, cannot keep down the medication. Otherwise follow-up with your physician in approximately 2-3 days. Talk with your primary care nurse practitioner about a referral to wound care at that visit. Forms: PCP List
[2023-01-29 10:08] LABS: ALBUMIN 3.6 g/dL (3.2-5.5)
[2023-01-29 10:09] LABS: ALBUMIN/GLOBULIN RATIO 1.1 (1.0-2.2); BILIRUBIN,TOTAL 0.7 mg/dL (0.2-1.0); CALCIUM 9.2 mg/dL (8.5-10.3); CREATININE 1.6 mg/dL (0.6-1.3); POTASSIUM 4.9 mmol/L (3.5-4.5); TOTAL PROTEIN 6.8 g/dL (6.4-8.9)
[2023-01-29] MEDS ORDERED: AMOX/CLAV 875 MG/125 MG TABLET PO STA (10:42)
[2023-01-29 11:11] VITALS: BP 96/62
== END 2023-01-29 11:04 | disposition home or self-care (01) ==
LOC: ED 08:53
DX: L03.115 Cellulitis of right lower limb (principal)
CPT/HCPCS: 36415; 80053; 83605; 85025; 87040; 87070; 87077; 87205; 99283; 99284; A9270

== ENCOUNTER 2023-02-20 14:27 | Outpatient (CLI) | payer MEDICARE ==
--- NOTE | 2023-02-20 14:39 | Sleep Patient Instructions ---
Sleep Center Visit Summary - Patient Visit Information Reason for Visit: Initial consult for evaluation of sleep disordered breathing and other sleep issues. - Patient Instructions Instructions Attached: Sleep Study, Sleep Clinic Visit Additional Instructions: You will be completing a sleep study, either an in-lab polysomnography (PSG) or home sleep study (HST). You will follow-up in the sleep care office after the sleep study is completed to hear the results and talk about therapy, if needed. You will be called by our office staff to schedule this appointment, but you may contact us with any questions. - Clinic Information Contact: [facility] [address] [place] [address] [email or web address] T: [phone]
--- NOTE | 2023-02-20 14:45 | SLEEP CARE CONSULTATION ---
Information from patient questionnaire entered by Geo Peralta. I have reviewed and concur with the information entered by Geo Peralta. This document represents the service I personally performed and the decisions made by me, Val Meadows ARNP. History of Present Illness Service Date and Time: 02/20/2023 1420 Reason for Visit: New patient (REPORT FROM OVERNIGHT STAY AT [facility], ALARMS SET OFF) Chief Complaint: reports: Fatigue, Other Usual bedtime: 130-2AM Time it takes to fall asleep: 30MIN, quickly asleep Snores at night: No Observed to quit breathing while asleep: No Sleeps alone due to snoring: No Number of times waking at night: 1 Reasons for waking at night: reports: Bathroom. denies: Choking, Snoring, Gasping for air Toss, Turn, or Twitch while sleeping: No Recalls having dreams: Yes Usually gets out of bed at: 8-10AM Feels refreshed in the morning: Yes (normally) Morning headache: No Sleepy or fatigued during the day: Yes Ever fallen asleep while driving: Yes (drowsy driving before 1989, when working) Takes day naps: Yes (takes "cat naps", not every day) Dreams during day naps: No Prior sleep studies: No Additional HPI information: I had the pleasure of seeing NAZARIO DAMIAN today regarding the possibility of her having a sleep disorder. Her current complaint is that at a overnight stay at an ED and was setting the alarms were being set off from not breathing. She states her tells her that she does not snore or stop breathing at night. She denies waking up choking, gasping for air or snoring waking her up. She states she sleeps well. She falls asleep quickly and only wakes up around 4 AM to go to the bathroom. She states she is mostly rested in the mornings. She does get tired through the day sometimes and is known to take a cat nap. 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 Patient is and lives in [place]. Have you smoked in the past 12 months: No Cigarettes per day (20/pack): 40 Years of smokin Quit date: 1979 Smoking Pack Years: 4.0 Alcohol use: Yes Alcohol amount and frequency: 3 GLASSES OF WINE WEEKEND NIGHTS - not having much anymore, even on weekend Caffeine use: Yes Caffeine amount and frequency: 2 CUPS 7 DAYS Family History Family history of sleep disordered breathing: No Allergies and Home Medications Known drug allergies: Yes (as listed) Drug allergies reviewed: Yes Home medication list reviewed: Yes (see updated list in EMR) Allergy and home medication list: Allergies metolazone Allergy (Severe, Verified 02/19/23 09:57) Unknown ibuprofen [From Advil] Allergy (Intermediate, Verified 02/19/23 09:57) Rash gabapentin Allergy (Verified 02/19/23 09:57) Hives Review of Systems Weight gain over past 5 years: 5 Cardiovascular: reports: high blood pressure, irregular heart rate or pulse, leg or foot swelling Respiratory: reports: shortness of breath Gastrointestinal: reports: other (CONSTIPATION) Urinary: reports: incontinence Neurological: denies: headaches Ear/Nose/Throat: reports: nose bleeds, dry mouth/throat. denies: tonsillectomy Musculoskeletal: reports: joint pain, back pain, mobility problems Physical Exam Vital signs obtained and entered by: GEO Adams MA Blood Pressure: 100/62 (LEFT ARM) Cuff size: regular Heart Rate: 64 O2 Saturation: 94 Height: 5 ft 4 in Weight: 257 lb 9.6 oz Body Mass Index: 44.1 BMI Classification: Morbidly Obese Neck circumference: 16 Mouth and throat: narrow oropharynx Soft palate: long Hard palate: normal Uvula: normal Uvula visualization: 0% Mallampati Class IV Tongue: normal in size Tonsils: small Neck: normal w/o lymphadenopathy or thyromegaly Heart: regular rate and rhythm Lungs: clear bilaterally Impression and Plan 1. Suspected Obstructive Sleep Apnea-Hypopnea Syndrome, as suggested by a history of unrefreshed sleep, cognitive impairment, and low oxygen alarms when at a ED overnight stay. Narrow oropharynx and obesity are common predisposing factors for obstructive sleep apnea-hypopnea syndrome. I recommend proceeding to polysomnography to confirm the diagnosis and to assess severity. If the patient has significant sleep disordered breathing, a manual CPAP titration study will also be performed to find the optimal treatment pressure. I informed the patient of what the sleep studies involve and after some discussion, obtained agreement to proceed. The pathophysiology of obstructive sleep apnea-hypopnea syndrome was discussed with the patient and health risks of cardiovascular and cerebrovascular disease if not treated. Risks of drowsy driving discussed in detail and patient advised to avoid long distance driving and to black puller at the first sign of drowsiness. Patient agreed to plan. * Schedule polysomnography. * Avoid long distance driving or driving when feeling sleepy. * Avoid alcohol, sedative and muscle relaxant around bedtime. * Attempt to lose weight. * Review instructions provided by trained office staff on how to prepare for the sleep study. * Return for follow-up after sleep study completed. Counseling Topics: Weight loss health impact Visit Type: In Office Time Spent with Patient (minutes): 34 Provider Statement: I spent 100% of the Face to Face Visit with the patient with greater than 50% spent counseling the patient and coordination of care.
[2023-02-20 15:08] VITALS: BP 100/62; O2SAT 94
== END 2023-02-20 14:28 | disposition home or self-care (01) ==
LOC: SC 14:27
PROVIDERS: ATTEND Nurse Practitioner Family
DX: R53.83 Other fatigue (principal); I11.0 Hypertensive heart disease with heart failure; I50.9 Heart failure, unspecified; I48.91 Unspecified atrial fibrillation; F32.A Depression, unspecified; E66.01 Morbid (severe) obesity due to excess calories; Z68.41 Body mass index [BMI] 40.0-44.9, adult; Z87.891 Personal history of nicotine dependence
CPT/HCPCS: 99203; G0463; 99212

== ENCOUNTER 2023-04-10 16:12 | Outpatient (CLI) | payer MEDICARE ==
--- NOTE | 2023-04-10 16:05 | SLEEP CARE CONSULTATION ---
Information from patient questionnaire entered by Claudia Peralta. I have reviewed and concur with the information entered by Claudia Peralta. This document represents the service I personally performed and the decisions made by me, Val Meadows ARNP. History of Present Illness Service Date and Time: 04/10/2023 1540 Initial [place] Sleepiness Scale score: 9 (02/19/23) Current [place] Sleepiness Scale score: 9 (04/10/23) Additional HPI information: NAZARIO DAMIAN returns via video telehealth visit for follow up and results of the recently performed polysomnography. Her sleep study showed very severe obstructive sleep apnea with an average AHI of 76.8 and khalida oxygen saturation of 85%. I explained the pathophysiology behind obstructive sleep apnea. We then spent quite a bit of time discussing different treatment options. For mild obstructive sleep apnea, surgery and oral appliance are alternatives to nasal CPAP therapy but in moderate or severe cases, nasal CPAP is the most effective and reliable treatment. I reviewed the impact of weight changes on sleep apnea and strongly recommended losing weight. After some discussion, the patient opted to go with the nasal CPAP therapy. Nasal autoCPAP set at 5-15 cmH20 will be ordered with rationale explained. A manual titration study will be ordered if unable to find optimal pressure with office adjustments. I explained how CPAP machine works and what to expect when using the machine. Using CPAP every night in order to get used to it was emphasized. Patient advised to put CPAP mask on before getting into bed so as not to fall asleep without CPAP. To assist acclimation to CPAP use, it could also be used for a short time during day while reading or watching TV. The patient was instructed to call the CPAP supplier to discuss any mechanical problem that may occur. If the mask given is uncomfortable or is difficult to keep on through the night even with adjustment, contact the CPAP supplier as many will replace with another mask style if notified before 30 days. If snoring or perceives is not getting enough air or too much air from the machine, notify this office. Patient counseled not drink alcohol less than 4 hours before bedtime as it can increase snoring and apnea. Patient was cautioned about risks of drowsy driving until sleepiness symptoms resolve. Patient denies drowsy driving. Sleep Study - Results Type of Sleep Study: Polysomnography (COMPLETED ON 03/29/23) Prior sleep studies: No Polysomnography/Home Sleep Study results: IMPRESSION: The quality of the study is good. The patient had normal sleep efficiency. The sleep architecture was abnormal for sleep fragmentation and lack of slow wave sleep (N3). Respiratory monitoring showed very severe obstructive sleep apnea-hypopnea (AHI = 76.8) associated with frequent arousals, oxyhemoglobin desaturation and mild hypoxia (khalida oxygen saturation of 85%). There appeared to also be Donny-Moreno respiration. The patient only slept supine during this study (supine AHI = 76.9; non-supine = 0.00). Snore was light to loud in intensity. There was no significant periodic leg movement of sleep. Cardiac rhythm was paced at 60 beats per minute. No abnormal behavior (parasomnia) observed during the night. Allergies and Home Medications Known drug allergies: Yes (as listed) Drug allergies reviewed: Yes Home medication list reviewed: Yes (stopped hydrochloriquine) Allergy and home medication list: Allergies metolazone Allergy (Severe, Verified 02/20/23 14:00) Unknown ibuprofen [From Advil] Allergy (Intermediate, Verified 02/20/23 14:00) Rash gabapentin Allergy (Verified 02/20/23 14:00) Hives Review of Systems Review of systems same as previous: Yes (NO CHANGE) Physical Exam Vital signs obtained and entered by: CLAUDIA Adams MA Height: 5 ft 6 in (PER PT) Weight: 255 lb (PER PT) Body Mass Index: 41.1 BMI Classification: Morbidly Obese Impression and Plan 1. Obstructive Sleep Apnea-Hypopnea Syndrome, very severe, with lowest oxygen saturation of 85%. Obviously this is the cause of the patients symptoms of unrefreshed sleep, and excessive daytime sleepiness. Positive pressure therapy could benefit hypertension, CHF, Afib, fibromyalgia and depression. As mentioned above, the patient will be started on nasal autoCPAP therapy with pressure set at 5-15 cmH2O. Compliance guidelines also reviewed. A copy of compliance guidelines will be given for reference at check out. 2. Obesity, unspecified. Currently patients BMI is 41.1. Obesity increases the risk of apnea, CPAP pressure requirements and overall health risks especially cardiovascular and diabetes. Thus patient is advised to lose weight. * Nasal auto CPAP therapy, pressure at 5-15 cm H2O. * Attempt to lose weight. * Avoid alcohol consumption near bedtime. * Avoid supine sleep until using CPAP. * The patient is again cautioned about driving until sleepiness completely resolves. * Return one month after CPAP obtained. I will assess response to therapy and compliance at that time. Counseling Topics: Weight loss health impact Prescriptions: Auto CPAP Visit Type: Telehealth Video Video Type: Doximity Patient Location: Home Location of Provider: Office Patient agrees and consents to this telehealth visit type: Yes Patient agrees to have their insurance billed: Yes Time Spent with Patient (minutes): 27 Provider Statement: I spent 100% of the Telehealth Video Call with the patient with greater than 50% spent counseling the patient and coordination of care.
== END 2023-04-10 16:13 | disposition home or self-care (01) ==
LOC: SC 16:12
PROVIDERS: ATTEND Nurse Practitioner Family
DX: G47.33 Obstructive sleep apnea (adult) (pediatric) (principal); E66.01 Morbid (severe) obesity due to excess calories; Z68.41 Body mass index [BMI] 40.0-44.9, adult

== ENCOUNTER 2023-04-19 14:41 | Outpatient (CLI) | payer MEDICARE ==
[2023-04-19 20:07] LABS: CALCIUM 9.6 mg/dL (8.5-10.3); CREATININE 1.5 mg/dL (0.6-1.3); POTASSIUM 5.2 mmol/L (3.5-4.5)
== END 2023-04-19 14:42 | disposition home or self-care (01) ==
LOC: LAB.S 14:41
PROVIDERS: ATTEND Internal Medicine Cardiovascular Disease
DX: I11.0 Hypertensive heart disease with heart failure (principal); I50.22 Chronic systolic (congestive) heart failure
CPT/HCPCS: 36415; 80048; 83880

== ENCOUNTER 2023-07-17 09:52 | Outpatient (CLI) | payer MEDICARE ==
--- NOTE | 2023-07-17 09:49 | SLEEP CARE CONSULTATION ---
Information from patient questionnaire entered by Geo Peralta. I have reviewed and concur with the information entered by Geo Peralta. This document represents the service I personally performed and the decisions made by me, Val Meadows ARNP. History of Present Illness Service Date and Time: 07/17/2023919 Previous diagnosis: Very Severe, Obstructive Sleep Apnea-Hypopnea Syndrome AHI: 76.8 Reason for follow up: first compliance Equipment type: CPAP (RESMED Arisense 11, s/u 05/2023) Equipment obtained from: [employer] (getting supplies) Mask style: Nasal Mask brand: Resmed (N20, with memory foam) Backup mask available: No (will keep old mask when replaced) Last cushion change: 1 month Prior sleep studies: No Type of Sleep Study: Polysomnography (COMPLETED ON 03/29/23) HPI additional information: NAZARIO DAMIAN was diagnosed to have very severe, AHI 76.8, obstructive sleep apnea-hypopnea syndrome and returns via video appointment today for CPAP therapy first compliance follow-up. Sleep Study - Results Type of Sleep Study: Polysomnography (COMPLETED ON 03/29/23) Prior sleep studies: No CPAP Compliance Data - Data Reviewed with Patient Average duration of nightly device use: 5 HRS 56 MINS Compliance rate %: 70 (06/10/23-07/09/23; /30 days used) Current pressure setting (cmH2O): 5-15 (median 9.7, avg 12.2, max 13.3) Average residual AHI: 25.6 (unknown 11.8) Central apnea: 5.4 Obstructive apnea: 8.1 Hypopnea: 0.2 Average large leak: 17.2 L/min Subjective Missed days of use due to: reports: other (bloody nose) Patient concerns: reports: dry mouth, nose, throat (dry mouth, happening before CPAP), epistaxis. denies: aerophagia, mask discomfort, air blowing in eyes, mask leak noise, condensation in mask/hose, nasal congestion Observed to snore while using device: No Current pressure setting perceived as: comfortable On therapy, patient: reports: other (not really feeling improvement yet). denies: drowsiness while driving Initial [place] Sleepiness Scale score: 9 (02/19/23) Current [place] Sleepiness Scale score: 6 (07/17/23) Allergies and Home Medications Known drug allergies: Yes (as listed) Drug allergies reviewed: Yes Home medication list reviewed: Yes (no changes) Allergy and home medication list: Allergies metolazone Allergy (Severe, Verified 07/16/23 13:10) Unknown ibuprofen [From Advil] Allergy (Intermediate, Verified 07/16/23 13:10) Rash gabapentin Allergy (Verified 07/16/23 13:10) Hives Review of Systems Review of systems same as previous: Yes (NO CHANGE) Physical Exam Vital signs obtained and entered by: GEO Adams MA Height: 5 ft 6 in (PER PT) Weight: 245 lb (PER PT) Body Mass Index: 39.5 BMI Classification: Obese Impression and Plan 1. Obstructive Sleep Apnea-Hypopnea Syndrome, very severe, with good treatment compliance and good apnea control. On CPAP therapy, the patient does not really feel much improvement yet. She had a nose bleed last weekend and stopped using the CPAP. She is on a blood thinner. Epistaxis or nasal dryness can be reduced with increasing the CPAP humidity and the heated hose can be increased if condensation. I advised her to try a nasal moisturizer, Aurora, that she can obtain OTC to be used nightly before using CPAP to keep her nasal lining moist and reduce bloody noses. She voiced understanding. The patients pressure will be changed to autoCPAP 10-14 cmH20 for elevation of residual AHI. Patient advised to contact me if pressure change is uncomfortable so that it can be adjusted. Goals for apnea control discussed. Patient's apnea severity and rationale for treatment to reduce apnea, improve sleep quality and reduce cardiovascular and cerebrovascular events was reviewed. I also reviewed the benefit of consistent device use of CPAP for hypertension, cardiac disease (CHF), arrhythmia, fibromyalgia and depression. 2. Obesity, unspecified. Currently patients BMI is 39.5. Obesity increases the risk of apnea, CPAP pressure requirements and overall health risks especially cardiovascular and diabetes. Thus patient is advised to lose weight. * Change auto CPAP pressure to 10-14 cmH2O * Notify me if snoring with mask or feeling that the pressure is too much or too little * Attempt to lose weight * Call this office if any problems using CPAP * Return for follow up in 1-2 months, or sooner if concerns arise Adjust device pressure to (cmH2O): 10-14 Counseling Topics: Spare mask, Weight loss health impact Follow up with Sleep Care in: 1-2 months Visit Type: Telehealth Video Video Type: Doximity Patient Location: Home Location of Provider: Office Patient agrees and consents to this telehealth visit type: Yes Patient agrees to have their insurance billed: Yes Time Spent with Patient (minutes): 25 Provider Statement: I spent 100% of the Telehealth Video Call with the patient with greater than 50% spent counseling the patient and coordination of care.
== END 2023-07-17 09:53 | disposition home or self-care (01) ==
LOC: SC 09:52
PROVIDERS: ATTEND Nurse Practitioner Family
DX: G47.33 Obstructive sleep apnea (adult) (pediatric) (principal); E66.9 Obesity, unspecified; Z68.39 Body mass index [BMI] 39.0-39.9, adult

== ENCOUNTER 2023-08-17 11:59 | Outpatient (CLI) | payer MEDICARE ==
--- NOTE | 2023-08-17 11:19 | SLEEP CARE CONSULTATION ---
Information from patient questionnaire entered by Claudia Peralta. I have reviewed and concur with the information entered by Claudia Peralta. This document represents the service I personally performed and the decisions made by , Val Meadows ARNP. History of Present Illness Service Date and Time: 08/17/2023 1040 Previous diagnosis: Very Severe, Obstructive Sleep Apnea-Hypopnea Syndrome AHI: 76.8 Reason for follow up: one month (F/U) Equipment type: CPAP (RESMED Arisense , s/u 05/2023) Equipment obtained from: [employer] (getting supplies) Mask style: Nasal Mask brand: Resmed (N20) Backup mask available: No Last cushion change: last week Prior sleep studies: No Type of Sleep Study: Polysomnography (COMPLETED ON 03/29/23) HPI additional information: NAZARIO DAMIAN was diagnosed to have very severe, AHI 76.8, obstructive sleep apnea-hypopnea syndrome and returns via video appointment today for CPAP therapy one month follow-up. Sleep Study - Results Type of Sleep Study: Polysomnography (COMPLETED ON 03/29/23) Prior sleep studies: No CPAP Compliance Data - Data Reviewed with Patient Average duration of nightly device use: 3 HRS 6 MINS Compliance rate %: 23 (07/16/23-08/14/23; 23/30 days used) Current pressure setting (cmH2O): 10-12 Average residual AHI: 40.6 (unknown 20.2) Central apnea: 14.8 Obstructive apnea: 5.3 Hypopnea: 0.3 Average large leak: 26.4 L/min Subjective Missed days of use due to: reports: mask issues Patient concerns: reports: mask discomfort (straps hurt sides of head), mask leak noise, other (when breathing mask makes noise). denies: aerophagia, air blowing in eyes, condensation in mask/hose, nasal congestion, dry mouth, nose, throat, epistaxis Observed to snore while using device: No Current pressure setting perceived as: noisy On therapy, patient: reports: other (not feeling rested or sleeping well due to noise of mask). denies: sleeping better, more rested overall, drowsiness while driving Initial [place] Sleepiness Scale score: 9 (02/19/23) Current [place] Sleepiness Scale score: 5 (02/09/24) Allergies and Home Medications Known drug allergies: Yes (as listed) Drug allergies reviewed: Yes Home medication list reviewed: Yes (no changes) Allergy and home medication list: Allergies metolazone Allergy (Severe, Verified 08/15/23 10:29) Unknown ibuprofen [From Advil] Allergy (Intermediate, Verified 08/15/23 10:29) Rash gabapentin Allergy (Verified 08/15/23 10:29) Hives Review of Systems Review of systems same as previous: Yes (NO CHANGE) Physical Exam Vital signs obtained and entered by: CLAUDIA Adams MA Blood Pressure: 134/62 (PER PT ) Height: 5 ft 6 in (PER PT) Weight: 245 lb (PER PT) Body Mass Index: 39.5 BMI Classification: Obese Impression and Plan 1. Obstructive Sleep Apnea-Hypopnea Syndrome, very severe, with poor treatment compliance and fair apnea control with elevated residual AHI. On CPAP therapy, the patient says she is not sleeping better because the mask is so noisy it is waking her up or not letting her fall asleep. She says she is trying but she is "dreading" putting the mask on at night and thinks it may be causing her some depressive feelings. She has a significantly elevated residual AHI but she declines coming in for a titration study because she does not feel comfortable about driving at night in the dark. She has elevated central index with many unknown events and a very large average leak. I will make another adjustment of her pressure to try to correct issues and order another mask fitting. The patients pressure will be changed to autoCPAP 6-10 cmH20 for elevation of residual AHI. Patient advised to contact me if pressure change is uncomfortable so that it can be adjusted. Goals for apnea control discussed. Patient's apnea severity and rationale for treatment to reduce apnea, improve sleep quality and reduce cardiovascular and cerebrovascular events was reviewed. I also reviewed the benefit of consistent device use of CPAP for hypertension, cardiac disease (CHF), arrhythmia and depression. 2. Obesity, unspecified. Currently patients BMI is 39.5. Obesity increases the risk of apnea, CPAP pressure requirements and overall health risks especially cardiovascular and diabetes. Thus patient is advised to lose weight. * Change auto CPAP pressure to 6-10 cmH2O * Mask refitting * Notify me if snoring with mask or feeling that the pressure is too much or too little * Attempt to lose weight * Call this office if any problems using CPAP * Return for follow up in 1-2 months, or sooner if concerns arise Counseling Topics: Spare mask, Weight loss health impact Follow up with Sleep Care in: 1-2 months Visit Type: Telehealth Video Video Type: Doximdarron Patient Location: Home Location of Provider: Office Patient agrees and consents to this telehealth visit type: Yes Time Spent with Patient (minutes): 25 Provider Statement: I spent 100% of the Telehealth Video Call with the patient with greater than 50% spent counseling the patient and coordination of care.
[2023-08-17 11:21] VITALS: BP 134/62
== END 2023-08-17 12:00 | disposition home or self-care (01) ==
LOC: SC 11:59
PROVIDERS: ATTEND Nurse Practitioner Family
DX: G47.33 Obstructive sleep apnea (adult) (pediatric) (principal); E66.9 Obesity, unspecified; Z68.39 Body mass index [BMI] 39.0-39.9, adult

== ENCOUNTER 2023-09-25 09:47 | Outpatient (CLI) | payer MEDICARE ==
--- NOTE | 2023-09-25 10:35 | Sleep Patient Instructions ---
Sleep Center Visit Summary - Patient Visit Information Reason for Visit: 1 to 2-month follow-up after pressure change - Patient Instructions Additional Instructions: You will be completing a titration sleep study in our sleep lab where you will be sleeping with the CPAP machine on and we will be adjusting your pressures to find your optimal pressure settings. Once we have your results back, we will call you and schedule a follow up to go over the results. You will be called by our office staff to schedule your follow up, but you may contact us with any questions or issue as needed. - Clinic Information Contact: [facility] [address] [place] [email or web address] T: [phone]
--- NOTE | 2023-09-25 10:42 | SLEEP CARE CONSULTATION ---
Information from patient questionnaire entered by Claudia Peralta. I have reviewed and concur with the information entered by Claudia Peralta. This document represents the service I personally performed and the decisions made by , Val Meadows ARNP. History of Present Illness Service Date and Time: 09/25/2023 09 Previous diagnosis: Very Severe, Obstructive Sleep Apnea-Hypopnea Syndrome AHI: 76.8 Reason for follow up: other (2 MONTH F/U) Equipment type: CPAP (RESMED Arisense , s/u 05/2023) Equipment obtained from: [facility] (getting supplies) Mask style: Nasal Mask brand: Resmed (N20) Backup mask available: No Last cushion change: 1 week Prior sleep studies: No Type of Sleep Study: Polysomnography (COMPLETED ON 03/29/23) HPI additional information: NAZARIO DAMIAN was diagnosed to have very severe, AHI 76.8, obstructive sleep apnea-hypopnea syndrome and returned today for CPAP therapy one month follow-up. Sleep Study - Results Type of Sleep Study: Polysomnography (COMPLETED ON 03/29/23) Prior sleep studies: No CPAP Compliance Data - Data Reviewed with Patient Average duration of nightly device use: 4 HRS 48 MINS Compliance rate %: 65 (07/23/23-09/20/23; 90% last 30 days) Current pressure setting (cmH2O): 6-10 (avg 10.4) Average residual AHI: 30.6 (unknown 14) Central apnea: 6.1 Obstructive apnea: 9.9 Hypopnea: 0.4 Average large leak: 19.5 L/min Subjective Patient concerns: reports: mask leak noise, condensation in mask/hose (frequent), other (noisy). denies: aerophagia, mask discomfort, air blowing in eyes, nasal congestion, dry mouth, nose, throat, epistaxis Observed to snore while using device: No Current pressure setting perceived as: comfortable On therapy, patient: reports: other (not feeling improvement of sleep or restfulness overall). denies: drowsiness while driving Initial [place] Sleepiness Scale score: 9 (02/19/23) Current [place] Sleepiness Scale score: 6 Allergies and Home Medications Known drug allergies: Yes (as listed) Drug allergies reviewed: Yes Home medication list reviewed: Yes (no changes) Allergy and home medication list: Allergies metolazone Allergy (Severe, Verified 09/21/23 12:00) Unknown ibuprofen [From Advil] Allergy (Intermediate, Verified 09/21/23 12:00) Rash gabapentin Allergy (Verified 09/21/23 12:00) Hives Review of Systems Review of systems same as previous: Yes (no changes) Physical Exam Vital signs obtained and entered by: VAL JONES Blood Pressure: 94/51 Cuff size: wrist (right) Heart Rate: 70 O2 Saturation: 96 Height: 5 ft 6 in (PER PT) Weight: 265 lb 6.4 oz Body Mass Index: 42.8 BMI Classification: Morbidly Obese Impression and Plan 1. Obstructive Sleep Apnea-Hypopnea Syndrome, very severe, with good treatment compliance and fair apnea control with elevated residual AHI. She does not feel she is overall sleeping well or rested but she only average just under 5 hours of sleep nightly. She was advised to try to get closer to 6-6.5 hours night to improve overall restfulness. She continues to have an elevated residual AHI but the numbers did reduce overall with last pressure change to 6-10 cmH2O. The CI is at 6.1, OI 9.9, HI 0.4 and unknown 14. Her average large leak reduced to 19.5 L/min. Patient's pressure setting is still not optimal to control sleep apnea. I advised patient that a titration study will be next step to determine a more optimal pressure setting. They voiced understanding and agreement as long as she can schedule when it is not too dark at night for night driving. We will work with her on this and then followup up after the titration study. She continues to have a lot of mask leak noise that is keeping her from sleeping well. I tried a different mask on because if she snugs up her mask headgear it is not comfortable, so she will loosen it. I tried a [place] View, small cushion, with good fit and she will try at home. Patient's apnea severity and rationale for treatment to reduce apnea, improve sleep quality and reduce cardiovascular and cerebrovascular events was reviewed. I also reviewed the benefit of consistent device use of CPAP for hypertension, cardiac disease (CHF), depression and anxiety. 2. Obesity, unspecified. Currently patients BMI is 42.8. Obesity increases the risk of apnea, CPAP pressure requirements and overall health risks especially cardiovascular and diabetes. Thus patient is advised to lose weight. * Continue auto CPAP pressure at 6-10 cmH2O * Fitted to [employer] [place] View, small cushion * Titration study * Notify me if snoring with mask or feeling that the pressure is too much or too little * Attempt to lose weight * Call this office if any problems using CPAP * Return for follow up after titration study, or sooner if concerns arise Mask provided: Yes Counseling Topics: Weight loss health impact Follow up with Sleep Care in: other (after titration study) Plan: Titration study Visit Type: In Office Time Spent with Patient (minutes): 29 Provider Statement: I spent 100% of the Face to Face Visit with the patient with greater than 50% spent counseling the patient and coordination of care.
[2023-09-25 10:48] VITALS: BP 94/51; O2SAT 96
== END 2023-09-25 09:48 | disposition home or self-care (01) ==
LOC: SC 09:47
PROVIDERS: ATTEND Nurse Practitioner Family
DX: G47.33 Obstructive sleep apnea (adult) (pediatric) (principal); E66.01 Morbid (severe) obesity due to excess calories; Z68.41 Body mass index [BMI] 40.0-44.9, adult
CPT/HCPCS: 99213; G0463; 99212

== ENCOUNTER 2023-10-12 08:00 | Outpatient (CLI) | payer MEDICARE | END 2023-10-12 23:59 | disposition home or self-care (01) | LOC: LAB.WC 08:00 | PROVIDERS: ATTEND Nurse Practitioner | DX: L03.115 Cellulitis of right lower limb (principal) | CPT/HCPCS: 87070; 87077; 87181; 87205 ==